=== PATIENT | female | born 1935 | race Caucasian/White ===

== ENCOUNTER 2016-05-21 12:29 | Emergency (ER) | payer MEDICARE ==
[2016-05-21 12:53] VITALS: TEMP 98.1
[2016-05-21] MEDS ORDERED: MORPHINE SULFATE 4 MG/ML SYRINGE IM STA (14:22)
[2016-05-21] MEDS ORDERED: DIAZEPAM 5 MG TAB PO STA (14:22)
--- NOTE | 2016-05-21 14:25 | ED ---
General Adult HPI - General Chief complaint: Extremity Problem,Nontraumatic Stated complaint: hip/leg pain Time Seen by Provider: 05/21/16 13:46 Source: patient Mode of arrival: wheelchair Limitations: no limitations - History of Present Illness Initial comments: Patient is a 80-year-old female with bilateral knee replacements and scheduled back laminectomy this week presenting with left knee pain. Patient states she fell on her left knee a month ago and has been doing fine. Patient says she noticed left knee pain for the past 3 days. She has been taking her [place] 10 mg every 12 hours. This does not help the pain. Patient is also on Celebrex. Patient denies fever, chills, chest pain, shortness breath, nausea, vomiting, diarrhea, weakness, numbness. - Related Data Home Medications Medication Instructions Recorded Confirmed ALPRAZolam [Xanax] 1 mg PO BID PRN 02/04/16 05/21/16 Aspirin 81 mg PO DAILY 02/04/16 05/21/16 Diphenox-Atrop 2.5-0.025 mg 2 tab PO TID PRN 02/04/16 05/21/16 [Lomotil] Enalapril/Hydrochlorothiazide 1 tab PO DAILY 02/04/16 05/21/16 [Vaseretic 5-12.5 mg] HYDROcodone/APAP 10-325MG [[place] 1 tab PO BID PRN 02/04/16 05/21/16 10-325] Omeprazole 20 mg PO DAILY 02/04/16 05/21/16 Temazepam [Restoril] 30 mg PO HS PRN 02/04/16 05/21/16 Acetaminophen Tab [Tylenol Tab] 1,000 mg PO Q6HR PRN 05/21/16 05/21/16 Celecoxib [CeleBREX] 200 mg PO BID 05/21/16 05/21/16 metFORMIN HCL 1,000 mg PO BID 05/21/16 05/21/16 Allergies Allergy/AdvReac Type Severity Reaction Status Date / Time Tetanus Vaccines and Toxoid Allergy Swelling Verified 05/21/16 14:08 [Tetanus Vaccines & Toxoid] morphine AdvReac Nausea & Verified 05/21/16 14:08 Vomiting dye Allergy Rash/Hives Uncoded 05/21/16 12:53 Review of Systems ROS Statement: Those systems with pertinent positive or pertinent negative responses have been documented in the HPI. Constitutional: No fever and no chills. HENT: No congestion, no rhinorrhea and no sore throat. Eyes: No discharge and no redness. Respiratory: No cough and no shortness of breath. Cardiovascular: No chest pain and no palpitations. Gastrointestinal: No nausea, no vomiting, no abdominal pain and no diarrhea. Genitourinary: No dysuria and no hematuria. Musculoskeletal: No back pain and +arthralgias. Skin: No pallor and no rash. Neurological: No dizziness and No headaches. ROS Other: All systems not noted in ROS Statement are negative. Past Medical History Past Medical History: GERD/Reflux, Hyperlipidemia, Hypertension Additional Past Medical History / Comment(s): back pain, arthritis History of Any Multi-Drug Resistant Organisms: None Reported Past Surgical History: Appendectomy, Back Surgery, Breast Surgery, Joint Replacement, Tonsillectomy Additional Past Surgical History / Comment(s): bilateral knee sx Past Psychological History: Anxiety, Depression Smoking Status: Former smoker Past Alcohol Use History: None Reported Past Drug Use History: None Reported General Exam - General Exam Comments Initial Comments: Constitutional: Patient appears well-developed and well-nourished. Mild distress. Head: Normocephalic and atraumatic. Eyes: Conjunctivae and EOM are normal. Right eye exhibits no discharge. Left eye exhibits no discharge. No scleral icterus. Neck: Normal range of motion. Neck supple. Cardiovascular: Normal rate and regular rhythm. No murmur heard. Pulmonary/Chest: Effort normal and breath sounds normal. No respiratory distress. No wheezes. Abdominal: Soft. No distension. There is no tenderness. There is no rebound and no guarding. Musculoskeletal: Normal range of motion. No edema or tenderness. Left knee has midline scar from prior knee replacement. No swelling. No redness. No warmth. Full range of motion. No obvious location tenderness. Distal pulses and sensation intact. Patient ambulated without difficulties in the room. Neurological: Patient alert and oriented to person, place, and time. Skin: Skin is warm and dry. Not diaphoretic. Nursing notes and vitals reviewed. Limitations: no limitations Course Vital Signs 05/21/16 05/21/16 12:48 15:32 Temperature 98.1 F 98.1 F Pulse Rate 101 H Respiratory 16 16 Rate Blood Pressure 204/92 O2 Sat by Pulse 96 Oximetry - Reevaluation(s) Reevaluation #1: On reevaluation after medications patient doing much better very thankful that pain is controlled. Medical Decision Making - Medical Decision Making Patient a 80-year-old female with past history of bilateral knee replacements presenting with acute left knee pain for the past 2 days. Patient's been trying her [place] 10 mg twice a day without relief. X-ray was unremarkable for any acute fractures or derangement of knee replacement. Informed patient that she can take her [place] the morning should she have pain. Encouraged patient to take her Celebrex. Patient advised that she can ice it or heat knee. Prior to discharge, patient was resting comfortably in bed. Course of stay improved. Denies pain. Discussed physical exam and diagnostic tests with patient. Questions answered and patient is agreeable to discharge with close follow up with Primary Care Physician. Instructed to return to Emergency Department if symptoms worsen. Disposition Clinical Impression: Left knee pain Disposition: HOME SELF-CARE Condition: Good Instructions: Knee Pain (ED) Referrals: Harvey Wesley MD [Primary Care Provider] - 1-2 days
--- NOTE | 2016-05-21 15:02 | XR ---
EXAMINATION TYPE: XR knee 4V LT DATE OF EXAM: 05/21/2016 2:57 PM COMPARISON: NONE HISTORY: 80 year-old female left knee pain for 3 days TECHNIQUE: 4 views FINDINGS: The distal femoral and proximal tibial components of the left total knee arthroplasty appear [place]. No periprosthetic fracture seen. The merchant's view shows the patella appropriately situated al carol the trochlear groove. Extensor mechanism is intact. No significant knee joint effusion. IMPRESSION: Uncomplicated left total knee arthroplasty.
[2016-05-21 15:58] VITALS: BP 144/85; PULSE 89; RESP 18
== END 2016-05-21 15:45 | disposition home or self-care (01) ==
LOC: EC 12:29
DX: M25.562 Pain in left knee (principal); Z96.653 Presence of artificial knee joint, bilateral; Z79.82 Long term (current) use of aspirin; Z79.899 Other long term (current) drug therapy; Z79.84 Long term (current) use of oral hypoglycemic drugs; Z88.5 Allergy status to narcotic agent; Z88.7 Allergy status to serum and vaccine; Z91.048 Other nonmedicinal substance allergy status; K21.9 Gastro-esophageal reflux disease without esophagitis; I10 Essential (primary) hypertension; M19.90 Unspecified osteoarthritis, unspecified site; Z87.891 Personal history of nicotine dependence
CPT/HCPCS: 73564; 96372; 99283; J2270

== ENCOUNTER → 2016-05-24 | Outpatient (CLI) | payer MEDICARE ==
--- NOTE | 2016-05-24 12:38 | XR ---
EXAMINATION TYPE: XR chest 2V DATE OF EXAM: 05/24/2016 12:26 PM COMPARISON: NONE TECHNIQUE: PA and lateral views submitted. HISTORY: Pre-surgical for lumbar surgery FINDINGS: The lungs are clear and there is no pneumothorax, pleural effusion, or focal pneumonia. Hypertrophi c and degenerative changes spine. Atherosclerotic change aorta. Linear changes involving the lung bas es suggestive of atelectasis. Prominence the right paratracheal soft tissues. This may be vascular ra ther than related to adenopathy or related to the thyroid. Appears stable correlate clinically. IMPRESSION: 1. No acute process.
== END | disposition home or self-care (01) ==
LOC: RADXRMAIN 12:09
PROVIDERS: ATTEND Orthopaedic Surgery Orthopaedic Surgery of the Spine
DX: Z01.812 Encounter for preprocedural laboratory examination (principal); Z01.810 Encounter for preprocedural cardiovascular examination
CPT/HCPCS: 71020

== ENCOUNTER → 2016-05-24 | Outpatient (CLI) | payer MEDICARE ==
[2016-05-24 13:42] LABS: Partial Thromboplastin Time 25.3 sec (22.0-30.0); Prothrombin Time 10.5 sec (9.0-12.0)
[2016-05-24 13:46] LABS: Basophils # (A) 0.1 k/uL (0-0.2); Basophils % (A) 1 %; CH 27.5; CHCM 31.4; Eosinophils # (A) 0.2 k/uL (0-0.7); Eosinophils % (A) 3 %; HCT 40.8 % (34.0-46.0); HDW 2.55; HGB 12.9 gm/dL (11.4-16.0); Hypochromasia Slight; Luc # (Auto) 0.24; Luc % (Auto) 3; Lymphocytes # (A) 2.3 k/uL (1.0-4.8); Lymphocytes % (A) 31 %; MCH 27.7 pg (25.0-35.0); MCHC 31.5 g/dL (31.0-37.0); MCV 87.8 fL (80.0-100.0); Mean Platelet Volume 7.3; Monocytes # (A) 0.3 k/uL (0-1.0); Monocytes % (A) 5 %; Neutrophils # (A) 4.3 k/uL (1.3-7.7); Neutrophils % (A) 58 %; RBC 4.65 m/uL (3.80-5.40); RDW 14.1 % (11.5-15.5); WBC 7.4 k/uL (3.8-10.6); WBC (Perox) 7.86
[2016-05-24 14:06] LABS: Calcium 9.4 mg/dL (8.4-10.2); Potassium 4.4 mmol/L (3.5-5.1)
== END | disposition home or self-care (01) ==
LOC: LABPAT 12:45
PROVIDERS: ATTEND Orthopaedic Surgery Orthopaedic Surgery of the Spine
DX: Z01.812 Encounter for preprocedural laboratory examination (principal); Z51.81 Encounter for therapeutic drug level monitoring; Z79.01 Long term (current) use of anticoagulants
CPT/HCPCS: 71020; 80048; 85025; 85610; 85730; 86850; 86900; 86901; 87070

== ENCOUNTER 2016-05-25 11:28 | Emergency (ER) | payer MEDICARE ==
[2016-05-25 11:47] VITALS: RESP 18; TEMP 97.4
[2016-05-25] MEDS ORDERED: HYDROmorphone 1 MG/ML 1 ML SYRINGE IM STA (12:52)
--- NOTE | 2016-05-25 13:42 | XR ---
EXAMINATION TYPE: XR knee complete LT DATE OF EXAM: 05/25/2016 1:32 PM CLINICAL HISTORY: Left knee pain increasing in severity TECHNIQUE: Three views of the left knee are obtained. COMPARISON: Left knee x-ray from 4 days ago. FINDINGS: [place] osseous structures are demineralized. There is no acute fracture/dislocation eviden t in left knee. Metallic hardware is redemonstrated. Alignment is stable. No suspicious surrounding lucency is seen. The overlying soft tissue appears unremarkable. IMPRESSION: There is no acute fracture or dislocation in the left knee. No significant change from p rior.
--- NOTE | 2016-05-25 13:52 | XR ---
EXAMINATION TYPE: XR Hip LT and AP Pelvis DATE OF EXAM: 05/25/2016 1:32 PM COMPARISON: Pelvic x-ray February 04, 2016.. HISTORY: Pelvic and left hip pain increasing in severity. TECHNIQUE: A single AP view of the pelvis is obtained. Two views of the left hip are obtained. FINDINGS: Osseous structures are demineralized which is noted to lower radiographic sensitivity. The re is no acute fracture/dislocation evident in the pelvis. The hip sacroiliac joints appear symmetri c and unremarkable. There is stable moderate axial joint space loss in both hips. The overlying soft tissue appears unremarkable. Two views of left hip show no acute fracture or dislocation. No focal lytic or sclerotic lesion seen in the proximal left femur. The overlying soft tissue is unremarkable. IMPRESSION: There is no acute fracture or dislocation in the pelvis or left hip.
--- NOTE | 2016-05-25 13:56 | XR ---
EXAM TYPE: LUMBAR SPINE X RAY SERIES COMPARISON: 02/04/2016 HISTORY: Pain TECHNIQUE: Three views are submitted. FINDINGS: Alignment is anatomic. The pedicles are intact. The transverse processes are intact. There is post surgical change which appears in near-anatomic alignment. Severe degenerative disc disease L3-L4. Dif fuse osteopenia noted. Vascular calcification seen. IMPRESSION: 1. Postsurgical change.
--- NOTE | 2016-05-25 14:15 | ED ---
Back Pain HPI - General Chief Complaint: Back Pain/Injury Stated Complaint: Pain hurts everywhere Time Seen by Provider: 05/25/16 12:42 Source: patient, RN notes reviewed Limitations: no limitations - History of Present Illness Initial Comments: 80-year-old female presents emergency Department chief complaint fall, chronic back pain. Patient states she currently is scheduled for surgery of 6 days. Patient states that she takes [place] 10/325. Patient states that she fell yesterday increased low back pain, left hip and left knee pain. Patient has had ongoing left knee and hip pain diagnosed with lumbar radiculopathy. Patient scheduled for discectomy. Patient denies any bowel, bladder incontinence or retention. Denies any saddle anesthesias. Patient offers no complaints. - Related Data Home Medications Medication Instructions Recorded Confirmed ALPRAZolam [Xanax] 1 mg PO BID PRN 02/04/16 05/25/16 Aspirin 81 mg PO DAILY 02/04/16 05/25/16 Diphenox-Atrop 2.5-0.025 mg 2 tab PO TID PRN 02/04/16 05/25/16 [Lomotil] Enalapril/Hydrochlorothiazide 1 tab PO DAILY 02/04/16 05/25/16 [Vaseretic 5-12.5 mg] HYDROcodone/APAP 10-325MG [[place] 1 tab PO BID PRN 02/04/16 05/25/16 10-325] Omeprazole 20 mg PO DAILY 02/04/16 05/25/16 Temazepam [Restoril] 30 mg PO HS PRN 02/04/16 05/25/16 Celecoxib [CeleBREX] 200 mg PO BID 05/21/16 05/25/16 metFORMIN HCL 1,000 mg PO BID 05/21/16 05/25/16 Allergies Allergy/AdvReac Type Severity Reaction Status Date / Time Tetanus Vaccines and Toxoid Allergy Swelling Verified 05/25/16 13:47 [Tetanus Vaccines & Toxoid] morphine AdvReac Nausea & Verified 05/25/16 13:47 Vomiting dye Allergy Rash/Hives Uncoded 05/21/16 12:53 Review of Systems ROS Statement: Those systems with pertinent positive or pertinent negative responses have been documented in the HPI. ROS Other: All systems not noted in ROS Statement are negative. Past Medical History Past Medical History: GERD/Reflux, Hyperlipidemia, Hypertension Additional Past Medical History / Comment(s): back pain, arthritis History of Any Multi-Drug Resistant Organisms: None Reported Past Surgical History: Appendectomy, Back Surgery, Breast Surgery, Joint Replacement, Tonsillectomy Additional Past Surgical History / Comment(s): bilateral knee sx Past Psychological History: Anxiety, Depression Smoking Status: Former smoker Past Alcohol Use History: None Reported Past Drug Use History: None Reported General Exam Limitations: no limitations General appearance: alert, in no apparent distress Head exam: Present: atraumatic, normocephalic, normal inspection Neck exam: Present: normal inspection. Absent: tenderness, meningismus, lymphadenopathy Respiratory exam: Present: normal lung sounds bilaterally. Absent: respiratory distress, wheezes, rales, rhonchi, stridor Cardiovascular Exam: Present: regular rate, normal rhythm, normal heart sounds. Absent: systolic murmur, diastolic murmur, rubs, gallop, clicks GI/Abdominal exam: Present: soft, normal bowel sounds. Absent: distended, tenderness, guarding, rebound, rigid Extremities exam: Present: other (Left knee nontender, full range of motion patient reports pain though no iris deformity, ecchymosis or swelling. Hip no pain with log roll, no shortening no rotation noted) Back exam: Present: full ROM, tenderness, paraspinal tenderness, other (Patient has old surgical scar noted, mild tenderness, patient has full range of motion) . Absent: CVA tenderness (R), muscle spasm, vertebral tenderness Neurological exam: Present: alert, oriented X3, CN II-XII intact Skin exam: Present: warm, dry, intact, normal color. Absent: rash Course Vital Signs 05/25/16 11:44 Temperature 97.4 F L Pulse Rate 106 H Respiratory 18 Rate Blood Pressure 166/99 O2 Sat by Pulse 95 Oximetry Medical Decision Making - Medical Decision Making 80-year-old female presented for pain back, left lower extremity. Patient does take [place] currently. I Did Offer to prescribe Percocet to get her to her surgery though failure in the room stated that she does not need any further pain medication. Return parameters discussed. Disposition Clinical Impression: Chronic back pain, Fall, Lumbar radiculopathy Disposition: HOME SELF-CARE Condition: Stable Instructions: Chronic Back Pain (ED) Additional Instructions: Please follow-up with your surgeon Dr. Howe. Please return to the Emergency Department if symptoms worsen or any other concerns. Referrals: Harvey Wesley MD [Primary Care Provider] - 1-2 days Time of Disposition: 14:20
[2016-05-25 14:35] VITALS: BP 133/87; PULSE 109
== END 2016-05-25 14:35 | disposition home or self-care (01) ==
LOC: EC 11:28
DX: M54.16 Radiculopathy, lumbar region (principal); M54.5 Low back pain; G89.29 Other chronic pain; K21.9 Gastro-esophageal reflux disease without esophagitis; E78.5 Hyperlipidemia, unspecified; I10 Essential (primary) hypertension; F32.9 Major depressive disorder, single episode, unspecified; F41.9 Anxiety disorder, unspecified; Z87.891 Personal history of nicotine dependence; Z79.84 Long term (current) use of oral hypoglycemic drugs; Z79.82 Long term (current) use of aspirin; Z79.899 Other long term (current) drug therapy; Z88.7 Allergy status to serum and vaccine; Z88.5 Allergy status to narcotic agent; Z91.09 Other allergy status, other than to drugs and biological substances; W19.XXXA Unspecified fall, initial encounter
CPT/HCPCS: 72100; 73502; 73562; 99283; 96372; J1170

== ENCOUNTER 2016-05-31 13:58 | Day surgery (SDC) | payer MEDICARE ==
[2016-05-26 12:51] VITALS: BMI 25.9
[~2016-05-31 13:58] MED LIST: BACITRACIN 50,000 UNIT, POLYMYXIN B 500,000 UNIT in SODIUM CHLORIDE 0.9% IRRIGATIO 1,00... IRRIGATION ONE; HYDROmorphone 1 MG/ML 1 ML SYRINGE IVP PRN; LIDOCAINE 1% 20 ML VIAL (10MG/ML) FOR IV START INTRADERMA PRN; ONDANSETRON 4 MG/2 ML VIAL IVP ONE; ceFAZolin 2 GM in SODIUM CHLORIDE 0.9% 100 ML IVPB ONE
[2016-05-31] MEDS: LACTATED RINGERS 1,000 ML IV SCH (15:14)
[2016-05-31] MEDS ORDERED: MIDAZOLAM 2 MG/2 ML VIAL IV ONE (15:17)
[2016-05-31 15:22] LABS: Glucose,Whole Blood 124 mg/dL (75-99)
[2016-05-31] MEDS ORDERED: LIDOCAINE 1% INJ 10MG/ML (20 ML MDV) ONE (16:41)
[2016-05-31] MEDS ORDERED: fentaNYL (PF) 50 MCG/ML 2 ML AMP ONE (16:41)
[2016-05-31] MEDS ORDERED: PROPOFOL 10 MG/ML 20 ML VIAL IV ONE (16:41)
[2016-05-31] MEDS ORDERED: SUCCINYLCHOLINE CHLORIDE 100 MG/5 ML SYR IV ONE (16:41)
[2016-05-31] MEDS ORDERED: SODIUM CHLORIDE 0.9% 100 ML with CLINDAMYCIN 600 MG IV ONE ×2 (16:55)
[2016-05-31] MEDS ORDERED: LIDOCAINE 0.5%-EPI 1:200,000 50 ML VIAL SQ ONE (17:04)
[2016-05-31] MEDS ORDERED: THROMBIN (BOVINE) 5,000 UNIT VIAL TOPICAL ONE ×2 (17:04→17:54)
[2016-05-31] MEDS ORDERED: methylPREDNISolone ACETATE 80 MG/ML 1 ML VIAL INJ ONE ×2 (17:11→17:38)
[2016-05-31] MEDS ORDERED: GELATIN SPONGE,ABSORB (SMALL) 1 EACH SPONGE TOPICAL ONE ×2 (17:12→17:54)
[2016-05-31] MEDS ORDERED: LACTATED RINGERS 1,000 ML IV ONE ×2 (17:38)
--- NOTE | 2016-05-31 18:13 | P.OP ---
Date of Procedure: 05/31/16 Preoperative Diagnosis: Herniated nucleus pulposus L3 4, degenerative disc disease L3 4, adjacent level degeneration with prior fusion L4 to S1, lower extremity radiculopathy, low back pain, Postoperative Diagnosis: Same Anesthesia: GETA Pathology: none sent Condition: stable Disposition: PACU Description of Procedure: BRIEF OPERATIVE NOTE Preoperative Diagnosis: Herniated nucleus pulposus L3 4, spinal stenosis, degenerative disc disease, lower extremity radiculopathy, low back pain, adjacent level degeneration at L3 4 with prior fusion L4-S1 Postoperative Diagnosis: Same Procedure: Laminectomy and decompression L3 4 Discectomy for decompression L3 4 Use of fluoroscopic guidance Surgeon: Dr. Howe Buffet Manager: Shorty Tinoco is present throughout the entire the case persistence during positioning, dissection, exposure, visualization, and all crucial elements of the case as well as closure. Anesthesia: General anesthesia per Dr. Carroll Estimated blood loss: approximately 200 mL Complications: None apparent Components implanted: none Disposition: To recovery room in good stable condition. OPERATIVE INDICATIONS The patient has been having issues in their lower back and lower extremities. The patient has been through conservative treatment. We discussed various treatment options including surgery, and the patient wishes to proceed with surgery. she has history of chronic issues with her low back and has been through multiple surgeries in the past with prior fusion L4 to S1 done at an outside institution. More recently she has developed increasing severity of her pain and symptoms with severe low back and left lower extremity radicular symptoms which were somewhat of a change for her. These are becoming incapacitating symptoms for her and she was found have a large disc herniation at L3 4 which correlated well with her worsening symptoms. I discussed at length with her and her and her family the fact that the new disc herniation was not specifically contribute into all of her prior issues with her low back but was likely a significant factor in her newer symptoms. She had been through extensive conservative treatment without lasting benefit and we discussed surgical options. She understands that surgery would address the new disc herniation it would not be addressing her prior fusion site from L4 to S1. We discussed the risk, patient's alternatives and benefits of surgery including but not limited to, risk of bleeding risk of infection, risk of need for further surgery, risk of decreased, loss of motion, loss of function, nerve damage, paralysis, heart attack, blindness and . OPERATIVE SUMMARY After discussing all the risks, patient alternatives and benefits at length, the patient elected to proceed with surgical intervention, signed informed consent, and presented for their procedure. The patient was seen and examined in the preoperative holding area and the surgical site was marked. The patient was given antibiotics and brought to the operating room. The patient was sedated and intubated by anesthesia in standard fashion. The patient was positioned on to the operating room table in a prone position on the appropriate frame which was well-padded and well molded. We were careful to pad any bony prominences and pressure points. We were careful to maintain the patient's cervical spine and good neutral alignment and position throughout. The patient was prepped and draped in a normal standard fashion. An appropriate timeout and keystone protocol performed. We were able to proceed with the surgery. Fluoroscopy was utilized to establish the appropriate level. we are able to visualize the hardware at L4 to S1 which remained intact. The local wound area was infiltrated with local anesthetic. An incision was made at the midline longitudinally over the appropriate levels At L3 4. Dissection was taken down subcutaneously to the level of the fascia which was split midline. Dissection was taken over the lamina. Intraoperative fluoroscopy was taken which showed a marker at the appropriate level At L3 4. With the appropriate level positively confirmed, we were able to proceed with laminectomy. The wound was copiously irrigated and suctioned dry as had been done periodically throughout the case. I performed a laminectomy with a combination of curettes and a high-speed bur and [place] rongeurs. A small medial facetectomy was performed again further access. A partial foraminotomy was also performed. Portions of the ligamentum flavum were taken down to expose the dura and traversing nerve root. I was able to mobilize the traversing nerve root and gain access to the disc space. Note was made of obvious compression from the disc. Protecting the soft tissue structures, a small annulotomy was established. there were large extruded disc fragments that had migrated cephalad behind L3 and behind the disc at L34. The extruded disc fragments were removed. I was able to perform discectomy and remove any extruded disc fragments and any loose fragments from within the disc itself. There is some disc severe desiccation noted. large portions of the annulus were torn and everted and them removed as well. I tried to preserve the disc annulus that appeared stable. There were no further extruded fragments noted. There is no evidence of dural tear or leak. Good hemostasis maintained. The wound was copiously irrigated and suctioned dry. Good decompression and discectomy was noted. We were able to proceed with closure. The fascia was closed for a watertight closure. The subcuticular tissue was closed with absorbable suture. The wound was cleaned and dried and dressed with the appropriate dressing. The drapes were broken down. The patient was gently rolled back onto their hospital bed being careful to maintain their cervical spine and good neutral alignment and position. They were woken up by anesthesia, extubated, and brought to the recovery room in good stable condition. The patient will be admitted to the hospital for observation and for appropriate postoperative care, medical management and monitoring. We will continue to follow them closely about the postoperative course.
[2016-05-31] MEDS ORDERED: ONDANSETRON 4 MG/2 ML VIAL IVP PRN (18:14)
[2016-05-31] MEDS ORDERED: HYDROcodone/APAP 5-325MG 1 EACH TAB PO PRN (18:14)
[2016-05-31] MEDS ORDERED: DIAZEPAM 5 MG TAB PO PRN (18:14)
[2016-05-31] MEDS ORDERED: BENZOCAINE/MENTHOL LOZENG 1 EACH LOZENGE MUCOUS MEM PRN (18:14)
[2016-05-31] MEDS ORDERED: HYDROmorphone 1 MG/ML 1 ML SYRINGE IVP PRN (18:14)
[2016-05-31] MEDS ORDERED: TEMAZEPAM 30 MG CAP PO PRN (18:16)
[2016-05-31] MEDS ORDERED: DIPHENOX-ATROP 2.5-0.025 MG 1 EACH TAB PO PRN (18:16)
[2016-05-31] MEDS ORDERED: HYDROcodone/APAP 10-325MG 1 EACH TAB PO PRN (18:16)
[2016-05-31 18:38] LABS: Glucose,Whole Blood 123 mg/dL (75-99)
[2016-05-31] MEDS ORDERED: MEPERIDINE 50 MG/ML SYRINGE IVP ONE (18:56)
[2016-05-31] MEDS: CIPROFLOXACIN HCL 500 MG TAB PO SCH (22:00)
[2016-05-31] MEDS: metFORMIN 500 MG TAB PO SCH (22:00)
[2016-05-31] MEDS: GABAPENTIN 300 MG CAP PO SCH (22:00)
[2016-05-31] MEDS: MELOXICAM 7.5 MG TAB PO SCH (22:00)
[2016-05-31] MEDS: CLINDAMYCIN 900 MG in DEXTROSE 5% IN WATER 50 ML IVPB SCH ×2 (22:53)
[2016-05-31] MEDS: SODIUM CHLORIDE 0.9% 1,000 ML IV SCH (23:02)
[2016-06-01] MEDS: SODIUM CHLORIDE 0.9% 1,000 ML IV SCH (00:50)
[2016-06-01] MEDS: CLINDAMYCIN 900 MG in DEXTROSE 5% IN WATER 50 ML IVPB SCH ×2 (04:52)
--- NOTE | 2016-06-01 06:53 | XR ---
EXAM TYPE: LUMBAR SPINE X RAY SERIES COMPARISON: NONE HISTORY: Intraoperative TECHNIQUE: 4 views are submitted. FINDINGS: Single view demonstrates postoperative change in near-anatomic alignment IMPRESSION: 1. Postoperative change.
--- NOTE | 2016-06-01 06:54 | FL ---
EXAMINATION TYPE: FL guidance operating room DATE OF EXAM: 05/31/2016 5:29 PM HISTORY: Flouroscopy time 4 seconds of fluoroscopy provided. IMPRESSION: 1. Fluoroscopy time.
[2016-06-01] MEDS ORDERED: PANTOPRAZOLE 40 MG TABLET PO SCH (07:30)
[2016-06-01 07:50] LABS: Glucose,Whole Blood 164 mg/dL (75-99)
[2016-06-01 08:02] VITALS: BP 128/80; RESP 18; TEMP 97.9
[2016-06-01] MEDS ORDERED: LISINOPRIL 10 MG TAB PO SCH (09:00)
[2016-06-01] MEDS ORDERED: ASPIRIN 81 MG CHEW PO SCH (09:00)
[2016-06-01] MEDS ORDERED: HYDROCHLOROTHIAZIDE 12.5 MG CAP PO SCH (09:00)
--- NOTE | 2016-06-01 09:12 | P.DS ---
Providers Date of admission: 05/31/2016 Expected date of discharge: 06/01/16 Attending physician: Ramy Howe Primary care physician: Harvey Wesley - Discharge Diagnosis(es) (1) Herniated nucleus pulposus, L3-4 Current Visit: Yes Status: Acute (2) Lumbar degenerative disc disease Current Visit: Yes Status: Acute (3) Arthrodesis status Current Visit: Yes Status: Acute (4) Lumbar radiculopathy Current Visit: No Status: Acute (5) Low back pain Current Visit: Yes Status: Acute Hospital Course: This is a pleasant 80-year-old female who presented with L3-4 herniated nucleus pulposus and degenerative disc disease that is adjacent to her previous lumbar fusion L4-S1, low back pain, and lower extremity radiculopathy who failed outpatient conservative therapy. She admitted for a laminectomy decompression and discectomy at L3-4. The patient tolerated the procedure well and did well postoperatively. She states she's feels she is having improvement of her lower extremity radiculopathy symptoms already postsurgically. She states she is ready for discharge home. She's been able to transfer to a bedside commode but states she has not been ambulating yet postsurgically. She feels she is able to do so and feels she would do better at home and remaining in the hospital. Condition on day of discharge stable. Patient will be discharged home. Patient was cleared preoperatively for surgery by Dr. Harvey Mckeon. Patient currently denies any nausea, vomiting, fever, or chills. Patient is eating and voiding freely without difficulty. Patient may shower Tegaderm dressing intact. Patient may remove Tegaderm dressing in 3 days and shower without a dressing at that time. Patient should keep Steri-Strips intact and allow them to fall off naturally. Patient should refrain from driving until at least after their first follow-up appointment in the office. Patient should avoid excessive bending, lifting, and twisting; no lifting greater than 10 pounds. Patient is given a prescription for [place] 10 mg/325 mg 1 tab every 12 hours as needed for pain dispensed 60 (Sixty) at the time of discharge. Physical Exam on day of discharge: Patient is awake, alert, and oriented 3 Vital signs stable Good chest excursion with deep inspiration and expiration Abdomen soft nontender No signs or symptoms of DVT; no calf pain Extensor hallucis longus, plantarflexion, and dorsiflexion positive sustained bilateral lower extremities Incision is dry and intact; no erythema, purulence, or signs of infection Evidence of a small area of dried blood at the inferior portion of the dressing with no active drainage Tegaderm dressing and non-stick Telfa intact Procedures: L3-4 laminectomy and decompression with discectomy Patient Condition at Discharge: Stable Plan - Discharge Summary New Discharge Prescriptions: HYDROcodone/APAP 10-325MG [[place] 10-325] 1 tab PO Q12H PRN #60 tab PRN Reason: Severe Pain Discharge Medication List ALPRAZolam [Xanax] 1 mg PO BID PRN 02/04/16 [History] Aspirin 81 mg PO DAILY 02/04/16 [History] Diphenox-Atrop 2.5-0.025 mg [Lomotil] 2 tab PO TID PRN 02/04/16 [History] Enalapril/Hydrochlorothiazide [Vaseretic 5-12.5 mg] 1 tab PO DAILY 02/04/16 [ History] HYDROcodone/APAP 10-325MG [[place] 10-325] 1 tab PO BID PRN 02/04/16 [History] Omeprazole 20 mg PO DAILY 02/04/16 [History] Temazepam [Restoril] 30 mg PO HS PRN 02/04/16 [History] Celecoxib [CeleBREX] 200 mg PO BID 05/21/16 [History] metFORMIN HCL 1,000 mg PO BID 05/21/16 [History] Ciprofloxacin HCl [Cipro] 500 mg PO Q12HR 05/29/16 [History] Gabapentin [Neurontin] 300 mg PO BID 05/29/16 [History] fentaNYL 100MCG/HR PATCH [Durages[place] 100MCG/HR] 1 patch TRANSDERM Q72H 05/29/16 [ History] HYDROcodone/APAP 10-325MG [[place] 10-325] 1 tab PO Q12H PRN #60 tab 05/31/16 [Rx] Follow up Appointment(s)/Referral(s): Shorty Drummond, CLAUDIA [PHYSICIAN [employer]] - 2 Weeks (Patient may follow-up with Shorty Drummond PA-C or Dr. Davonte Howe at [facility] in 2-3 weeks following discharge. ) Activity/Diet/Wound Care/Special Instructions: 1. Patient may shower Tegaderm dressing intact. 2. Patient may remove Tegaderm dressing in 3 days and shower without a dressing at that time. 3. Patient should keep Steri-Strips intact and allow them to fall off naturally. 4. Patient should refrain from driving until at least after their first follow- up appointment in the office. 5. Patient should avoid excessive bending, twisting, and lifting; no lifting greater than 10 pounds 6. Do not soak in tub Discharge Disposition: HOME SELF-CARE
[2016-06-01] MEDS: GABAPENTIN 300 MG CAP PO SCH (09:17)
[2016-06-01] MEDS: MELOXICAM 7.5 MG TAB PO SCH (09:17)
[2016-06-01] MEDS: CIPROFLOXACIN HCL 500 MG TAB PO SCH (09:17)
[2016-06-01] MEDS: LACTATED RINGERS 1,000 ML IV SCH (09:18)
[2016-06-01] MEDS: metFORMIN 500 MG TAB PO SCH (09:18)
[2016-06-01 11:57] LABS: Glucose,Whole Blood 109 mg/dL (75-99)
[2016-06-01 14:24] VITALS: PULSE 84
== END 2016-06-01 13:35 | disposition home or self-care (01) ==
LOC: OR 13:58 → 5MS5E 18:19 → OR 06-01 13:35
PROVIDERS: ATTEND Orthopaedic Surgery Orthopaedic Surgery of the Spine
DX: M51.16 Intervertebral disc disorders with radiculopathy, lumbar region (principal); M48.06 Spinal stenosis, lumbar region; Z98.1 Arthrodesis status; G89.4 Chronic pain syndrome; M96.1 Postlaminectomy syndrome, not elsewhere classified; E11.9 Type 2 diabetes mellitus without complications; I12.9 Hypertensive chronic kidney disease with stage 1 through stage 4 chronic kidney disease, or unspecified chronic kidney disease; N18.9 Chronic kidney disease, unspecified; E78.2 Mixed hyperlipidemia; K21.9 Gastro-esophageal reflux disease without esophagitis; F32.9 Major depressive disorder, single episode, unspecified; F41.9 Anxiety disorder, unspecified; Z79.84 Long term (current) use of oral hypoglycemic drugs; Z79.82 Long term (current) use of aspirin; Z79.891 Long term (current) use of opiate analgesic; Z79.899 Other long term (current) drug therapy; Z88.5 Allergy status to narcotic agent; Z88.7 Allergy status to serum and vaccine; Z88.8 Allergy status to other drugs, medicaments and biological substances; Z88.1 Allergy status to other antibiotic agents; Z91.041 Radiographic dye allergy status; Z87.891 Personal history of nicotine dependence
CPT/HCPCS: 63030; 97161; 86850; 72020; J2250; J1040; J2175; J2405; J2001; J3010; J1170; J0330; J2704; 86900; 86901

== ENCOUNTER 2016-10-28 22:32 | Inpatient (IN) | payer MEDICARE ==
[2016-10-28 22:47] VITALS: RESP 18
--- NOTE | 2016-10-28 22:50 | ED ---
Chest Pain HPI - General Chief Complaint: Chest Pain Stated Complaint: Nausea, vomiting Time Seen by Provider: 10/28/16 22:36 Source: patient Mode of arrival: EMS Limitations: no limitations - History of Present Illness Initial Comments: This patient is a 80-year-old woman who presents to be evaluated for substernal chest pain that came on this evening, probably around 7:30. This is been preceded by probably around a half hour during which she had had some nausea vomiting and diarrhea. The patient states that she became very anxious about all this and decided to be seen here. Patient is not able to characterize the pain stating that it hurts. He is currently moderate. It has been constant since it came on. She has not noted worsening or relieving factors. MD Complaint: chest pain Onset/Timin -: hour(s) Onset: during rest Pain Location: substernal Pain Radiation: none Severity: moderate Quality: other (Unable to characterize) Consistency: constant Improves With: nothing Worsens With: nothing Anginal Symptoms: nausea, vomiting Treatments Prior to Arrival: none - Related Data Home Medications Medication Instructions Recorded Confirmed ALPRAZolam [Xanax] 1 mg PO BID PRN 02/04/16 10/28/16 Aspirin 81 mg PO DAILY 02/04/16 10/28/16 Diphenox-Atrop 2.5-0.025 mg 2 tab PO TID PRN 02/04/16 10/28/16 [Lomotil] Enalapril/Hydrochlorothiazide 1 tab PO DAILY 02/04/16 10/28/16 [Vaseretic 5-12.5 mg] HYDROcodone/APAP 10-325MG [[place] 1 tab PO BID PRN 02/04/16 10/28/16 10-325] Omeprazole 20 mg PO DAILY 02/04/16 10/28/16 Temazepam [Restoril] 30 mg PO HS PRN 02/04/16 10/28/16 Celecoxib [CeleBREX] 200 mg PO BID 05/21/16 10/28/16 metFORMIN HCL 1,000 mg PO BID 05/21/16 10/28/16 Ciprofloxacin HCl [Cipro] 500 mg PO Q12HR 05/29/16 10/28/16 Gabapentin [Neurontin] 300 mg PO BID 05/29/16 10/28/16 fentaNYL 100MCG/HR PATCH 1 patch TRANSDERM Q72H 05/29/16 10/28/16 [Duragesic 100MCG/HR] Previous Rx's Medication Instructions Recorded HYDROcodone/APAP 10-325MG [[place] 1 tab PO Q12H PRN #60 tab 05/31/16 10-325] Allergies Allergy/AdvReac Type Severity Reaction Status Date / Time Iodine and Iodide Containing Allergy Rash/Hives Verified 10/28/16 22:46 Produc Tetanus Vaccines and Toxoid Allergy Swelling Verified 10/28/16 22:46 [Tetanus Vaccines & Toxoid] morphine AdvReac Nausea & Verified 10/28/16 22:46 Vomiting Review of Systems ROS Statement: Those systems with pertinent positive or pertinent negative responses have been documented in the HPI. ROS Other: All systems not noted in ROS Statement are negative. Constitutional: Denies: fever, chills Respiratory: Denies: cough, dyspnea Cardiovascular: Reports: as per HPI, chest pain. Denies: palpitations, orthopnea, edema, syncope Gastrointestinal: Reports: nausea, vomiting, diarrhea. Denies: abdominal pain, constipation, hematemesis, melena, hematochezia Genitourinary: Denies: dysuria, hematuria Musculoskeletal: Denies: back pain Skin: Denies: rash Neurological: Denies: headache, weakness, numbness EKG Findings - EKG Results: EKG: interpreted by SANGITA, sinus rhythm (Rate 78 bpm), normal axis, normal QRS, normal ST/T, no acute changes - DE, Pacemaker, Normal: Normal tracing: normal tracing Past Medical History Past Medical History: GERD/Reflux, Hyperlipidemia, Hypertension Additional Past Medical History / Comment(s): back pain, arthritis History of Any Multi-Drug Resistant Organisms: None Reported Past Surgical History: Appendectomy, Back Surgery, Breast Surgery, Joint Replacement, Tonsillectomy Additional Past Surgical History / Comment(s): bilateral knee sx Past Anesthesia/Blood Transfusion Reactions: No Reported Reaction Past Psychological History: Anxiety, Depression Smoking Status: Former smoker Past Alcohol Use History: None Reported Past Drug Use History: None Reported - Past Family History Father Family Medical History: Myocardial Infarction (DE) General Exam Limitations: no limitations General appearance: alert, in no apparent distress, anxious Head exam: Present: atraumatic, normocephalic Eye exam: Present: normal appearance ENT exam: Present: mucous membranes dry Neck exam: Present: normal inspection, full ROM Respiratory exam: Present: normal lung sounds bilaterally. Absent: respiratory distress, wheezes, rales, rhonchi, stridor, chest wall tenderness Cardiovascular Exam: Present: regular rate, normal rhythm, normal heart sounds. Absent: systolic murmur, diastolic murmur, rubs, gallop GI/Abdominal exam: Present: soft. Absent: distended, tenderness, guarding, rebound, rigid Extremities exam: Present: normal inspection, normal capillary refill. Absent: pedal edema, calf tenderness Back exam: Present: normal inspection. Absent: CVA tenderness (R), CVA tenderness (L) Neurological exam: Present: alert Psychiatric exam: Present: anxious Skin exam: Present: warm, dry, intact, normal color. Absent: rash, cyanosis, diaphoretic, erythema, petechiae, pallor, mottled Course Vital Signs 10/28/16 10/28/16 10/29/16 22:35 23:00 00:30 Temperature 98.2 F Pulse Rate 82 78 76 Respiratory 18 18 18 Rate Blood Pressure 140/69 145/68 124/68 O2 Sat by Pulse 96 100 96 Oximetry 10/29/16 01:14 Temperature Pulse Rate 105 H Respiratory 18 Rate Blood Pressure 136/80 O2 Sat by Pulse 99 Oximetry Disposition Clinical Impression: Chest pain, Hypomagnesemia Disposition: ADMITTED IP TO THIS HOSP Condition: Fair Referrals: Harvey Wesley MD [Primary Care Provider] - 1-2 days
[2016-10-28 23:09] LABS: Basophils # (A) 0.1 k/uL (0-0.2); Basophils % (A) 1 %; CHCM 30.9; Eosinophils # (A) 0.1 k/uL (0-0.7); Eosinophils % (A) 1 %; HCT 30.1 % (34.0-46.0); HDW 2.44; HGB 9.6 gm/dL (11.4-16.0); Hypochromasia Slight; Luc # (Auto) 0.16; Luc % (Auto) 3; Lymphocytes # (A) 1.9 k/uL (1.0-4.8); Lymphocytes % (A) 34 %; MCH 27.1 pg (25.0-35.0); MCHC 32.1 g/dL (31.0-37.0); MCV 84.5 fL (80.0-100.0); Monocytes # (A) 0.2 k/uL (0-1.0); Monocytes % (A) 4 %; Neutrophils # (A) 3.2 k/uL (1.3-7.7); Neutrophils % (A) 58 %; RBC 3.56 m/uL (3.80-5.40); RDW 13.8 % (11.5-15.5); WBC 5.5 k/uL (3.8-10.6); WBC (Perox) 5.72
[2016-10-28 23:18] LABS: ALT 27 U/L (9-52); AST 18 U/L (14-36); Alkaline Phosphatase 63 U/L (38-126); Amylase 48 U/L (30-110); Anion Gap 9 mmol/L; Blood Urea Nitrogen 20 mg/dL (7-17); Calcium 8.7 mg/dL (8.4-10.2); Carbon Dioxide 22 mmol/L (22-30); Chloride 106 mmol/L (98-107); Glucose 105 mg/dL (74-99); Magnesium 1.1 mg/dL (1.6-2.3); Non-African American GFR(MDRD) >60 (>60 ml/min/1.73 sqM); Potassium 3.7 mmol/L (3.5-5.1); Sodium 137 mmol/L (137-145); Total Bilirubin 0.3 mg/dL (0.2-1.3); Total Protein 5.5 g/dL (6.3-8.2)
[2016-10-28 23:23] LABS: INR 1.1 (<1.2); Partial Thromboplastin Time 24.9 sec (22.0-30.0); Prothrombin Time 10.9 sec (9.0-12.0)
--- NOTE | 2016-10-29 00:16 | XR ---
EXAM: XR Chest, 2 Views CLINICAL HISTORY: Reason: Chest Pain TECHNIQUE: Frontal and lateral views of the chest. COMPARISON: Radiographs of the chest dated 05/24/2016 FINDINGS: Lungs: Chronic mild interstitial lung markings are again seen. No consolidation. Pleural space: Unremarkable. No pneumothorax. Heart: Unremarkable. No cardiomegaly. Mediastinum: Prominence of the right paratracheal soft tissues is again seen and is likely vascular rather than related to adenopathy. Bones/joints: Osteopenia is suggested. Multilevel degenerative changes are seen throughout the thoracic spine. The mid thoracic vertebral bodies appear somewhat wedge-shaped suggesting mild anterior partial compression fractures. Degenerative changes are also seen involving both shoulders. Vasculature: Atherosclerotic vascular calcifications involving the aortic arch. The descending thoracic aorta is mildly tortuous. Other findings: No significant interval change is appreciated. IMPRESSION: No acute findings. Other findings, as above.
[2016-10-29] MEDS ORDERED: MAGNESIUM SULFATE-D5W PMX 1 GM in DEXTROSE/WATER 1 100ML.BAG IVPB ONE ×2 (00:35→12:00)
[2016-10-29] MEDS ORDERED: ENOXAPARIN 60 MG/0.6 ML SYRINGE SQ STA (01:06)
[2016-10-29] MEDS ORDERED: NITROGLYCERIN SL TABS 0.4 MG TAB SUBLINGUAL PRN (01:33)
[2016-10-29] MEDS ORDERED: HYDROcodone/APAP 10-325MG 1 EACH TAB PO PRN ×2 (01:36→10:14)
[2016-10-29] MEDS ORDERED: DIPHENOX-ATROP 2.5-0.025 MG 1 EACH TAB PO PRN (01:36)
[2016-10-29] MEDS ORDERED: ALPRAZolam 0.5 MG TAB PO STA (01:37)
[2016-10-29] MEDS: TEMAZEPAM 30 MG CAP PO PRN ×2 (03:07→22:01)
[2016-10-29] MEDS: metFORMIN 500 MG TAB PO SCH ×2 (06:28→17:56)
[2016-10-29] MEDS: PANTOPRAZOLE 40 MG TABLET PO SCH (06:28)
[2016-10-29 06:38] LABS: Glucose,Whole Blood 140 mg/dL (75-99)
[2016-10-29 07:19] LABS: Creatine Kinase <20 U/L (30-135)
[2016-10-29 07:32] LABS: Creatine Kinase MB 0.3 ng/mL (0.0-2.4); Troponin I 0.026 ng/mL (0.000-0.034)
--- NOTE | 2016-10-29 08:08 | NM ---
EXAMINATION TYPE: NM pul vent and perfuse DATE OF EXAM: 10/29/2016 COMPARISON: Chest x-ray from yesterday. HISTORY: Shortness of breath rule out pulmonary embolism TECHNIQUE: Utilizing inhalation of 71.4 mCi Tc 99m DTPA aerosol and intravenous injection of 5.5 mCi of Tc 99m MAA, ventilation and perfusion images are acquired post injection in multiple projections. FINDINGS: Normal radiotracer distribution is noted in the lungs. There is no evidence of mismatched defects. IMPRESSION: Low probability for pulmonary embolism.
[2016-10-29] MEDS: ALPRAZolam 0.5 MG TAB PO PRN ×2 (08:56→22:00)
[2016-10-29] MEDS: ASPIRIN 81 MG CHEW PO SCH (08:57)
[2016-10-29] MEDS: LISINOPRIL 10 MG TAB PO SCH (08:57)
[2016-10-29] MEDS: MELOXICAM 7.5 MG TAB PO SCH (08:57)
[2016-10-29] MEDS: MAGNESIUM OXIDE 400 MG TAB PO SCH (08:57)
[2016-10-29] MEDS: HYDROCHLOROTHIAZIDE 12.5 MG CAP PO SCH (08:57)
[2016-10-29] MEDS: GABAPENTIN 300 MG CAP PO SCH ×2 (08:57→20:15)
[2016-10-29] MEDS ORDERED: ENOXAPARIN 60 MG/0.6 ML SYRINGE SQ SCH (09:00)
--- NOTE | 2016-10-29 10:14 | P.HPIM ---
History of Present Illness H&P Date: 10/29/16 Chief Complaint: Chest pain, shortness of breath, Scutt, hyperlipidemia, intractable lower b 80-year-old female one of Dr. Harvey Wesley's patient with past medical history of chronic back pain diabetes hypertension hyperlipidemia who presented to the emergency department at [facility] late at night complaining of significant left-sided chest pain with significant shortness of breath with minimum exertion symptoms become slightly bit worse radiating to the left shoulder area with her significant shortness of breath with above symptoms CK with troponin came back negative she had positive d-dimer EKG didn' t show any major abnormality or change patient was hospitalized for atypical angina and atypical chest pain she is ALLERGIC to IV dye could not do CTA patient will be going for VQ scan see cardiology and if possible echo and stress test exclude any possibility of cardiac disease. Review of Systems Constitutional: Reports anorexia, Reports chronic headaches, Reports chronic pain, Reports fatigue, Reports lethargy, Reports malaise, Reports poor appetite , Reports weakness, Reports weight loss, Denies as per HPI, Denies chills, Denies daytime sleepiness, Denies fever, Denies night sweats, Denies sweats, Denies weight gain Eyes: bilateral as per HPI Ears: bilateral: decreased hearing Ears, nose, mouth and throat: Reports nasal congestion, Denies as per HPI, Denies ant. neck pain, Denies bleeding gums, Denies dental pain, Denies dysphagia, Denies epistaxis, Denies headache, Denies hoarseness, Denies mouth pain, Denies nasal discharge, Denies neck fullness/pressure, Denies neck lump, Denies nose pain, Denies odynophagia, Denies post-nasal drip, Denies sinus pain , Denies sinus pressure, Denies swelling in mouth, Denies swelling in throat, Denies sore throat, Denies vertigo, Denies voice changes Cardiovascular: Reports chest pain, Reports dyspnea on exertion, Reports edema, Reports high blood pressure, Reports irregular heart beat, Reports lightheadedness, Reports orthopnea, Reports palpitations, Reports paroxysmal nocturnal dyspnea, Reports phlebitis, Reports rapid heart beat, Denies as per HPI, Denies claudication, Denies decreased exercise tolerance, Denies leg edema , Denies shortness of breath, Denies syncope Respiratory: Reports congestion, Reports cough, Reports dyspnea, Reports pain on inspiration, Denies as per HPI, Denies cough with sputum, Denies excessive sputum, Denies hemoptysis, Denies home oxygen, Denies pain, Denies pleurisy, Denies respiratory infections, Denies sleep apnea, Denies snoring, Denies wheezing Gastrointestinal: Reports abdominal pain, Reports dyspepsia, Reports early satiety, Reports indigestion, Reports nausea, Denies as per HPI, Denies belching , Denies bloating, Denies BRBPR, Denies change in bowel habits, Denies coffee ground emesis, Denies constipation, Denies diarrhea, Denies excessive gas, Denies heartburn, Denies hematemesis, Denies hematochezia, Denies jaundice, Denies lactose intolerance, Denies loss of appetite, Denies melena, Denies vomiting Genitourinary: Reports urgency, Denies as per HPI, Denies abnormal vaginal bleeding, Denies decreased libido, Denies difficulty conceiving, Denies difficulty voiding, Denies dysmenorrhea, Denies dyspareunia, Denies dysuria, Denies flank pain, Denies genital sores, Denies hematuria, Denies hot flashes, Denies incomplete emptying, Denies kidney stones, Denies menorrhagia, Denies mixed incontinence, Denies nocturia, Denies pelvic pain, Denies post void dribbling, Denies , Denies prolapse symptoms, Denies stress incontinence , Denies urge incontinence, Denies urinary frequency, Denies vaginal discharge, Denies vaginal dryness, Denies vaginal itching, Denies vaginal odor Musculoskeletal: Reports gait dysfunction, Reports limitation of motion, Reports myalgias, Reports neck pain, Denies as per HPI, Denies arm numbness/ tingling, Denies atrophy, Denies fractures, Denies frequent falls, Denies hot joints, Denies leg numbness/tingling, Denies loss of height, Denies low back pain, Denies morning stiffness, Denies muscle cramps, Denies muscle weakness, Denies neck stiffness, Denies prior amputations, Denies redness of joints, Denies shooting arm pain, Denies shooting leg pain Integumentary: Denies as per HPI, Denies acne, Denies boils, Denies brittle nails, Denies change in hair/nails, Denies color changes, Denies darkening of skin, Denies depigmentation, Denies dryness, Denies foot/leg ulcers, Denies growths, Denies hirsutism, Denies lesions, Denies onychomycosis, Denies pruritus , Denies rash, Denies sores, Denies striae, Denies unusual bruising, Denies wounds Neurological: Reports gait dysfunction, Reports numbness, Reports paresthesias, Reports tingling, Reports weakness, Denies as per HPI, Denies aphasia, Denies ataxia, Denies balance difficulties, Denies burning pain, Denies change in mentation, Denies change in smell/taste, Denies change in speech, Denies confusion, Denies convulsions, Denies double vision, Denies head injury, Denies headaches, Denies hearing difficulties, Denies lack of coordination, Denies loss of vision, Denies memory loss, Denies migraines, Denies motor disturbance, Denies paralysis, Denies seizures, Denies sensory deficit, Denies spasticity, Denies syncope, Denies tic, Denies transient paralysis, Denies tremors, Denies vertigo, Denies visual changes Psychiatric: Reports anhedonia, Reports anxiety, Reports depression, Reports sadness/tearfulness, Denies as per HPI, Denies anxiety attacks, Denies change in appetite, Denies change in libido, Denies change in sleep habits, Denies confusion, Denies difficulty concentrating, Denies disorientation, Denies hallucinations, Denies hopelessness, Denies hypersomnia, Denies insomnia, Denies irritability, Denies memory loss, Denies mood swings, Denies paranoia, Denies sleep disturbances, Denies suicidal ideation Endocrine: Reports fatigue, Reports heat intolerance, Denies as per HPI, Denies cold intolerance, Denies deepening of the voice, Denies excessive sweating, Denies excessive thirst, Denies flushing, Denies high blood sugars, Denies increase in ring/shoe/hat size, Denies low blood sugars, Denies nocturia, Denies palpitations, Denies polydipsia, Denies polyphagia, Denies polyuria, Denies proptosis, Denies recent glucocorticoid use, Denies thyroid mass, Denies weight change Hematologic/Lymphatic: Reports easy bruising, Denies as per HPI, Denies easy bleeding, Denies lymphadenopathy, Denies lymphedema, Denies thrombophilia Allergic/Immunologic: Reports allergic rhinitis, Denies as per HPI, Denies anaphylaxis, Denies angioedema, Denies gluten intolerance, Denies persistent infections, Denies seasonal allergies, Denies urticaria, Denies wheezing Past Medical History Past Medical History: Diabetes Mellitus, GERD/Reflux, Hyperlipidemia, Hypertension Additional Past Medical History / Comment(s): back pain, arthritis History of Any Multi-Drug Resistant Organisms: None Reported Past Surgical History: Appendectomy, Back Surgery, Breast Surgery, Joint Replacement, Tonsillectomy Additional Past Surgical History / Comment(s): bilateral knee sx Past Anesthesia/Blood Transfusion Reactions: No Reported Reaction Past Psychological History: Anxiety, Depression Smoking Status: Former smoker Past Alcohol Use History: None Reported Past Drug Use History: None Reported - Past Family History Father Family Medical History: Myocardial Infarction ([place]) Medications and Allergies Home Medications Medication Instructions Recorded Confirmed Type ALPRAZolam [Xanax] 1 mg PO TID 02/04/16 10/29/16 History Aspirin 81 mg PO DAILY 02/04/16 10/29/16 History Diphenox-Atrop 2.5-0.025 mg 2 tab PO TID PRN 02/04/16 10/29/16 History [Lomotil] Enalapril/Hydrochlorothiazide 1 tab PO DAILY 02/04/16 10/29/16 History [Vaseretic 5-12.5 mg] Omeprazole 20 mg PO DAILY 02/04/16 10/29/16 History Temazepam [Restoril] 30 mg PO HS PRN 02/04/16 10/29/16 History Celecoxib [CeleBREX] 200 mg PO BID 05/21/16 10/28/16 History metFORMIN HCL 1,000 mg PO BID 05/21/16 10/29/16 History Gabapentin [Neurontin] 300 mg PO BID 05/29/16 10/28/16 History Citalopram Hydrobromide [CeleXA] 40 mg PO DAILY 10/29/16 10/29/16 History HYDROcodone/APAP 10-325MG [[place] 1 tab PO Q6H PRN 10/29/16 10/29/16 History 10-325] fentaNYL 50MCG/HR PATCH [Duragesic 1 patch TRANSDERM Q72H 10/29/16 10/29/16 History 50MCG/HR] Allergies Allergy/AdvReac Type Severity Reaction Status Date / Time Iodine and Iodide Containing Allergy Rash/Hives Verified 10/29/16 07:36 Produc Tetanus Vaccines and Toxoid Allergy Swelling Verified 10/29/16 07:36 [Tetanus Vaccines & Toxoid] morphine AdvReac Nausea & Verified 10/29/16 07:36 Vomiting Physical Exam Vitals: Vital Signs Temp Pulse Pulse Resp BP BP Pulse Ox 10/29/16 05:35 74 18 154/73 98 10/29/16 04:00 18 10/29/16 02:17 97.7 F 104 H 18 143/79 98 10/29/16 01:48 97.6 F 81 18 129/63 97 10/29/16 01:14 105 H 18 136/80 99 10/29/16 00:30 76 18 124/68 96 10/28/16 23:00 78 18 145/68 100 10/28/16 22:35 98.2 F 82 18 140/69 96 Intake and Output 10/28/16 10/29/16 10/29/16 22:59 06:59 14:59 Intake Total 100 Balance 100 Intake: Intake, IV Titration 100 Amount Magnesium Sulfate-D5w Pmx 100 1 gm In Dextrose/Water 1 100ml.bag @ 100 mls/hr IVPB ONCE ONE Rx#: [id number] Other: # Voids 1 Weight 54.885 kg 57.2 kg - Constitutional General appearance: no average body habitus, cooperative, disheveled, no mild distress, no morbidly obese, no acute distress, no obese, no severe distress, thin - EENT Eyes: no abnormal pupil, no anicteric sclerae, no disc margins sharp, no edentulous, no EOMI, no PERRLA, no fundus normal, no photophobia, no dentition normal, no poor dentition, no ptosis, no scleral icterus, normal appearance ENT: no hard of hearing, no hearing grossly normal, no NA/AT, normal oropharynx , no other, no pharyngeal erythema, no thrush, no tonsillar exudates, no tonsillar swelling Ears: bilateral: normal - Neck Neck: normal ROM Carotids: bilateral: upstroke normal Thyroid: bilateral: normal size - Respiratory Respiratory: bilateral: CTA, diminished - Cardiovascular Rhythm: regular Heart sounds: normal: S1, S2 Abnormal Heart Sounds: systolic murmur - Gastrointestinal General gastrointestinal: no absent bowel sounds, no decreased bowel sounds, no distended, no hepatomegaly, no hyperactive bowel sounds, normal bowel sounds, no organomegaly, no rigid, no scaphoid, soft, no splenomegaly, no tenderness, no umbilical hernia, no ventral hernia - Integumentary Integumentary: no calor, no cellulitis, no cyanotic, no decreased turgor, no flushed, no jaundiced, normal, no normal turgor, pale, rash, no ulcer - Neurologic Neurologic: CNII-XII intact - Musculoskeletal Musculoskeletal: gait normal, generalized weakness, strength equal bilaterally, no right sided weakness, no left sided weakness - Psychiatric Psychiatric: A&O x's 3, appropriate affect Results CBC & Chem 7: 10/28/16 22:55 10/28/16 22:55 Labs: Abnormal Lab Results - Last 24 Hours (Table) 10/28/16 10/28/16 10/28/16 Range/Units 22:55 22:55 22:55 RBC 3.56 L (3.80-5.40) m/uL Hgb 9.6 L (11.4-16.0) gm/dL Hct 30.1 L (34.0-46.0) % D-Dimer 1.31 H (<0.60) mg/L FEU BUN 20 H (7-17) mg/dL Glucose 105 H (74-99) mg/dL POC Glucose (mg/dL) (75-99) mg/dL Magnesium 1.1 L (1.6-2.3) mg/dL Total Creatine Kinase (30-135) U/L Total Protein 5.5 L (6.3-8.2) g/dL Albumin 3.4 L (3.5-5.0) g/dL 10/29/16 10/29/16 Range/Units 05:47 06:21 RBC (3.80-5.40) m/uL Hgb (11.4-16.0) gm/dL Hct (34.0-46.0) % D-Dimer (<0.60) mg/L FEU BUN (7-17) mg/dL Glucose (74-99) mg/dL POC Glucose (mg/dL) 140 H (75-99) mg/dL Magnesium (1.6-2.3) mg/dL Total Creatine Kinase <20 L (30-135) U/L Total Protein (6.3-8.2) g/dL Albumin (3.5-5.0) g/dL Thrombosis Risk Factor Assmnt - DVT/VTE Prophylaxis DVT/VTE Prophylaxis: Pharmacologic Prophylaxis ordered, Mechanical Prophylaxis ordered - Choose All That Apply Any of the Below Risk Factors Present?: Yes Each Risk Factor Represents 3 Points: Age 75 years or older Thrombosis Risk Factor Assessment Total Risk Factor Score: 3 Thrombosis Risk Factor Assessment Level: Moderate Risk Assessment and Plan Plan: 1 chest pain: Atypical with significant risk factor involve, with patient's current symptom VQ scan to be performed patient will be seeing cardiology echo and possible noninvasive stress test to be done if they're all negative patient can be discharged home on medication if any abnormality might need to go for heart cath which will be extremely difficult especially with her iodine ALLERGY but can do the prep for this needed. 2 severe shortness of breath with elevated d-dimer: Cannot go for CTA patient will be going for VQ scan in the meanwhile continue Lovenox 1 mg/kg twice a day till the test is completed. 3 hypertension: Has been doing well on Vaseretic resume medication and if can't tolerate smaller dose of beta nya. 4 hyperlipidemia: Has been on diet control only. 5 type 2 diabetes on oral hypoglycemic agent: Continue patient on metformin 1000 mg twice a day Accu-Chek with sliding scales coverage titrate medication if needed. 6 severe GERD: Patient has been on omeprazole 20 mg daily continue medication. 7 chronic lower back pain with severe neuropathy: Patient had back surgery with Dr. ortiz off this past year still on fentanyl and [place] as needed for pain. 8 chronic depression and anxiety attacks: Continue citalopram and Xanax continue Xanax on twice a day basis and on as needed as well. 9 GI prophylaxis: Continue patient on omeprazole. 10 DVT prophylaxis: Patient was on Lovenox early mobilization and knee-high RAQUEL hose will be done. CODE STATUS: DO NOT RESUSCITATE. Expectation from this admission: Patient be in the hospital for 1-2 nights.
[2016-10-29] MEDS ORDERED: diphenhydrAMINE 25 MG CAP PO STA (11:25)
[2016-10-29] MEDS ORDERED: FAMOTIDINE 20 MG TAB PO STA (11:25)
[2016-10-29] MEDS ORDERED: methylPREDNISolone SOD SUCCI 125 MG/2 ML VIAL IV STA ×2 (11:25→11:45)
[2016-10-29] MEDS ORDERED: predniSONE 20 MG TAB PO STA (11:26)
[2016-10-29 11:38] LABS: Glucose,Whole Blood 93 mg/dL (75-99)
[2016-10-29 11:39] LABS: Creatine Kinase <20 U/L (30-135)
[2016-10-29] MEDS ORDERED: RX INFO: IV CONTRAST WAS GIVEN 1 EACH MISC MISCELLANE PRN (11:43)
[2016-10-29] MEDS ORDERED: diphenhydrAMINE 50 MG CAP PO STA (11:45)
[2016-10-29 11:51] LABS: Creatine Kinase MB 0.3 ng/mL (0.0-2.4); Troponin I 0.029 ng/mL (0.000-0.034)
[2016-10-29] MEDS: SODIUM CHLORIDE 0.9% 1,000 ML IV SCH (12:49)
[2016-10-29] MEDS: INSULIN LISPRO (humaLOG) 300 UNIT/3 ML VIAL SQ SCH ×3 (12:53→21:00)
--- NOTE | 2016-10-29 14:26 | CT ---
EXAMINATION TYPE: CT angio chest DATE OF EXAM: 10/29/2016 2:11 PM COMPARISON: NONE HISTORY: Chest pain. CT DLP: 231.4 mGycm Automated exposure control for dose reduction was used. CONTRAST: CTA scan of the thorax is performed with IV Contrast, patient injected with 70 mL of Omnipaque 350, p ulmonary embolism protocol. . FINDINGS: There are 3-D post processed images. Thoracic aorta is atheromatous. There is no evidence of aortic dissection or aneurysm. There is a gene y small pericardial effusion. I see no filling defects in the pulmonary arteries. There is no pleural effusion. There is no evidenc e of a pulmonary mass. There is mild coarsening of interstitial pulmonary markings. There is no adren al mass. Ascending aorta measures 3.2 cm. IMPRESSION: NO EVIDENCE OF PULMONARY EMBOLISM. NO EVIDENCE OF AORTIC ANEURYSM OR DISSECTION. ATHEROSCLEROTIC VASCULAR DISEASE. VERY SMALL PERICARDIAL EFFUSION.
--- NOTE | 2016-10-29 14:56 | US ---
EXAMINATION TYPE: US venous doppler duplex LE BI DATE OF EXAM: 10/29/2016 2:42 PM COMPARISON: NONE CLINICAL HISTORY: R/O DVT. SIDE PERFORMED: Bilateral TECHNIQUE: The lower extremity deep venous system is examined utilizing real time linear array sonog denton with graded compression, doppler sonography and color-flow sonography. VESSELS IMAGED: External Iliac Vein (EIV) Common Femoral Vein Deep Femoral Vein Greater Saphenous Vein * Femoral Vein Popliteal Vein Small Saphenous Vein * Proximal Calf Veins (* superficial vessels) Right Leg: Negative for DVT Left Leg: Negative for DVT IMPRESSION: Negative exam. No evidence of deep venous thrombosis in the left and right leg.
[2016-10-29] MEDS: METOPROLOL TARTRATE 12.5 MG TAB PO SCH ×2 (15:43→20:14)
--- NOTE | 2016-10-29 16:45 | CONS ---
This is a 80-year-old lady with a known history of hypertension, hypercholesterolemia; also, has gastroesophageal reflux disease. She came into the hospital with complaints of having chest pressure. She also has type 2 diabetes mellitus as well. She presented with discomfort in the chest raising the possibility of angina. Pain occurred while she was at rest. She became very anxious and she thinks there is a component of anxiety as well. She had some associated nausea but no tj emesis. She also had a pleuritic component to the pain, then anxiety set in and she felt very stressed and came into the hospital. Quality of the pain certainly raises concerns with angina but there is a pleuritic component as well. After arrival she feels better. A V/Q scan was performed which revealed a low probability. The patient carries a dye allergy. However, the D-dimer is elevated. Troponins are normal. She is resting comfortably but when asked to take a deep breath she does have pleuritic chest pain. Even though she has a contrast allergy I am recommending that we will pretreat her with Benadryl and prednisone and proceed with the CT angiography and also venous Doppler and echocardiogram. Based on these findings I will then make further recommendations. She had a low magnesium level which has also been supplemented. At the time of my examination she is resting comfortably. PAST MEDICAL HISTORY: 1. Type 2 diabetes. 2. Hypertension. 3. Hyperlipidemia. 4. Anxiety disorder. MEDICATIONS AT HOME: Include Xanax, aspirin, metformin, enalapril/ hydrochlorothiazide combination, fentanyl patch, Restoril, Celebrex, omeprazole for reflux disease. ALLERGIES: IODINE, MORPHINE, TETANUS TOXOID. On examination, blood pressure is 148/70, pulse rate 70 per minute and regular. HEENT: Unremarkable. Fundus was not examined by me. NECK: Supple. No JVD. I do not hear a carotid bruit. There is no thyromegaly. HEART: Reveals S1/S2 without significant rub, murmur or gallop. LUNGS: Clear. ABDOMEN: Soft, nontender. LOWER EXTREMITIES: Reveal normal pulses. No edema. CENTRAL NERVOUS SYSTEM: Normal. EKG revealed sinus mechanism, no acute changes. Laboratory data suggested the troponins are normal. D-dimer was elevated to 1.31. Magnesium apparently was low and this has been supplemented already. IMPRESSION: 1. Chest pain syndrome with elevated D-dimer, normal troponin. Cannot exclude pulmonary embolism. 2. Presentation is somewhat atypical for angina with normal troponins but given risk factors, this is also a consideration. 3. Type 2 diabetes mellitus. 4. Hypertension. 5. Hyperlipidemia. RECOMMENDATIONS: I am recommending that we will continue the Lovenox that she already received. I will start her on a beta nya, perform echocardiogram, will hydrate her and pretreat her for contrast allergy and proceed with CT angiography. Magnesium also will be supplemented additionally. I discussed my thoughts in detail with the patient. We will continue the Lovenox that was ordered if the CT angio comes abnormal. Otherwise, we will decrease the dose to a DVT prophylaxis dose. I will await the results of the CT angio then make further recommendations which may include a stress test. Thank you very much for the consult. EVELIO
[2016-10-29 17:03] LABS: Glucose,Whole Blood 220 mg/dL (75-99)
[2016-10-29] MEDS: HEPARIN SODIUM,PORCINE 5,000 UNIT/ML 1 ML VIAL SQ SCH ×2 (17:55→23:13)
[2016-10-29 20:47] LABS: Glucose,Whole Blood 262 mg/dL (75-99)
[2016-10-30] MEDS: SODIUM CHLORIDE 0.9% 1,000 ML IV SCH (01:39)
[2016-10-30 05:52] LABS: Glucose,Whole Blood 163 mg/dL (75-99)
[2016-10-30] MEDS: INSULIN LISPRO (humaLOG) 300 UNIT/3 ML VIAL SQ SCH (06:21)
[2016-10-30] MEDS: PANTOPRAZOLE 40 MG TABLET PO SCH (06:21)
[2016-10-30 06:40] LABS: Basophils % (A) 0 %; CH 26.5; CHCM 30.3; Eosinophils % (A) 0 %; HCT 29.6 % (34.0-46.0); HDW 2.26; HGB 9.1 gm/dL (11.4-16.0); Hypochromasia Moderate; Luc # (Auto) 0.15; Luc % (Auto) 3; Lymphocytes # (A) 1.6 k/uL (1.0-4.8); Lymphocytes % (A) 35 %; MCH 27.1 pg (25.0-35.0); MCHC 30.8 g/dL (31.0-37.0); Mean Platelet Volume 8.7; Monocytes # (A) 0.2 k/uL (0-1.0); Monocytes % (A) 4 %; Neutrophils # (A) 2.6 k/uL (1.3-7.7); Neutrophils % (A) 57 %; RBC 3.37 m/uL (3.80-5.40); RDW 14.3 % (11.5-15.5); WBC 4.6 k/uL (3.8-10.6); WBC (Perox) 5.01
[2016-10-30 06:50] LABS: ALT 29 U/L (9-52); AST 16 U/L (14-36); Alkaline Phosphatase 51 U/L (38-126); Anion Gap 5 mmol/L; Blood Urea Nitrogen 16 mg/dL (7-17); Calcium 9.1 mg/dL (8.4-10.2); Carbon Dioxide 26 mmol/L (22-30); Chloride 103 mmol/L (98-107); Cholesterol 166 mg/dL (<200); Glucose 148 mg/dL (74-99); HDL Cholesterol 50 mg/dL (40-60); Magnesium 1.7 mg/dL (1.6-2.3); Non-African American GFR(MDRD) >60 (>60 ml/min/1.73 sqM); Potassium 4.5 mmol/L (3.5-5.1); Sodium 134 mmol/L (137-145); Total Bilirubin 0.3 mg/dL (0.2-1.3); Total Protein 5.2 g/dL (6.3-8.2); Triglycerides 109 mg/dL (<150)
[2016-10-30 08:40] VITALS: BP 131/62; PULSE 61; TEMP 98.5
[2016-10-30] MEDS: METOPROLOL TARTRATE 12.5 MG TAB PO SCH (08:44)
[2016-10-30] MEDS: MELOXICAM 7.5 MG TAB PO SCH (08:44)
[2016-10-30] MEDS: HEPARIN SODIUM,PORCINE 5,000 UNIT/ML 1 ML VIAL SQ SCH (08:45)
[2016-10-30] MEDS: HYDROCHLOROTHIAZIDE 12.5 MG CAP PO SCH (08:45)
[2016-10-30] MEDS: GABAPENTIN 300 MG CAP PO SCH (08:45)
[2016-10-30] MEDS: MAGNESIUM OXIDE 400 MG TAB PO SCH (08:45)
[2016-10-30] MEDS: LISINOPRIL 10 MG TAB PO SCH (08:45)
[2016-10-30] MEDS: ASPIRIN 81 MG CHEW PO SCH (08:45)
[2016-10-30] MEDS ORDERED: CITALOPRAM HYDROBROMIDE 20 MG TAB PO SCH (09:00)
[2016-10-30] MEDS ORDERED: ASPIRIN 325 MG TAB PO SCH (09:00)
[2016-10-30 09:37] VITALS: BMI 25.4
--- NOTE | 2016-10-30 10:23 | ECHOF ---
Referral Reason:lvfunction MEASUREMENTS -------- HEIGHT: 152.4 cm WEIGHT: 59.0 kg BP: 124/69 RVIDd: 2.5 cm (< 3.3) IVSd: 0.9 cm (0.6 - 1.1) LVIDd: 4.2 cm (3.9 - 5.3) LVPWd: 1.2 cm (0.6 - 1.1) IVSs: 1.4 cm LVIDs: 2.8 cm LVPWs: 1.3 cm LAESV Index (A-L): 36.06 ml/m Ao Diam: 3.2 cm (2.0 - 3.7) AV Cusp: 2.0 cm (1.5 - 2.6) LA Diam: 3.5 cm (2.7 - 3.8) MV EXCURSION: 23.601 mm (> 18.000) MV EF SLOPE: 69 mm/s (70 - 150) EPSS: 0.3 cm MV E Nacho: 0.95 m/s MV DecT: 185 ms MV A Nacho: 0.84 m/s MV E/A Ratio: 1.14 RAP: 5.00 mmHg RVSP: 36.66 mmHg FINDINGS -------- Sinus rhythm. This was a technically good study. LV size, wall thickness and systolic function are normal, with an EF greater than 55%. The right ventricle is normal in size. LA is moderately dilated 34-39 ml/m2 The right atrial size is normal. The aortic valve is trileaflet, and appears structurally normal. No aortic stenosis or regurgitation. The mitral valve leaflets are mildly thickened. Mild mitral regurgitation is present. Moderate tricuspid regurgitation present. There is mild pulmonary hypertension. The right ventricular systolic pressure, as measured by Doppler, is 36.66mmHg. Trace/mild (physiologic) pulmonic regurgitation. The aortic root size is normal. There is no pericardial effusion. CONCLUSIONS -------- 1. Sinus rhythm. 2. Trace/mild (physiologic) pulmonic regurgitation. 3. The aortic root size is normal. 4. There is no pericardial effusion. 5. This was a technically good study. 6. LV size, wall thickness and systolic function are normal, with an EF greater than 55%. 7. LA is moderately dilated 34-39 ml/m2 8. The aortic valve is trileaflet, and appears structurally normal. No aortic stenosis or regurgitation. 9. The mitral valve leaflets are mildly thickened. 10. Mild mitral regurgitation is present. 11. Moderate tricuspid regurgitation present. 12. There is mild pulmonary hypertension. VP: Shila Morales RDCS
[2016-10-30 12:00] LABS: Glucose,Whole Blood 157 mg/dL (75-99)
[2016-10-30] MEDS: ALPRAZolam 0.5 MG TAB PO PRN (12:37)
--- NOTE | 2016-10-30 18:11 | PN ---
This patient is resting comfortably. She has no chest pain or shortness of breath. Her D. dimer was elevated but CT angio did not reveal any evidence of pulmonary embolism. I am recommending that we can do a stress test as an outpatient. She has no further pain. she is ambulating without symptoms. Vital signs are stable. S1, S2 heard normally. Lungs clear. Abdomen and lower extremity exam is unremarkable. She can be discharged today and I will see her in the office in two weeks. EVELIO
--- NOTE | 2016-11-02 14:58 | P.DS ---
Providers Date of admission: 10/29/16 01:38 Expected date of discharge: 10/30/16 Attending physician: Carlos Kan Consults: 10/29/16 06:14 Consult Physician Routine Consulting Provider: [facility] Consult Reason/Comments: Chest Pain Do you want consulting provider notified?: Yes, Notify in am Primary care physician: Harvey Wesley [facility] Course: 80-year-old female one of Dr. Harvey eWsley's patient with past medical history of chronic back pain diabetes hypertension hyperlipidemia who presented to the emergency department at [facility] late at night complaining of significant left-sided chest pain with significant shortness of breath with minimum exertion symptoms become slightly bit worse radiating to the left shoulder area with her significant shortness of breath with above symptoms CK with troponin came back negative she had positive d-dimer EKG didn' t show any major abnormality or change patient was hospitalized for atypical angina and atypical chest pain she is ALLERGIC to IV dye could not do CTA patient will be going for VQ scan see cardiology and if possible echo and stress test exclude any possibility of cardiac disease. 10/30: Patient has been cleared for discharge by cardiology. She has undergone a CT of the chest, VQ scan and bilateral lower extremity ultrasound all negative for DVT/PE. Patient is to undergo a stress test as an outpatient. Only new medication is metformin 2.5 mg twice daily. Recommend adjusting patient's antidepressant medicine as an outpatient or adding an additional agent. Echocardiogram reveals EF greater than 55%, mild mitral regurgitation, moderate tricuspid regurgitation, mild pulmonary hypertension. 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 Roma Omalley nurse practitioner acting as scribe for signing physician. Cc: Dr. Harvey Wesley Patient Condition at Discharge: Good Plan - Discharge Summary New Discharge Prescriptions: New Magnesium Oxide [Mag-Ox] 400 mg PO DAILY tab Metoprolol Tartrate [Lopressor] 12.5 mg PO BID #60 tab Continue Aspirin 81 mg PO DAILY Temazepam [Restoril] 30 mg PO HS PRN PRN Reason: Insomnia Omeprazole 20 mg PO DAILY ALPRAZolam [Xanax] 1 mg PO TID Enalapril/Hydrochlorothiazide [Vaseretic 5-12.5 mg] 1 tab PO DAILY Diphenox-Atrop 2.5-0.025 mg [Lomotil] 2 tab PO TID PRN PRN Reason: Diarrhea Celecoxib [CeleBREX] 200 mg PO BID metFORMIN HCL 1,000 mg PO BID Gabapentin [Neurontin] 300 mg PO BID Citalopram Hydrobromide [CeleXA] 40 mg PO DAILY fentaNYL 50MCG/HR PATCH [Duragesic 50MCG/HR] 1 patch TRANSDERM Q72H HYDROcodone/APAP 10-325MG [[place] 10-325] 1 tab PO Q6H PRN PRN Reason: Severe Pain Discharge Medication List ALPRAZolam [Xanax] 1 mg PO TID 02/04/16 [History] Aspirin 81 mg PO DAILY 02/04/16 [History] Diphenox-Atrop 2.5-0.025 mg [Lomotil] 2 tab PO TID PRN 02/04/16 [History] Enalapril/Hydrochlorothiazide [Vaseretic 5-12.5 mg] 1 tab PO DAILY 02/04/16 [ History] Omeprazole 20 mg PO DAILY 02/04/16 [History] Temazepam [Restoril] 30 mg PO HS PRN 02/04/16 [History] Celecoxib [CeleBREX] 200 mg PO BID 05/21/16 [History] metFORMIN HCL 1,000 mg PO BID 05/21/16 [History] Gabapentin [Neurontin] 300 mg PO BID 05/29/16 [History] Citalopram Hydrobromide [CeleXA] 40 mg PO DAILY 10/29/16 [History] HYDROcodone/APAP 10-325MG [[place] 10-325] 1 tab PO Q6H PRN 10/29/16 [History] fentaNYL 50MCG/HR PATCH [Duragesic 50MCG/HR] 1 patch TRANSDERM Q72H 10/29/16 [ History] Magnesium Oxide [Mag-Ox] 400 mg PO DAILY tab 10/30/16 [Rx] Metoprolol Tartrate [Lopressor] 12.5 mg PO BID #60 tab 10/30/16 [Rx] Follow up Appointment(s)/Referral(s): Kinjal Hess MD [STAFF PHYSICIAN] - 11/17/16 8:15 am Harvey Wesley MD [Primary Care Provider] - 11/02/16 2:00 pm Patient Instructions/Handouts: Chest Pain (DC), Hypomagnesemia (DC) Discharge Disposition: HOME SELF-CARE
== END 2016-10-30 12:41 | disposition home or self-care (01) | DRG 313 ==
LOC: EC 22:32 → 6SEL 10-29 01:38
PROVIDERS: ADMIT Internal Medicine Geriatric Medicine; ATTEND Internal Medicine Geriatric Medicine
DX: R07.9 Chest pain, unspecified (principal); E11.9 Type 2 diabetes mellitus without complications; E83.42 Hypomagnesemia; G62.9 Polyneuropathy, unspecified; E78.5 Hyperlipidemia, unspecified; F32.9 Major depressive disorder, single episode, unspecified; F41.1 Generalized anxiety disorder; G89.29 Other chronic pain; I10 Essential (primary) hypertension; K21.9 Gastro-esophageal reflux disease without esophagitis; M19.90 Unspecified osteoarthritis, unspecified site; M54.5 Low back pain; Z66 Do not resuscitate; Z79.82 Long term (current) use of aspirin; Z79.84 Long term (current) use of oral hypoglycemic drugs; Z79.899 Other long term (current) drug therapy; Z87.891 Personal history of nicotine dependence; Z91.041 Radiographic dye allergy status; Z88.5 Allergy status to narcotic agent; Z88.7 Allergy status to serum and vaccine; Z82.49 Family history of ischemic heart disease and other diseases of the circulatory system
CPT/HCPCS: 36415; 71020; 71275; 78582; 80053; 80061; 82150; 82550; 82553; 83036; 83690; 83735; 84484; 85025; 85379; 85610; 85730; 93005; 93306; 93970; 96365; 96372; 99285

== ENCOUNTER 2017-06-11 22:05 | Emergency (ER) | payer MEDICARE ==
[2017-06-11 22:16] VITALS: BP 170/98; PULSE 80; RESP 18; TEMP 97
[2017-06-11] MEDS ORDERED: ONDANSETRON 4 MG/2 ML VIAL IVP STA (22:21)
[2017-06-11] MEDS ORDERED: SODIUM CHLORIDE 0.9% 1,000 ML IV ONE (22:21)
[2017-06-11] MEDS ORDERED: MORPHINE SULFATE 4 MG/ML SYRINGE IV STA (22:21)
--- NOTE | 2017-06-11 22:26 | ED ---
Fall HPI - General Chief Complaint: Fall Stated Complaint: FALL Time Seen by Provider: 06/11/17 22:06 Source: patient, EMS Mode of arrival: EMS - History of Present Illness Initial Comments: 81 years old female tripped and fell, she hit her head against a hard surface no complaining about the headache and the neck pain she also is complaining about the right wrist pain right knee pain and the right hip pain she did pass out 10 she is in a lot of pain. Denies any chest pain or shortness of breath no abdominal pain no frequency urgency dysuria no symptoms of TIA or CVA. She is able to move her right wrist and she is able to move her fingers. - Related Data Home Medications Medication Instructions Recorded Confirmed Aspirin 81 mg PO DAILY 02/04/16 06/11/17 Diphenox-Atrop 2.5-0.025 mg 2 tab PO TID PRN 02/04/16 06/11/17 [Lomotil] Enalapril/Hydrochlorothiazide 1 tab PO DAILY 02/04/16 06/11/17 [Vaseretic 5-12.5 mg] Omeprazole 20 mg PO DAILY 02/04/16 06/11/17 Celecoxib [CeleBREX] 200 mg PO BID 05/21/16 06/11/17 metFORMIN HCL 1,000 mg PO DAILY 05/21/16 06/11/17 Citalopram Hydrobromide [CeleXA] 40 mg PO DAILY 10/29/16 06/11/17 HYDROcodone/APAP 10-325MG [[place] 1 tab PO Q6H PRN 10/29/16 06/11/17 10-325] fentaNYL 50MCG/HR PATCH [[place] 1 patch TRANSDERM Q72H 10/29/16 06/11/17 50MCG/HR] ALPRAZolam [Xanax] 2 mg PO TID 06/11/17 06/11/17 Previous Rx's Medication Instructions Recorded Magnesium Oxide [Mag-Ox] 400 mg PO DAILY tab 10/30/16 Metoprolol Tartrate [Lopressor] 12.5 mg PO BID #60 tab 10/30/16 Allergies Allergy/AdvReac Type Severity Reaction Status Date / Time Iodine and Iodide Containing Allergy Rash/Hives Verified 06/11/17 23:16 Produc Tetanus Vaccines and Toxoid Allergy Swelling Verified 06/11/17 23:16 [Tetanus Vaccines & Toxoid] morphine AdvReac Nausea & Verified 06/11/17 23:16 Vomiting Review of Systems ROS Statement: Those systems with pertinent positive or pertinent negative responses have been documented in the HPI. ROS Other: All systems not noted in ROS Statement are negative. Past Medical History Past Medical History: Diabetes Mellitus, GERD/Reflux, Hyperlipidemia, Hypertension Additional Past Medical History / Comment(s): back pain, arthritis History of Any Multi-Drug Resistant Organisms: None Reported Past Surgical History: Appendectomy, Back Surgery, Breast Surgery, Joint Replacement, Tonsillectomy Additional Past Surgical History / Comment(s): bilateral knee sx Past Anesthesia/Blood Transfusion Reactions: No Reported Reaction Past Psychological History: Anxiety, Depression Smoking Status: Former smoker Past Alcohol Use History: None Reported Past Drug Use History: None Reported - Past Family History Father Family Medical History: Myocardial Infarction ([place]) General Exam - General Exam Comments Initial Comments: General: The patient is awake and alert, in no distress, and does not appear acutely ill. She is quite anxious Skin: Skin is warm and dry and no rashes or lesions are noted. Notice a hematoma on the right side of the forehead Eye: Pupils are equal, round and reactive to light, extra-ocular movements are intact; there is normal conjunctiva bilaterally. Ears, nose, mouth and throat: There are moist mucous membranes and no oral lesions. Neck: The neck is supple, she is mildly tender at C5 and C6 Cardiovascular: There is a regular rate and rhythm. No murmur, rub or gallop is appreciated. Respiratory: To auscultation bilateral, no wheezing no rhonchi no distress respiratory looney noticed Gastrointestinal: Soft, non-distended, non-tender abdomen without masses or organomegaly noted. There is no rebound or guarding present. Bowel sounds are unremarkable. Back: There is no tenderness to palpation in the midline. There is no obvious deformity. Musculoskeletall right wrist has some deformity, is mild noticed noticed some swelling and some tenderness and decreased range of motion but no neurovascular deficit noticed in the distal right upper extremity she is able to move all her fingers there is no motor deficit or sensory deficit pulses are palpable. Neurological: CN II-XII intact, Cranial nerves III through XII are intact. There are no obvious motor or sensory deficits. Coordination appears grossly intact. Speech is normal. Psychiatric: Cooperative, appropriate mood & affect, normal judgment. Limitations: no limitations Course Vital Signs 06/11/17 22:13 Temperature 97.0 F L Pulse Rate 80 Respiratory 18 Rate Blood Pressure 170/98 O2 Sat by Pulse 99 Oximetry EKG is a sinus rhythm with a first-degree AV block. Ventricular rate is 75 [place] interval is 1218 QRS duration is 88 QT/QTc is 46/453 review cc EKG does not reveal any ST elevation or ST depression Since she fell and hit her head against a hard surface head CT and neck CT was done along with right humerus and right wrist right hip and right knee x-rays were done THOSE X-RAYS WERE UNREMARKABLE EXCEPT THE RIGHT WRIST RIGHT WRIST HAS INTRA-ARTICULAR SLIGHTLY IMPACTED COMMINUTED FRACTURE OF THE DISTAL RADIUS Medical Decision Making - Lab Data Result diagrams: 06/11/17 22:40 06/11/17 22:40 Lab Results 06/11/17 06/11/17 Range/Units 22:40 22:40 WBC 8.3 (3.8-10.6) k/uL RBC 3.74 L (3.80-5.40) m/uL Hgb 9.8 L (11.4-16.0) gm/dL Hct 31.9 L (34.0-46.0) % MCV 85.3 (80.0-100.0) fL MCH 26.2 (25.0-35.0) pg MCHC 30.7 L (31.0-37.0) g/dL RDW 13.5 (11.5-15.5) % Plt Count 162 (150-450) k/uL Neutrophils % 54 % Lymphocytes % 37 % Monocytes % 3 % Eosinophils % 2 % Basophils % 1 % Neutrophils # 4.5 (1.3-7.7) k/uL Lymphocytes # 3.0 (1.0-4.8) k/uL Monocytes # 0.3 (0-1.0) k/uL Eosinophils # 0.2 (0-0.7) k/uL Basophils # 0.1 (0-0.2) k/uL Hypochromasia Slight Sodium 138 (137-145) mmol/L Potassium 3.9 (3.5-5.1) mmol/L Chloride 106 (98-107) mmol/L Carbon Dioxide 23 (22-30) mmol/L Anion Gap 9 mmol/L BUN 28 H (7-17) mg/dL Creatinine 1.10 H (0.52-1.04) mg/dL Est GFR (MDRD) Af Amer 58 (>60 ml/min/1.73 sqM) Est GFR (MDRD) Non-Af 48 (>60 ml/min/1.73 sqM) Glucose 140 H (74-99) mg/dL Calcium 9.0 (8.4-10.2) mg/dL Total Bilirubin 0.2 (0.2-1.3) mg/dL AST 23 (14-36) U/L ALT 22 (9-52) U/L Alkaline Phosphatase 85 (38-126) U/L Total Protein 6.2 L (6.3-8.2) g/dL Albumin 3.6 (3.5-5.0) g/dL Disposition Clinical Impression: Fall, Injury of head, Neck injury Clinical Impression: (Ruled Out): Herniated nucleus pulposus, L3-4 Disposition: HOME SELF-CARE Condition: Good Instructions: Fall Prevention for Older Adults (ED) Additional Instructions: She does wear a fentanyl patch and she also has pain pills and anxiety pills she takes Xanax 2 mg 3 times a day as needed, she also has [place] 10 at home to be uses as needed basis, considering her age and 2 different kinds of narcotics on board along with the benzos I do not want to add another pain meds that we will increase her risk of falls and fractures, she'll be seeing Dr. Taylor, advised the daughter to call Dr. Taylor's office for sick in the morning and set up an appointment, family agreed with the right wrist was splinted in the ER Referrals: Harvey Wesley MD [Primary Care Provider] - 1-2 days Meño Taylor MD [STAFF PHYSICIAN] - 1-2 days
[2017-06-11] MEDS ORDERED: ACETAMINOPHEN IV (For NPO) 1,000 MG in EMPTY BAG 1 BAG IVPB STA (22:45)
[2017-06-11 22:51] LABS: Basophils # (A) 0.1 k/uL (0-0.2); Basophils % (A) 1 %; Eosinophils # (A) 0.2 k/uL (0-0.7); Eosinophils % (A) 2 %; HCT 31.9 % (34.0-46.0); HGB 9.8 gm/dL (11.4-16.0); Hypochromasia Slight; Lymphocytes % (A) 37 %; MCH 26.2 pg (25.0-35.0); MCHC 30.7 g/dL (31.0-37.0); MCV 85.3 fL (80.0-100.0); Mean Platelet Volume 8.1; Monocytes # (A) 0.3 k/uL (0-1.0); Monocytes % (A) 3 %; Neutrophils # (A) 4.5 k/uL (1.3-7.7); Neutrophils % (A) 54 %; Platelet Count 162 k/uL (150-450); RBC 3.74 m/uL (3.80-5.40); RDW 13.5 % (11.5-15.5); WBC 8.3 k/uL (3.8-10.6)
[2017-06-11 22:59] LABS: Albumin 3.6 g/dL (3.5-5.0); Potassium 3.9 mmol/L (3.5-5.1); Total Bilirubin 0.2 mg/dL (0.2-1.3); Total Protein 6.2 g/dL (6.3-8.2)
--- NOTE | 2017-06-11 23:20 | CT ---
EXAMINATION TYPE: CT brain maged almonte DATE OF EXAM: 06/11/2017 COMPARISON: NONE HISTORY: No prior, fall, evaluate for trauma CT DLP: head-1126.50 body-431.30 mGycm Automated exposure control for dose reduction was used. TECHNIQUE: CT scan of the head and cervical spine are performed without contrast. FINDINGS: There is cerebral cortical atrophy. There is no mass effect nor midline shift. There is n o sign of intracranial hemorrhage. The calvarium is intact. There is right frontal scalp hematoma not ed. This measures 1 cm in thickness. Cervical vertebra have normal alignment. There is narrowing of the disc spaces from C4 to C7 with mod erate spurring of the endplates. Posterior elements are intact. There is multilevel mild hypertrophic cervical facet arthropathy. The skull base is intact. There is no evidence of a fracture. IMPRESSION: Cerebral atrophy. No acute intracranial abnormality. Right frontal scalp hematoma. Spondylotic changes in the cervical spine. No fracture seen.
--- NOTE | 2017-06-11 23:26 | XR ---
EXAMINATION TYPE: XR Hip RT and AP Pelvis DATE OF EXAM: 06/11/2017 COMPARISON: NONE HISTORY: Hip pain after a fall TECHNIQUE: A single AP view of the pelvis is obtained. Two views of the right hip are obtained. FINDINGS: Pelvic ring is intact. Proximal right femur and hip joint are intact. There is mild acetabu lar spurring. Sacroiliac joints are intact. There is previous lumbar spine surgery noted. CONCLUSION: No acute abnormality of the pelvis and right hip.
--- NOTE | 2017-06-11 23:27 | XR ---
EXAMINATION TYPE: XR knee complete RT DATE OF EXAM: 06/11/2017 COMPARISON: NONE HISTORY: Pain after falling TECHNIQUE: 3 views FINDINGS: There is a right knee prosthesis. Components appear in anatomic position. I see no fracture . IMPRESSION: No fracture seen.
--- NOTE | 2017-06-11 23:28 | XR ---
EXAMINATION TYPE: XR wrist complete RT DATE OF EXAM: 06/11/2017 COMPARISON: NONE HISTORY: Pain after a fall TECHNIQUE: 4 views FINDINGS: There is impacted transverse fracture of the distal radial metaphysis. This is 1 cm from th e wrist joint. There is no dislocation. There is osteoarthritis at the first carpometacarpal joint. F racture lines extend to the radiocarpal joint. There is comminution. IMPRESSION: Intra-articular slightly impacted comminuted fracture distal radius.
--- NOTE | 2017-06-11 23:47 | XR ---
EXAMINATION TYPE: XR humerus RT DATE OF EXAM: 06/11/2017 COMPARISON: NONE HISTORY: Right-sided pain after falling TECHNIQUE: 2 views FINDINGS: I see no fracture nor dislocation. Shoulder joint and elbow joint appear intact. IMPRESSION: Negative right humerus exam.
[2017-06-12] MEDS ORDERED: ALPRAZolam 0.5 MG TAB PO STA (00:09)
[2017-06-12] MEDS ORDERED: fentaNYL (PF) 50 MCG/ML 2 ML AMP IV PRN (00:10)
== END 2017-06-12 01:00 | disposition home or self-care (01) ==
LOC: EC 22:05
DX: S33.131A Dislocation of L3/L4 lumbar vertebra, initial encounter (principal); S00.83XA Contusion of other part of head, initial encounter; S19.9XXA Unspecified injury of neck, initial encounter; M79.89 Other specified soft tissue disorders; M25.531 Pain in right wrist; M25.561 Pain in right knee; M25.551 Pain in right hip; I10 Essential (primary) hypertension; E11.9 Type 2 diabetes mellitus without complications; K21.9 Gastro-esophageal reflux disease without esophagitis; F32.9 Major depressive disorder, single episode, unspecified; F41.9 Anxiety disorder, unspecified; Z87.891 Personal history of nicotine dependence; Z79.1 Long term (current) use of non-steroidal anti-inflammatories (NSAID); Z79.82 Long term (current) use of aspirin; Z79.84 Long term (current) use of oral hypoglycemic drugs; Z79.891 Long term (current) use of opiate analgesic; Z79.899 Other long term (current) drug therapy; Z88.5 Allergy status to narcotic agent; Z88.7 Allergy status to serum and vaccine; Z91.048 Other nonmedicinal substance allergy status; Z98.890 Other specified postprocedural states; W01.198A Fall on same level from slipping, tripping and stumbling with subsequent striking against other object, initial encounter
CPT/HCPCS: 36415; 93005; 80053; 85025; 73502; 73060; 73110; 73562; 72125; 70450; 99284; 96374; 96375 ×2; 96361 ×2; J2405; J3010; J0131

== ENCOUNTER 2018-04-07 04:58 | Emergency (ER) | payer MEDICARE ==
--- NOTE | 2018-04-07 05:24 | ED ---
Fall HPI - General Chief Complaint: Fall Stated Complaint: Fall Time Seen by Provider: 04/07/18 05:06 Source: patient, EMS Mode of arrival: EMS - History of Present Illness Initial Comments: This patient is an 82-year-old woman who presents to be evaluated after a fall with head injury at home. The patient states that she had been bending over to put a leash on her dog, and then she lost her balance and fell striking her head against the dresser. She does not believe that she lost consciousness. She states that she then had a difficult time getting up. She states that her family persuaded her to come to the hospital to be evaluated. She does complain a little bit headache. She states that her neck and back are not hurting. No chest or abdominal pain no extremity pain she does state that she had a fall in November and had a wrist fracture. MD Complaint: fall -: minutes(s) Fall From: standing When Fall Occurred: just prior to arrival Fall Witnessed: no Place Fall Occurred: home Loss of Consciousness: unsure Prolonged Down Time?: no Symptoms Prior to Fall: none Location: head Severity: mild Quality: dull Context: tripped/slipped Associated Symptoms: headache - Related Data Home Medications Medication Instructions Recorded Confirmed Aspirin 81 mg PO DAILY 02/04/16 06/11/17 Diphenox-Atrop 2.5-0.025 mg 2 tab PO TID PRN 02/04/16 06/11/17 [Lomotil] Enalapril/Hydrochlorothiazide 1 tab PO DAILY 02/04/16 06/11/17 [Vaseretic 5-12.5 mg] Omeprazole 20 mg PO DAILY 02/04/16 06/11/17 Celecoxib [CeleBREX] 200 mg PO BID 05/21/16 06/11/17 metFORMIN HCL 1,000 mg PO DAILY 05/21/16 06/11/17 Citalopram Hydrobromide [CeleXA] 40 mg PO DAILY 10/29/16 06/11/17 HYDROcodone/APAP 10-325MG [[place] 1 tab PO Q6H PRN 10/29/16 06/11/17 10-325] fentaNYL 50MCG/HR PATCH [[place] 1 patch TRANSDERM Q72H 10/29/16 06/11/17 50MCG/HR] ALPRAZolam [Xanax] 2 mg PO TID 06/11/17 06/11/17 Previous Rx's Medication Instructions Recorded Magnesium Oxide [Mag-Ox] 400 mg PO DAILY tab 10/30/16 Metoprolol Tartrate [Lopressor] 12.5 mg PO BID #60 tab 10/30/16 Allergies Allergy/AdvReac Type Severity Reaction Status Date / Time Iodine and Iodide Containing Allergy Rash/Hives Verified 04/07/18 05:08 Produc Tetanus Vaccines and Toxoid Allergy Swelling Verified 04/07/18 05:08 [Tetanus Vaccines & Toxoid] morphine AdvReac Nausea & Verified 04/07/18 05:08 Vomiting Review of Systems ROS Statement: Those systems with pertinent positive or pertinent negative responses have been documented in the HPI. ROS Other: All systems not noted in ROS Statement are negative. Constitutional: Denies: fever, weakness Eyes: Denies: vision change Respiratory: Denies: cough, dyspnea Cardiovascular: Denies: chest pain, palpitations, orthopnea, syncope Gastrointestinal: Denies: abdominal pain, vomiting Musculoskeletal: Denies: back pain Skin: Denies: rash Neurological: Reports: headache. Denies: weakness, numbness, paresthesias, confusion Past Medical History Past Medical History: Diabetes Mellitus, GERD/Reflux, Hyperlipidemia, Hypertension Additional Past Medical History / Comment(s): back pain, arthritis History of Any Multi-Drug Resistant Organisms: None Reported Past Surgical History: Appendectomy, Back Surgery, Breast Surgery, Joint Replacement, Tonsillectomy Additional Past Surgical History / Comment(s): bilateral knee sx Past Anesthesia/Blood Transfusion Reactions: No Reported Reaction Past Psychological History: Anxiety, Depression Smoking Status: Former smoker Past Alcohol Use History: None Reported Past Drug Use History: None Reported - Past Family History Father Family Medical History: Myocardial Infarction ([place]) General Exam Limitations: no limitations General appearance: alert, in no apparent distress Head exam: Present: normocephalic, other (Right frontal contusion. No evident deformity.) Eye exam: Present: normal appearance, PERRL, EOMI. Absent: scleral icterus, conjunctival injection Neck exam: Present: other (Cervical collar). Absent: tenderness Respiratory exam: Present: normal lung sounds bilaterally. Absent: respiratory distress, wheezes, rales, rhonchi, stridor Cardiovascular Exam: Present: regular rate, normal rhythm, normal heart sounds. Absent: systolic murmur, diastolic murmur, rubs, gallop GI/Abdominal exam: Present: soft. Absent: distended, tenderness, guarding, rebound, mass Extremities exam: Present: normal inspection, normal capillary refill. Absent: pedal edema, calf tenderness Back exam: Absent: CVA tenderness (R), CVA tenderness (L), vertebral tenderness Neurological exam: Present: alert, oriented X3. Absent: motor sensory deficit Skin exam: Present: warm, dry, intact, normal color. Absent: rash Course Vital Signs 04/07/18 04/07/18 05:05 06:37 Temperature 99.3 F Pulse Rate 77 75 Respiratory 16 18 Rate Blood Pressure 154/76 162/76 O2 Sat by Pulse 96 96 Oximetry Medical Decision Making - Lab Data Result diagrams: 04/07/18 05:14 04/07/18 05:14 Lab Results 04/07/18 04/07/18 04/07/18 Range/Units 05:14 05:14 05:14 WBC 6.9 (3.8-10.6) k/uL RBC 3.85 (3.80-5.40) m/uL Hgb 9.2 L (11.4-16.0) gm/dL Hct 30.0 L (34.0-46.0) % MCV 78.1 L (80.0-100.0) fL MCH 23.9 L (25.0-35.0) pg MCHC 30.6 L (31.0-37.0) g/dL RDW 15.3 (11.5-15.5) % Plt Count 203 (150-450) k/uL Neutrophils % 56 % Lymphocytes % 34 % Monocytes % 5 % Eosinophils % 2 % Basophils % 1 % Neutrophils # 3.8 (1.3-7.7) k/uL Lymphocytes # 2.3 (1.0-4.8) k/uL Monocytes # 0.3 (0-1.0) k/uL Eosinophils # 0.2 (0-0.7) k/uL Basophils # 0.0 (0-0.2) k/uL Hypochromasia Marked PT (9.0-12.0) sec INR (<1.2) APTT (22.0-30.0) sec Sodium 139 (137-145) mmol/L Potassium 4.0 (3.5-5.1) mmol/L Chloride 106 (98-107) mmol/L Carbon Dioxide 27 (22-30) mmol/L Anion Gap 6 mmol/L BUN 15 (7-17) mg/dL Creatinine 1.25 H (0.52-1.04) mg/dL Est GFR (CKD-EPI)AfAm 47 (>60 ml/min/1.73 sqM) Est GFR (CKD-EPI)NonAf 41 (>60 ml/min/1.73 sqM) Glucose 136 H (74-99) mg/dL Calcium 9.0 (8.4-10.2) mg/dL Total Bilirubin 0.4 (0.2-1.3) mg/dL AST 14 (14-36) U/L ALT 21 (9-52) U/L Alkaline Phosphatase 101 (38-126) U/L Total Creatine Kinase 42 (30-135) U/L CK-MB (CK-2) 0.3 (0.0-2.4) ng/mL CK-MB (CK-2) Rel Index 0.7 Troponin I <0.012 (0.000-0.034) ng/mL Total Protein 6.1 L (6.3-8.2) g/dL Albumin 3.5 (3.5-5.0) g/dL 04/07/18 Range/Units 05:14 WBC (3.8-10.6) k/uL RBC (3.80-5.40) m/uL Hgb (11.4-16.0) gm/dL Hct (34.0-46.0) % MCV (80.0-100.0) fL MCH (25.0-35.0) pg MCHC (31.0-37.0) g/dL RDW (11.5-15.5) % Plt Count (150-450) k/uL Neutrophils % % Lymphocytes % % Monocytes % % Eosinophils % % Basophils % % Neutrophils # (1.3-7.7) k/uL Lymphocytes # (1.0-4.8) k/uL Monocytes # (0-1.0) k/uL Eosinophils # (0-0.7) k/uL Basophils # (0-0.2) k/uL Hypochromasia PT 9.7 (9.0-12.0) sec INR 0.9 (<1.2) APTT 23.6 (22.0-30.0) sec Sodium (137-145) mmol/L Potassium (3.5-5.1) mmol/L Chloride (98-107) mmol/L Carbon Dioxide (22-30) mmol/L Anion Gap mmol/L BUN (7-17) mg/dL Creatinine (0.52-1.04) mg/dL Est GFR (CKD-EPI)AfAm (>60 ml/min/1.73 sqM) Est GFR (CKD-EPI)NonAf (>60 ml/min/1.73 sqM) Glucose (74-99) mg/dL Calcium (8.4-10.2) mg/dL Total Bilirubin (0.2-1.3) mg/dL AST (14-36) U/L ALT (9-52) U/L Alkaline Phosphatase (38-126) U/L Total Creatine Kinase (30-135) U/L CK-MB (CK-2) (0.0-2.4) ng/mL CK-MB (CK-2) Rel Index Troponin I (0.000-0.034) ng/mL Total Protein (6.3-8.2) g/dL Albumin (3.5-5.0) g/dL - EKG Data -: EKG Interpreted by Nv EKG shows normal: sinus rhythm (Rate approximately 80 bpm), axis (Normal), intervals (MA interval is 230 ms, prolonged consistent with a first-degree AV block. QRS duration 86 ms, normal. QTC 470 ms, normal.), QRS complexes (Normal ), ST-T waves (Normal) Rate: normal Disposition Clinical Impression: Fall, Head injury Disposition: HOME SELF-CARE Condition: Good Instructions: Fall Prevention for Older Adults (ED), Head Injury (ED) Is patient prescribed a controlled substance at d/c from ED?: No Referrals: Harvey Wesley MD [Primary Care Provider] - 1-2 days
[2018-04-07 05:33] LABS: Basophils % (A) 1 %; Eosinophils # (A) 0.2 k/uL (0-0.7); Eosinophils % (A) 2 %; HGB 9.2 gm/dL (11.4-16.0); Hypochromasia Marked; Lymphocytes # (A) 2.3 k/uL (1.0-4.8); Lymphocytes % (A) 34 %; MCH 23.9 pg (25.0-35.0); MCHC 30.6 g/dL (31.0-37.0); MCV 78.1 fL (80.0-100.0); Mean Platelet Volume 8.2; Monocytes # (A) 0.3 k/uL (0-1.0); Monocytes % (A) 5 %; Neutrophils # (A) 3.8 k/uL (1.3-7.7); Neutrophils % (A) 56 %; Platelet Count 203 k/uL (150-450); RBC 3.85 m/uL (3.80-5.40); RDW 15.3 % (11.5-15.5); WBC 6.9 k/uL (3.8-10.6)
[2018-04-07 05:43] LABS: Albumin 3.5 g/dL (3.5-5.0); INR 0.9 (<1.2); Partial Thromboplastin Time 23.6 sec (22.0-30.0); Prothrombin Time 9.7 sec (9.0-12.0); Total Bilirubin 0.4 mg/dL (0.2-1.3); Total Protein 6.1 g/dL (6.3-8.2)
[2018-04-07 05:48] LABS: Creatine Kinase 42 U/L (30-135)
--- NOTE | 2018-04-07 05:50 | CT ---
EXAMINATION TYPE: CT brain maged [place]te DATE OF EXAM: 04/07/2018 COMPARISON: 06/11/2017 HISTORY: fall headache. Neck pain. CT DLP: 1351.6 mGycm Automated exposure control for dose reduction was used. TECHNIQUE: CT scan of the head and cervical spine are performed without contrast. FINDINGS: There is cerebral cortical atrophy. There is no mass effect nor midline shift. There is n o sign of intracranial hemorrhage. There is hypodensity in the periventricular white matter. Calvariu m is intact. The cervical vertebra have normal alignment. There is degenerative disc space during from C4 to C7 wi th moderate spurring of the endplates. The posterior elements are intact. Facet joints are intact. Th e skull base is intact. I see no fracture. IMPRESSION: Cerebral atrophy and chronic small vessel ischemia. No acute intracranial abnormality. No change. Spondylotic changes in the cervical spine. No fracture. No change.
[2018-04-07 06:01] LABS: Creatine Kinase MB 0.3 ng/mL (0.0-2.4); Troponin I <0.012 ng/mL (0.000-0.034)
[2018-04-07 06:38] VITALS: RESP 18
[2018-04-07 07:17] VITALS: BP 151/56; PULSE 73; TEMP 98
== END 2018-04-07 07:01 | disposition home or self-care (01) ==
LOC: EC 04:58
DX: S00.83XA Contusion of other part of head, initial encounter (principal); R94.31 Abnormal electrocardiogram [ECG] [EKG]; I10 Essential (primary) hypertension; E11.9 Type 2 diabetes mellitus without complications; K21.9 Gastro-esophageal reflux disease without esophagitis; M19.90 Unspecified osteoarthritis, unspecified site; F32.9 Major depressive disorder, single episode, unspecified; F41.9 Anxiety disorder, unspecified; Z87.891 Personal history of nicotine dependence; Z88.5 Allergy status to narcotic agent; Z88.7 Allergy status to serum and vaccine; Z91.048 Other nonmedicinal substance allergy status; Z79.1 Long term (current) use of non-steroidal anti-inflammatories (NSAID); Z79.82 Long term (current) use of aspirin; Z79.84 Long term (current) use of oral hypoglycemic drugs; Z79.891 Long term (current) use of opiate analgesic; Z79.899 Other long term (current) drug therapy; Z82.49 Family history of ischemic heart disease and other diseases of the circulatory system; W01.190A Fall on same level from slipping, tripping and stumbling with subsequent striking against furniture, initial encounter; Y93.89 Activity, other specified; Y92.009 Unspecified place in unspecified non-institutional (private) residence as the place of occurrence of the external cause
CPT/HCPCS: 36415; 70450; 72125; 80053; 82550; 82553; 84484; 85025; 85610; 85730; 99284

== ENCOUNTER 2019-06-09 19:58 | Emergency (ER) | payer MEDICARE ==
[2019-06-09 20:45] VITALS: RESP 20; TEMP 98.3
[2019-06-09] MEDS ORDERED: LORazepam 2 MG/ML INJ IV STA (20:49)
[2019-06-09] MEDS ORDERED: SODIUM CHLORIDE 0.9% 500 ML 500 ML IV STA ×2 (20:49→22:29)
[2019-06-09] MEDS ORDERED: ONDANSETRON 4 MG/2 ML VIAL IVP STA (20:49)
[2019-06-09] MEDS ORDERED: SODIUM CHLORIDE 0.9% 1,000 ML IV STA ×2 (20:49)
--- NOTE | 2019-06-09 20:49 | ED ---
Weakness HPI - General Chief complaint: Anxiety Stated complaint: Anxiety Time Seen by Provider: 06/09/19 20:09 Source: patient, RN notes reviewed, old records reviewed Mode of arrival: EMS Limitations: no limitations - History of Present Illness Initial comments: This is a 83-year-old female DF for evaluation of possible anxiety reaction. Patient states she has some shortness of breath and persistent nausea vomiting and diarrhea throughout the day. No chest pain. Patient does admit to increased stress and then has been going to the bathroom this is a 70 feels very dehydrated and can keep anything down. Again no headache chest pain or abdomina l pain MD Complaint: generalized weakness (Persistent nausea vomiting and diarrhea), lack of energy -: days(s) Location: generalized Severity: moderate Severity scale (1-10): 4 Consistency: constant, intermittent Worsens with: none Context: recent illness Associated Symptoms: loss of appetite, nausea/vomiting - Related Data Home Medications Medication Instructions Recorded Confirmed Aspirin 81 mg PO DAILY 02/04/16 06/11/17 Diphenox-Atrop 2.5-0.025 mg 2 tab PO TID PRN 02/04/16 06/11/17 [Lomotil] Enalapril/Hydrochlorothiazide 1 tab PO DAILY 02/04/16 06/11/17 [Vaseretic 5-12.5 mg] Omeprazole 20 mg PO DAILY 02/04/16 06/11/17 Celecoxib [CeleBREX] 200 mg PO BID 05/21/16 06/11/17 metFORMIN HCL 1,000 mg PO DAILY 05/21/16 06/11/17 Citalopram Hydrobromide [CeleXA] 40 mg PO DAILY 10/29/16 06/11/17 HYDROcodone/APAP 10-325MG [[place] 1 tab PO Q6H PRN 10/29/16 06/11/17 10-325] fentaNYL 50MCG/HR PATCH [Duragesic 1 patch TRANSDERM Q72H 10/29/16 06/11/17 50MCG/HR] ALPRAZolam [Xanax] 2 mg PO TID 06/11/17 06/11/17 Previous Rx's Medication Instructions Recorded Magnesium Oxide [Mag-Ox] 400 mg PO DAILY tab 10/30/16 Metoprolol Tartrate [Lopressor] 12.5 mg PO BID #60 tab 10/30/16 Allergies Allergy/AdvReac Type Severity Reaction Status Date / Time Iodine and Iodide Containing Allergy Rash/Hives Verified 04/07/18 05:08 Produc Tetanus Vaccines and Toxoid Allergy Swelling Verified 04/07/18 05:08 [Tetanus Vaccines & Toxoid] morphine AdvReac Nausea & Verified 04/07/18 05:08 Vomiting Review of Systems ROS Statement: Those systems with pertinent positive or pertinent negative responses have been documented in the HPI. ROS Other: All systems not noted in ROS Statement are negative. Past Medical History Past Medical History: Diabetes Mellitus, GERD/Reflux, Hyperlipidemia, Hypertension Additional Past Medical History / Comment(s): back pain, arthritis History of Any Multi-Drug Resistant Organisms: None Reported Past Surgical History: Appendectomy, Back Surgery, Breast Surgery, Joint Replacement, Tonsillectomy Additional Past Surgical History / Comment(s): bilateral knee sx Past Anesthesia/Blood Transfusion Reactions: No Reported Reaction Past Psychological History: Anxiety, Depression Smoking Status: Former smoker Past Alcohol Use History: None Reported Past Drug Use History: None Reported - Past Family History Father Family Medical History: Myocardial Infarction ([place]) General Exam Limitations: no limitations General appearance: alert, in no apparent distress Head exam: Present: atraumatic, normocephalic, normal inspection Eye exam: Present: normal appearance, PERRL, EOMI. Absent: scleral icterus, conjunctival injection, periorbital swelling ENT exam: Present: normal exam, mucous membranes moist Neck exam: Present: normal inspection. Absent: tenderness, meningismus, lymphadenopathy Respiratory exam: Present: normal lung sounds bilaterally. Absent: respiratory distress, wheezes, rales, rhonchi, stridor Cardiovascular Exam: Present: regular rate, normal rhythm, normal heart sounds. Absent: systolic murmur, diastolic murmur, rubs, gallop, clicks GI/Abdominal exam: Present: soft, normal bowel sounds. Absent: distended, tenderness, guarding, rebound, rigid Extremities exam: Present: normal inspection, full ROM, normal capillary refill. Absent: tenderness, pedal edema, joint swelling, calf tenderness Back exam: Present: normal inspection Neurological exam: Present: alert, oriented X3, CN II-XII intact Psychiatric exam: Present: normal affect, normal mood Skin exam: Present: warm, dry, intact, normal color. Absent: rash Course Vital Signs 06/09/19 06/09/19 20:18 21:18 Temperature 98.3 F Pulse Rate 85 83 Respiratory 20 20 Rate Blood Pressure 138/90 167/89 O2 Sat by Pulse 95 Oximetry - Reevaluation(s) Reevaluation #1: 06/09/19 22:30 Medical records reviewed Reevaluation #2: 06/09/19 22:30 Symptoms are significantly resolved currently Reevaluation #3: 06/09/19 22:30 Patient had 2 loose bowel movements here in the ER no diarrhea, informed of results smoking for discharge EKG Findings - EKG Comments: EKG Findings:: EKG shows sinus of a 74 to appear to 80, QRS 80, QTC 475 Medical Decision Making - Medical Decision Making 83 female to the ER with persistent nausea vomiting diarrhea. Patient given significant hydration, no significant problems in the ER and can be discharged home - Lab Data Result diagrams: 06/09/19 21:15 06/09/19 21:15 Lab Results 06/09/19 06/09/19 06/09/19 Range/Units 21:15 21:15 21:15 WBC 5.1 (3.8-10.6) k/uL RBC 4.10 (3.80-5.40) m/uL Hgb 11.3 L (11.4-16.0) gm/dL Hct 35.5 (34.0-46.0) % MCV 86.5 (80.0-100.0) fL MCH 27.6 (25.0-35.0) pg MCHC 31.9 (31.0-37.0) g/dL RDW 13.4 (11.5-15.5) % Plt Count 147 L (150-450) k/uL Neutrophils % 66 % Lymphocytes % 25 % Monocytes % 3 % Eosinophils % 2 % Basophils % 1 % Neutrophils # 3.4 (1.3-7.7) k/uL Lymphocytes # 1.3 (1.0-4.8) k/uL Monocytes # 0.2 (0-1.0) k/uL Eosinophils # 0.1 (0-0.7) k/uL Basophils # 0.1 (0-0.2) k/uL Sodium 137 (137-145) mmol/L Potassium 4.2 (3.5-5.1) mmol/L Chloride 107 (98-107) mmol/L Carbon Dioxide 25 (22-30) mmol/L Anion Gap 5 mmol/L BUN 21 H (7-17) mg/dL Creatinine 1.15 H (0.52-1.04) mg/dL Est GFR (CKD-EPI)AfAm 51 (>60 ml/min/1.73 sqM) Est GFR (CKD-EPI)NonAf 45 (>60 ml/min/1.73 sqM) Glucose 177 H (74-99) mg/dL Calcium 8.6 (8.4-10.2) mg/dL Phosphorus 2.8 (2.5-4.5) mg/dL Magnesium 1.8 (1.6-2.3) mg/dL Total Bilirubin 0.3 (0.2-1.3) mg/dL AST 21 (14-36) U/L ALT 10 (4-34) U/L Alkaline Phosphatase 111 (38-126) U/L Troponin I <0.012 (0.000-0.034) ng/mL Total Protein 6.2 L (6.3-8.2) g/dL Albumin 3.6 (3.5-5.0) g/dL Disposition Clinical Impression: Acute anxiety, Nausea & vomiting, Diarrhea Disposition: HOME SELF-CARE Condition: Good Instructions (If sedation given, give patient instructions): Generalized Anxiety Disorder (ED), Acute Diarrhea (ED) Is patient prescribed a controlled substance at d/c from ED?: No Referrals: Harvey Wesley MD [Primary Care Provider] - 1-2 days
[2019-06-09 21:34] LABS: Basophils # (A) 0.1 k/uL (0-0.2); Basophils % (A) 1 %; Eosinophils # (A) 0.1 k/uL (0-0.7); Eosinophils % (A) 2 %; HCT 35.5 % (34.0-46.0); HGB 11.3 gm/dL (11.4-16.0); Lymphocytes # (A) 1.3 k/uL (1.0-4.8); Lymphocytes % (A) 25 %; MCH 27.6 pg (25.0-35.0); MCHC 31.9 g/dL (31.0-37.0); MCV 86.5 fL (80.0-100.0); Mean Platelet Volume 9.4; Monocytes # (A) 0.2 k/uL (0-1.0); Monocytes % (A) 3 %; Neutrophils # (A) 3.4 k/uL (1.3-7.7); Neutrophils % (A) 66 %; Platelet Count 147 k/uL (150-450); RDW 13.4 % (11.5-15.5); WBC 5.1 k/uL (3.8-10.6)
[2019-06-09 21:43] LABS: Albumin 3.6 g/dL (3.5-5.0); Calcium 8.6 mg/dL (8.4-10.2); Magnesium 1.8 mg/dL (1.6-2.3); Phosphorus 2.8 mg/dL (2.5-4.5); Potassium 4.2 mmol/L (3.5-5.1); Total Bilirubin 0.3 mg/dL (0.2-1.3); Total Protein 6.2 g/dL (6.3-8.2)
[2019-06-09 22:29] VITALS: BP 167/89; PULSE 83
[2019-06-09] MEDS ORDERED: ONDANSETRON ODT 4 MG TAB PO STA (22:29)
[2019-06-09] MEDS ORDERED: ONDANSETRON 4 MG ODT STARTER PACK 2 TAB BTL PO STA (22:29)
[2019-06-09] MEDS ORDERED: DIPHENOX-ATROP 2.5-0.025 MG 1 EACH TAB PO STA (22:29)
[2019-06-09] MEDS ORDERED: DIPHENOX-ATROP STARTER PACK 8 TAB BTL PO STA (22:29)
== END 2019-06-09 23:42 | disposition home or self-care (01) ==
LOC: EC 19:58
DX: F41.9 Anxiety disorder, unspecified (principal); R11.2 Nausea with vomiting, unspecified; R19.7 Diarrhea, unspecified; F32.9 Major depressive disorder, single episode, unspecified; E11.9 Type 2 diabetes mellitus without complications; K21.9 Gastro-esophageal reflux disease without esophagitis; I10 Essential (primary) hypertension; M19.90 Unspecified osteoarthritis, unspecified site; Z79.82 Long term (current) use of aspirin; Z79.1 Long term (current) use of non-steroidal anti-inflammatories (NSAID); Z79.84 Long term (current) use of oral hypoglycemic drugs; Z79.899 Other long term (current) drug therapy; Z88.5 Allergy status to narcotic agent; Z88.7 Allergy status to serum and vaccine; Z91.041 Radiographic dye allergy status; Z87.891 Personal history of nicotine dependence
CPT/HCPCS: 36415; 93005; 80053; 83735; 84100; 84484; 85025; 96374; 96375; 96361 ×3; 99284; J2060; J2405; S0119

== ENCOUNTER 2021-01-17 13:08 | Emergency (ER) | payer MEDICARE, OTHER ==
[2021-01-17 14:51] LABS: Albumin 4.5 g/dL (3.5-5.0); Calcium 9.7 mg/dL (8.4-10.2); Potassium 3.7 mmol/L (3.5-5.1); Total Bilirubin 0.7 mg/dL (0.2-1.3); Total Protein 7.2 g/dL (6.3-8.2)
[2021-01-17 15:18] LABS: Basophils % (A) 0 %; Eosinophils % (A) 0 %; HCT 39.1 % (34.0-46.0); HGB 12.3 gm/dL (11.4-16.0); Lymphocytes # (A) 3.3 k/uL (1.0-4.8); Lymphocytes % (A) 33 %; MCH 26.1 pg (25.0-35.0); MCHC 31.5 g/dL (31.0-37.0); MCV 82.6 fL (80.0-100.0); Monocytes # (A) 0.2 k/uL (0-1.0); Monocytes % (A) 2 %; Neutrophils # (A) 6.2 k/uL (1.3-7.7); Neutrophils % (A) 62 %; Platelet Count 264 k/uL (150-450); RBC 4.73 m/uL (3.80-5.40); RDW 14.7 % (11.5-15.5); WBC 10.1 k/uL (3.8-10.6)
[2021-01-17] MEDS ORDERED: ONDANSETRON 4 MG/2 ML VIAL IVP STA (15:18)
[2021-01-17] MEDS ORDERED: SODIUM CHLORIDE 0.9% 1,000 ML IV STA (15:18)
--- NOTE | 2021-01-17 15:24 | ED ---
General Adult HPI - General Chief complaint: Abdominal Pain Stated complaint: Vomiting,Diarrhea Time Seen by Provider: 01/17/21 15:04 Source: patient Mode of arrival: wheelchair Limitations: no limitations - History of Present Illness Initial comments: 85-year-old female with a history of IBS, anxiety, diabetes presents to the emergency department accompanied by her son, for evaluation of mid abdominal pain. Patient states she has been having intermittent episodes of vague discomfort, but is unable to describe the pain. Also reports occasional diarrhea for the past 2 weeks for which she has been taking Lomotil. States she developed nausea 3 nights ago and vomits 1-2 times per day with food intake. Patient states she is able to tolerate liquids and has been drinking water. Does report decreased appetite. Patient denies headache, fever, chills, chest pain, shortness of breath, hematuria, dysuria, and hematochezia. - Related Data Home Medications Medication Instructions Recorded Confirmed Diphenox-Atrop 2.5-0.025 mg 2 tab PO QID PRN 02/04/16 01/17/21 [Lomotil] Omeprazole 20 mg PO DAILY 02/04/16 01/17/21 Citalopram Hydrobromide [CeleXA] 40 mg PO DAILY 10/29/16 01/17/21 fentaNYL 50MCG/HR PATCH [Duragesic 1 patch TRANSDERM Q72H 10/29/16 01/17/21 50MCG/HR] ALPRAZolam [Xanax] 0.5 - 1 mg PO TID PRN 01/17/21 01/17/21 Temazepam 30 mg PO HS 01/17/21 01/17/21 Allergies Allergy/AdvReac Type Severity Reaction Status Date / Time Iodine and Iodide Containing Allergy Rash/Hives Verified 01/17/21 17:29 Produc Tetanus Vaccines and Toxoid Allergy Swelling Verified 01/17/21 17:29 [Tetanus Vaccines & Toxoid] morphine AdvReac Nausea & Verified 01/17/21 17:29 Vomiting Review of Systems ROS Statement: Those systems with pertinent positive or pertinent negative responses have been documented in the HPI. ROS Other: All systems not noted in ROS Statement are negative. Past Medical History Past Medical History: Diabetes Mellitus, GERD/Reflux, Hyperlipidemia, Hypertension Additional Past Medical History / Comment(s): back pain, arthritis History of Any Multi-Drug Resistant Organisms: None Reported Past Surgical History: Appendectomy, Back Surgery, Breast Surgery, Joint Replacement, Tonsillectomy Additional Past Surgical History / Comment(s): bilateral knee sx Past Anesthesia/Blood Transfusion Reactions: No Reported Reaction Past Psychological History: Anxiety, Depression Smoking Status: Former smoker Past Alcohol Use History: None Reported Past Drug Use History: None Reported - Past Family History Father Family Medical History: Myocardial Infarction ([place]) General Exam Limitations: no limitations General appearance: alert, in no apparent distress, other (Well-developed, well- nourished female in no acute distress. Initial temperature 99.1, pulse 98, respirations 18, blood pressure 204/104, pulse ox 96% on room air. Blood pressure upom recheck is 173/96.) ENT exam: Present: normal exam, normal oropharynx, mucous membranes moist Respiratory exam: Present: normal lung sounds bilaterally. Absent: respiratory distress, wheezes, rales, rhonchi, stridor Cardiovascular Exam: Present: regular rate, normal rhythm, normal heart sounds. Absent: systolic murmur, diastolic murmur, rubs, gallop, clicks GI/Abdominal exam: Present: soft, tenderness (Periumbilical tenderness upon palpation), normal bowel sounds. Absent: distended, guarding, rebound, rigid Back exam: Absent: CVA tenderness (R), CVA tenderness (L) Neurological exam: Present: alert, oriented X3 Psychiatric exam: Present: anxious (Son reports patient did take a Xanax prior to arrival) Skin exam: Present: warm, dry, intact, normal color Course Vital Signs 01/17/21 01/17/21 01/17/21 14:06 16:11 17:13 Temperature 99.1 F Pulse Rate 98 95 94 Respiratory 18 20 20 Rate Blood Pressure 204/104 179/105 213/95 O2 Sat by Pulse 96 97 96 Oximetry 01/17/21 01/17/21 01/17/21 18:05 19:05 20:12 Temperature 98.4 F Pulse Rate 98 97 98 Respiratory 20 20 20 Rate Blood Pressure 199/99 156/94 167/92 O2 Sat by Pulse 94 L 95 95 Oximetry Medical Decision Making - Medical Decision Making 85-year-old female is evaluated for vague complaints of mid abdominal pain, occasional diarrhea, and intermittent episodes of vomiting. Physical exam is positive for periumbilical pain upon palpation. No significant findings blood or urine. CT of the abdomen and pelvis was obtained without contrast as patient does have a known dye ALLERGY. Significant finding did include several ground glass opacities in the base of the lungs, therefore patient was swabbed for Covid which was negative. Patient was given IV fluids, pain medicine, and nausea medicine with moderate relief of symptoms. Patient was instructed to follow up with her primary care provider for a recheck in the next 1-2 days. Return parameters were discussed in detail. Patient and her son verbalized und erstanding and agreed with this plan. The patient's case was discussed with my attending Dr. Richards - Lab Data Result diagrams: 01/17/21 14:32 01/17/21 14:32 Lab Results 01/17/21 01/17/21 01/17/21 Range/Units 14:32 14:32 16:33 WBC 10.1 (3.8-10.6) k/uL RBC 4.73 (3.80-5.40) m/uL Hgb 12.3 (11.4-16.0) gm/dL Hct 39.1 (34.0-46.0) % MCV 82.6 (80.0-100.0) fL MCH 26.1 (25.0-35.0) pg MCHC 31.5 (31.0-37.0) g/dL RDW 14.7 (11.5-15.5) % Plt Count 264 (150-450) k/uL MPV 9.0 Neutrophils % 62 % Lymphocytes % 33 % Monocytes % 2 % Eosinophils % 0 % Basophils % 0 % Neutrophils # 6.2 (1.3-7.7) k/uL Lymphocytes # 3.3 (1.0-4.8) k/uL Monocytes # 0.2 (0-1.0) k/uL Eosinophils # 0.0 (0-0.7) k/uL Basophils # 0.0 (0-0.2) k/uL Sodium 134 L (137-145) mmol/L Potassium 3.7 (3.5-5.1) mmol/L Chloride 102 (98-107) mmol/L Carbon Dioxide 22 (22-30) mmol/L Anion Gap 10 mmol/L BUN 11 (7-17) mg/dL Creatinine 0.84 (0.52-1.04) mg/dL Est GFR (CKD-EPI)AfAm 74 (>60 ml/min/1.73 sqM) Est GFR (CKD-EPI)NonAf 64 (>60 ml/min/1.73 sqM) Glucose 227 H (74-99) mg/dL Calcium 9.7 (8.4-10.2) mg/dL Total Bilirubin 0.7 (0.2-1.3) mg/dL AST 27 (14-36) U/L ALT 14 (4-34) U/L Alkaline Phosphatase 104 (38-126) U/L Total Protein 7.2 (6.3-8.2) g/dL Albumin 4.5 (3.5-5.0) g/dL Amylase 60 (30-110) U/L Lipase 44 (23-300) U/L Urine Color Light Yellow Urine Appearance Clear (Clear) Urine pH 6.0 (5.0-8.0) Ur Specific [place] 1.011 (1.001-1.035) Urine Protein Trace H (Negative) Urine Glucose (UA) Trace H (Negative) Urine Ketones 1+ H (Negative) Urine Blood Negative (Negative) Urine Nitrite Negative (Negative) Urine Bilirubin Negative (Negative) Urine Urobilinogen <2.0 (<2.0) mg/dL Ur Leukocyte Esterase Small H (Negative) Urine WBC 2 (0-5) /hpf Urine Bacteria Rare H (None) /hpf Urine Mucus Rare H (None) /hpf Coronavirus (PCR) (Not Detectd) 01/17/21 Range/Units 19:52 WBC (3.8-10.6) k/uL RBC (3.80-5.40) m/uL Hgb (11.4-16.0) gm/dL Hct (34.0-46.0) % MCV (80.0-100.0) fL MCH (25.0-35.0) pg MCHC (31.0-37.0) g/dL RDW (11.5-15.5) % Plt Count (150-450) k/uL MPV Neutrophils % % Lymphocytes % % Monocytes % % Eosinophils % % Basophils % % Neutrophils # (1.3-7.7) k/uL Lymphocytes # (1.0-4.8) k/uL Monocytes # (0-1.0) k/uL Eosinophils # (0-0.7) k/uL Basophils # (0-0.2) k/uL Sodium (137-145) mmol/L Potassium (3.5-5.1) mmol/L Chloride (98-107) mmol/L Carbon Dioxide (22-30) mmol/L Anion Gap mmol/L BUN (7-17) mg/dL Creatinine (0.52-1.04) mg/dL Est GFR (CKD-EPI)AfAm (>60 ml/min/1.73 sqM) Est GFR (CKD-EPI)NonAf (>60 ml/min/1.73 sqM) Glucose (74-99) mg/dL Calcium (8.4-10.2) mg/dL Total Bilirubin (0.2-1.3) mg/dL AST (14-36) U/L ALT (4-34) U/L Alkaline Phosphatase (38-126) U/L Total Protein (6.3-8.2) g/dL Albumin (3.5-5.0) g/dL Amylase (30-110) U/L Lipase (23-300) U/L Urine Color Urine Appearance (Clear) Urine pH (5.0-8.0) Ur Specific [place] (1.001-1.035) Urine Protein (Negative) Urine Glucose (UA) (Negative) Urine Ketones (Negative) Urine Blood (Negative) Urine Nitrite (Negative) Urine Bilirubin (Negative) Urine Urobilinogen (<2.0) mg/dL Ur Leukocyte Esterase (Negative) Urine WBC (0-5) /hpf Urine Bacteria (None) /hpf Urine Mucus (None) /hpf Coronavirus (PCR) Not Detected (Not Detectd) - EKG Data -: EKG Interpreted by Me EKG shows normal: sinus rhythm Rate: normal EKG Comments: EKG was obtained at 1557 that shows normal sinus rhythm with first-degree AV bl ock and prolonged QT. Ventricular rate 87, CT interval 242, QRS duration 86, QT/QTc 408/490. - Radiology Data Radiology results: report reviewed CT of the abdomen and pelvis was obtained. Report was reviewed in its entirety. Impressions per Dr. Oro include #1 diverticulosis didn't suspect acute diverticulitis number to moderate hiatal hernia, #3 chronic appearing compression fracture of T12, #4 several areas of ground glass and soft tissue n odules in lung bases. Disposition Clinical Impression: Abdominal pain, Nausea and vomiting Disposition: HOME SELF-CARE Condition: Stable Instructions (If sedation given, give patient instructions): Acute Nausea and Vomiting (ED), Acute Abdominal Pain (ED) Additional Instructions: Rest, continue increasing fluids and easy to digest solid foods as tolerated. Follow-up with your primary care provider for a recheck in the next 1-2 days. Return to the emergency department with any new, worsening, or concerning symptoms. With the pending COVID test, you will receive a call with the result. Is patient prescribed a controlled substance at d/c from ED?: No Referrals: Harvey Wesley MD [Primary Care Provider] - 1-2 days Time of Disposition: 19:55
[2021-01-17 16:14] VITALS: RESP 20
[2021-01-17 16:42] LABS: Appearance,Urine Clear (Clear); Bacteria,Urine Rare /hpf; Bilirubin,Urine Negative (Negative); Blood,Urine Negative (Negative); Color,Urine Light Yellow; Glucose,Urine (UA) Trace (Negative); Ketones,Urine 1+ (Negative); Leukocyte Esterase,Urine Small (Negative); Mucus,Urine Rare /hpf; Nitrite,Urine Negative (Negative); Protein,Urine Trace (Negative); Specific Gravity,Urine 1.011 (1.001-1.035); Urobilinogen,Urine <2.0 mg/dL (<2.0); WBC,Urine 2 /hpf (0-5)
[2021-01-17] MEDS ORDERED: HYDROmorphone 0.5 MG/0.5 ML SYRINGE IVP STA (17:06)
--- NOTE | 2021-01-17 19:19 | CT ---
EXAMINATION TYPE: CT abdomen pelvis wo con DATE OF EXAM: 01/17/2021 COMPARISON: CT pelvis 10/04/2015 HISTORY: Mid abdominal pain. CT DLP: 563.5 mGycm Automated exposure control for dose reduction was used. TECHNIQUE: Helical acquisition of images was performed from the lung bases through the pelvis. FINDINGS: LUNG BASES: sub-6 mm nodules at the posterior right base. Sub-5 mm groundglass nodules are also seen in the right middle lobe. Subcentimeter area of groundglass and tree-in-bud nodularity seen in the me dial middle lobe. LIVER/GB: Sub-cm hypodensity of the liver. PANCREAS: Fatty atrophy. SPLEEN: Calcified granulomata. ADRENALS: No significant abnormality is seen. KIDNEYS: No significant abnormality is seen. FREE AIR: No free air is visualized RETROPERITONEAL ADENOPATHY: None visualized REPRODUCTIVE ORGANS: No significant abnormality is seen URINARY BLADDER: No significant abnormality is seen. PELVIC ADENOPATHY: None visualized. OSSEOUS STRUCTURES: Chronic-appearing compression fracture the distal vertebral body is new from CT from October 2016. Posterior spinal fusion L4-L5 with intervertebral disc spacers. Degenerative changes of the lumbar spine. Body BOWEL: Diverticulosis coli of the sigmoid colon without evidence of acute diverticulitis. Hiatal hernia. OTHER: Atherosclerotic disease of the abdominal aorta and iliac vessels without abdominal aortic aneu rysm. Tiny fat-containing umbilical hernia. IMPRESSION: 1. Diverticulosis coli of the sigmoid colon without evidence of acute diverticulitis. 2. Moderate hiatal hernia. 3. Chronic-appearing compression fracture the T12 over 80% height loss. Vertebral body is new from C T from October 2016. Correlate for point tenderness. 4. Several sub-6 mm groundglass and soft tissue nodules at the lung bases. Correlate with chest imag ing.
[2021-01-17 20:15] VITALS: BP 167/92; PULSE 98; TEMP 98.4
== END 2021-01-17 20:15 | disposition home or self-care (01) ==
LOC: EC 13:08
DX: R10.33 Periumbilical pain (principal); R11.2 Nausea with vomiting, unspecified; E11.9 Type 2 diabetes mellitus without complications; I10 Essential (primary) hypertension; E78.5 Hyperlipidemia, unspecified; K21.9 Gastro-esophageal reflux disease without esophagitis; F32.9 Major depressive disorder, single episode, unspecified; F41.9 Anxiety disorder, unspecified; Z87.891 Personal history of nicotine dependence; Z79.899 Other long term (current) drug therapy
CPT/HCPCS: 36415; 93005; 80053; 82150; 83690; 85025; 81001; 87635; 74176; 96374; 96375; 96361 ×4; 99284; J2405; J1170

== ENCOUNTER 2021-08-25 12:29 | Emergency (ER) | payer MEDICARE, OTHER ==
[2021-08-25 13:54] VITALS: TEMP 98.5
[2021-08-25 14:27] LABS: Basophils % (A) 0 %; Eosinophils % (A) 0 %; HCT 34.7 % (34.0-46.0); HGB 10.6 gm/dL (11.4-16.0); Hypochromasia Slight; Lymphocytes % (A) 37 %; MCH 26.6 pg (25.0-35.0); MCHC 30.6 g/dL (31.0-37.0); Monocytes # (A) 0.4 k/uL (0-1.0); Monocytes % (A) 3 %; Neutrophils # (A) 6.2 k/uL (1.3-7.7); Neutrophils % (A) 57 %; Platelet Count 289 k/uL (150-450); RBC 3.99 m/uL (3.80-5.40); RDW 14.1 % (11.5-15.5); WBC 10.9 k/uL (3.8-10.6)
[2021-08-25 14:37] LABS: Albumin 4.6 g/dL (3.5-5.0); Calcium 9.6 mg/dL (8.4-10.2); Potassium 4.2 mmol/L (3.5-5.1); Total Bilirubin 0.6 mg/dL (0.2-1.3); Total Protein 7.5 g/dL (6.3-8.2)
[2021-08-25 14:50] LABS: INR 1.1 (<1.2); Prothrombin Time 12.1 sec (9.0-12.0)
--- NOTE | 2021-08-25 15:06 | XR ---
EXAMINATION TYPE: XR chest 2V DATE OF EXAM: 08/25/2021 COMPARISON: 10/28/2016 TECHNIQUE: PA and lateral views submitted. HISTORY: Shortness of breath FINDINGS: The lungs are clear and there is no pneumothorax, pleural effusion, or focal pneumonia. Ectasia of the aorta. Heart size normal. No overt failure. Diffuse osteopenia. Degenerative changes of the spine . Arthropathy of the shoulders. IMPRESSION: 1. No acute process.
[2021-08-25] MEDS ORDERED: methylPREDNISolone SOD SUCCI 125 MG/2 ML VIAL IV STA (16:42)
[2021-08-25] MEDS ORDERED: diphenhydrAMINE 50 MG/ML 1 ML VIAL IVP STA (16:42)
[2021-08-25] MEDS ORDERED: FAMOTIDINE 20 MG/2 ML VIAL IV STA (16:43)
[2021-08-25] MEDS ORDERED: ACETAMINOPHEN TAB 325 MG TAB PO STA (16:54)
[2021-08-25 17:35] VITALS: RESP 22
--- NOTE | 2021-08-25 17:45 | ED ---
General Adult HPI - General Chief complaint: Shortness of Breath Stated complaint: pneumonia Time Seen by Provider: 08/25/21 16:25 Source: patient, Caregiver Mode of arrival: wheelchair Limitations: physical limitation - History of Present Illness Initial comments: Is an 85-year-old female presenting with chief complaint of cough and shortness of breath 10 days. She was seen by her PCP on Sunday and prescribed azithromycin and prednisone, patient states that she is still coughing and is concerned she is not getting better. Patient states that she is not able to produce any mucus when coughing. She denies any lightheadedness or discoloration of the lips or fingertips. She denies any history of COPD or CHF. She has not been taking any inhalers or nebulizer breathing treatments at home. She denies any fever, chills, nausea, vomiting, abdominal pain, chest pain, loss of consciousness, hematochezia, hematemesis, melena, dysuria, hematuria. - Related Data Home Medications Medication Instructions Recorded Confirmed Omeprazole 20 mg PO DAILY 02/04/16 08/25/21 Citalopram Hydrobromide [CeleXA] 40 mg PO DAILY 10/29/16 08/25/21 ALPRAZolam [Xanax] 1 mg PO TID 01/17/21 08/25/21 Temazepam 30 mg PO HS 01/17/21 08/25/21 ALPRAZolam [Xanax] 1 mg PO BID PRN 08/25/21 08/25/21 Acetaminophen Tab [Tylenol] 650 mg PO Q4H PRN 08/25/21 08/25/21 Cranberry Fruit Extract [Cranberry] 200 mg PO DAILY 08/25/21 08/25/21 Lisinopril-Hctz 10-12.5 mg 1 tab PO HS 08/25/21 08/25/21 [Zestoretic 10-12.5] Melatonin 10 mg PO HS 08/25/21 08/25/21 Pioglitazone [Actos] 15 mg PO DAILY 08/25/21 08/25/21 Psyllium Husk [Metamucil] 0.4 gm PO DAILY 08/25/21 08/25/21 buPROPion HCL [Wellbutrin XL] 300 mg PO DAILY 08/25/21 08/25/21 fentaNYL 75MCG/HR PATCH [Duragesic 1 patch TRANSDERM Q72H 08/25/21 08/25/21 75MCG/HR] risperiDONE [RisperDAL] 0.25 mg PO BID 08/25/21 08/25/21 Previous Rx's Medication Instructions Recorded Albuterol Nebulized [Ventolin 2.5 mg INHALATION Q6H PRN 6 Days 08/25/21 Nebulized] #75 ml Allergies Allergy/AdvReac Type Severity Reaction Status Date / Time Iodine and Iodide Containing Allergy Rash/Hives Verified 08/25/21 17:10 Produc Tetanus Vaccines and Toxoid Allergy Swelling Verified 08/25/21 17:10 [Tetanus Vaccines & Toxoid] morphine AdvReac Nausea & Verified 08/25/21 17:10 Vomiting Review of Systems ROS Statement: Those systems with pertinent positive or pertinent negative responses have been documented in the HPI. ROS Other: All systems not noted in ROS Statement are negative. Past Medical History Past Medical History: Diabetes Mellitus, GERD/Reflux, Hyperlipidemia, Hypertension Additional Past Medical History / Comment(s): back pain, arthritis History of Any Multi-Drug Resistant Organisms: None Reported Past Surgical History: Appendectomy, Back Surgery, Breast Surgery, Joint Re placement, Tonsillectomy Additional Past Surgical History / Comment(s): bilateral knee sx Past Anesthesia/Blood Transfusion Reactions: No Reported Reaction Past Psychological History: Anxiety, Depression Smoking Status: Former smoker Past Alcohol Use History: None Reported Past Drug Use History: None Reported - Past Family History Father Family Medical History: Myocardial Infarction ([place]) General Exam Limitations: physical limitation General appearance: alert, in no apparent distress Head exam: Present: atraumatic, normocephalic, normal inspection Eye exam: Present: normal appearance, EOMI. Absent: scleral icterus Neck exam: Present: normal inspection Respiratory exam: Present: wheezes (Minimal), rales (Minimal). Absent: respiratory distress, rhonchi, stridor Cardiovascular Exam: Present: regular rate, normal rhythm, normal heart sounds. Absent: systolic murmur, diastolic murmur, rubs, gallop, clicks Back exam: Present: normal inspection Neurological exam: Present: alert, oriented X3, CN II-XII intact Psychiatric exam: Present: normal affect, normal mood Skin exam: Present: warm, dry, intact, normal color. Absent: rash Course Vital Signs 08/25/21 08/25/2122 13:50 16:45 17:54 Temperature 98.5 F Pulse Rate 82 89 Respiratory 18 22 Rate Blood Pressure 135/54 134/72 O2 Sat by Pulse 95 96 Oximetry 08/25/21 08/25/21 18:44 18:59 Temperature Pulse Rate 87 89 Respiratory Rate Blood Pressure O2 Sat by Pulse Oximetry Medical Decision Making - Medical Decision Making Patient is an 85-year-old female presenting with chief complaint of shortness of breath and cough. Symptoms been going on for the last 10 days, she was treated 5 days ago with azithromycin and prednisone, however she is concerned she is not getting better. On examination she is not hypoxic. Lungs are remarkable for minimal wheezing and Rales, otherwise unremarkable. She has minimal leukocytosis with WBC of 10.9. D-dimer is elevated at 1.81. BUN and creatinine are elevated at 24 and 1.29 respectively. She is negative for coronavirus. Chest x-ray shows no acute process. CTA of the chest shows no evidence of pulmonary embolism. Patient was given a DuoNeb. I educated her on viral cough since supportive treatment. She appears stable for discharge with outpatient follow-up at this time. I educated her on return parameters and alarm symptoms. Report back to ER with any worsening symptoms. I answered all questions. Patient and her daughter at bedside conveyed verbal understanding and agreed to the plan. I discussed this case with my attending Dr. Comer. - Lab Data Result diagrams: 08/25/21 13:59 08/25/21 13:59 Lab Results 08/25/21 08/25/21 08/25/21 Range/Units 13:59 13:59 13:59 WBC 10.9 H (3.8-10.6) k/uL RBC 3.99 (3.80-5.40) m/uL Hgb 10.6 L (11.4-16.0) gm/dL Hct 34.7 (34.0-46.0) % MCV 87.0 (80.0-100.0) fL MCH 26.6 (25.0-35.0) pg MCHC 30.6 L (31.0-37.0) g/dL RDW 14.1 (11.5-15.5) % Plt Count 289 (150-450) k/uL MPV 8.0 Neutrophils % 57 % Lymphocytes % 37 % Monocytes % 3 % Eosinophils % 0 % Basophils % 0 % Neutrophils # 6.2 (1.3-7.7) k/uL Lymphocytes # 4.0 (1.0-4.8) k/uL Monocytes # 0.4 (0-1.0) k/uL Eosinophils # 0.0 (0-0.7) k/uL Basophils # 0.0 (0-0.2) k/uL Hypochromasia Slight PT 12.1 H (9.0-12.0) sec INR 1.1 (<1.2) D-Dimer 1.81 H (<0.60) mg/L FEU Sodium 136 L (137-145) mmol/L Potassium 4.2 (3.5-5.1) mmol/L Chloride 99 (98-107) mmol/L Carbon Dioxide 24 (22-30) mmol/L Anion Gap 13 mmol/L BUN 24 H (7-17) mg/dL Creatinine 1.29 H (0.52-1.04) mg/dL Est GFR (CKD-EPI)AfAm 44 (>60 ml/min/1.73 sqM) Est GFR (CKD-EPI)NonAf 38 (>60 ml/min/1.73 sqM) Glucose 229 H (74-99) mg/dL Calcium 9.6 (8.4-10.2) mg/dL Total Bilirubin 0.6 (0.2-1.3) mg/dL AST 34 (14-36) U/L ALT 21 (4-34) U/L Alkaline Phosphatase 87 (38-126) U/L Troponin I (0.000-0.034) ng/mL Total Protein 7.5 (6.3-8.2) g/dL Albumin 4.6 (3.5-5.0) g/dL Coronavirus (PCR) (Not Detectd) 08/25/21 08/25/21 Range/Units 13:59 13:59 WBC (3.8-10.6) k/uL RBC (3.80-5.40) m/uL Hgb (11.4-16.0) gm/dL Hct (34.0-46.0) % MCV (80.0-100.0) fL MCH (25.0-35.0) pg MCHC (31.0-37.0) g/dL RDW (11.5-15.5) % Plt Count (150-450) k/uL MPV Neutrophils % % Lymphocytes % % Monocytes % % Eosinophils % % Basophils % % Neutrophils # (1.3-7.7) k/uL Lymphocytes # (1.0-4.8) k/uL Monocytes # (0-1.0) k/uL Eosinophils # (0-0.7) k/uL Basophils # (0-0.2) k/uL Hypochromasia PT (9.0-12.0) sec INR (<1.2) D-Dimer (<0.60) mg/L FEU Sodium (137-145) mmol/L Potassium (3.5-5.1) mmol/L Chloride (98-107) mmol/L Carbon Dioxide (22-30) mmol/L Anion Gap mmol/L BUN (7-17) mg/dL Creatinine (0.52-1.04) mg/dL Est GFR (CKD-EPI)AfAm (>60 ml/min/1.73 sqM) Est GFR (CKD-EPI)NonAf (>60 ml/min/1.73 sqM) Glucose (74-99) mg/dL Calcium (8.4-10.2) mg/dL Total Bilirubin (0.2-1.3) mg/dL AST (14-36) U/L ALT (4-34) U/L Alkaline Phosphatase (38-126) U/L Troponin I <0.012 (0.000-0.034) ng/mL Total Protein (6.3-8.2) g/dL Albumin (3.5-5.0) g/dL Coronavirus (PCR) Not Detected (Not Detectd) Disposition Clinical Impression: Viral URI with cough Disposition: HOME SELF-CARE Condition: Good Instructions (If sedation given, give patient instructions): Upper Respiratory Infection ([place]) Additional Instructions: Take medication as prescribed. You may utilize an [id number] ALLERGY medication, such as Zantac, Rose, Xyzal, for congestion and ear pressure. Follow-up with your PCP this week. Report back to ER if any worsening symptoms. Prescriptions: Albuterol Nebulized [Ventolin Nebulized] 2.5 mg INHALATION Q6H PRN 6 Days #75 ml PRN Reason: Cough Is patient prescribed a controlled substance at d/c from ED?: No Referrals: Carlos Wesley MD [STAFF PHYSICIAN] - 09/01/21 Time of Disposition: 19:09
[2021-08-25] MEDS ORDERED: IPRATROPIUM-ALBUTEROL 3 ML NEB INHALATION STA (17:46)
--- NOTE | 2021-08-25 18:13 | CT ---
EXAMINATION TYPE: CT chest angio for PE CT DLP: 280.5 mGycm, Automated exposure control for dose reduction was used. DATE OF EXAM: 08/25/2021 5:49 PM COMPARISON: CT abdomen pelvis 01/17/2021. CTs of the chest with most recent on 10/29/2016 . CLINICAL INDICATION:Female, 85 years old with history of Shortness of breath and elevated d-dimer; Sh ortness of breath and cough. TECHNIQUE/CONTRAST: CTA scan of the thorax is performed with IV Contrast, patient injected with 54ml mL of Isovue 370, pu lmonary embolism protocol. MIP images are created and reviewed. FINDINGS: Pulmonary Artery: There is no evidence for a filling defect within the pulmonary vasculature to sugge st acute pulmonary embolism. The pulmonary artery is of normal size. Lungs/Pleura: Expiratory exam with motion artifact which is felt to account for the mosaic attenuatio n of the lung parenchyma. No evidence of focal consolidation, pleural effusion or pneumothorax. Right lower lobe 6 mm and right middle lobe 4 mm pulmonary nodule also change. Other pulmonary nodules see n on prior suboptimally evaluated given motion pulmonary nodule is unchanged from 2017. No suspicious pulmonary nodules. Airway: Large airways are patent. Heart: The heart is mildly enlarged for size. There is a small hiatal hernia. There is no dislocation s of the mitral valve and aortic leaflets. Vasculature: No evidence of aortic aneurysm. Mediastinum: No gross evidence of adenopathy. Musculoskeletal: There is compression deformity of T12 near complete height loss. 2 similar back to 1 Soft Tissues: Unremarkable. Lower neck: No significant findings. Upper Abdomen: Calcified granuloma seen within the spleen. IMPRESSION: 1. No evidence of pulmonary embolism. 2. 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 3. 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 4. Small hiatal hernia. 5. Motion limits evaluation slightly visualized pulmonary nodules described above are stable from 201 7.
[2021-08-25 18:38] VITALS: BP 134/72
[2021-08-25 19:00] VITALS: PULSE 89
== END 2021-08-25 19:31 | disposition home or self-care (01) ==
LOC: EC 12:29
DX: J06.9 Acute upper respiratory infection, unspecified (principal); E11.9 Type 2 diabetes mellitus without complications; E78.5 Hyperlipidemia, unspecified; I10 Essential (primary) hypertension; K21.9 Gastro-esophageal reflux disease without esophagitis; Z79.84 Long term (current) use of oral hypoglycemic drugs; Z79.899 Other long term (current) drug therapy; Z87.891 Personal history of nicotine dependence; Z88.5 Allergy status to narcotic agent; Z88.7 Allergy status to serum and vaccine; Z20.822 Contact with and (suspected) exposure to COVID-19; Z88.8 Allergy status to other drugs, medicaments and biological substances
CPT/HCPCS: 99285; 96374; 96375; 36415; 93005; 85379; 80053; 84484; 85025; 85610; 87635; 71046; 71275; J1200; J2930; Q9967

== ENCOUNTER 2021-11-18 12:29 | Inpatient (IN) | payer MEDICARE, OTHER ==
[2021-11-18] MEDS ORDERED: ALBUTEROL NEBULIZED 2.5 MG/3 ML INHALATION PRN (12:51)
[2021-11-18] MEDS ORDERED: SODIUM CHLORIDE 0.9% 500 ML 500 ML IV STA (12:53)
--- NOTE | 2021-11-18 13:02 | ED ---
General Adult HPI - General Chief complaint: Upper Respiratory Infection Stated complaint: Covid+ Time Seen by Provider: 11/18/21 12:33 Source: patient, RN notes reviewed, old records reviewed Mode of arrival: ambulatory Limitations: no limitations - History of Present Illness Initial comments: Patient is an 86-year-old female with past medical history remarkable for diabetes, acid reflux, hypertension who presents to the emergency Department complaining of worsening COVID-19 infection. States she has had symptoms since last . Today is day 8. Took 2 home tests and tested positive on Sunday and of this week. She was vaccinated and received one booster. Has been having a productive cough of greenish mucus that seems to be getting worse over the last few days. Also complaining of shortness of breath. Complaining of generalized fatigue. Denies chest pain, abdominal pain, nausea, vomiting, diarrhea. Is reduced appetite with reduced by mouth intake. Denies fevers. Has no other acute complaints at this time. Presents for concern for worsening 19 infection. Was started on Paxlovid yesterday. Was found by a daughter today at home weak, fatigued, with concern for worsening infection. Is not normally on oxygen at home. - Related Data Home Medications Medication Instructions Recorded Confirmed Omeprazole 20 mg PO DAILY 02/04/16 11/18/21 Citalopram Hydrobromide [CeleXA] 40 mg PO DAILY 10/29/16 11/18/21 ALPRAZolam [Xanax] 1 mg PO BID PRN 08/25/21 11/18/21 Melatonin [Melatonin ER] 10 mg PO HS 08/25/21 11/18/21 Pioglitazone [Actos] 15 mg PO DAILY 08/25/21 11/18/21 buPROPion HCL [Wellbutrin XL] 150 mg PO DAILY 08/25/21 11/18/21 fentaNYL 75MCG/HR PATCH [Duragesic 1 patch TRANSDERM Q72H 08/25/21 11/18/21 75MCG/HR] Albuterol Nebulized [Ventolin 2.5 mg INHALATION RT-Q6H PRN 11/18/21 11/18/21 Nebulized] Cranberry Fruit Extract [Cranberry] 500 mg PO DAILY 11/18/21 11/18/21 Nirmatrelvir/Ritonavir [Paxlovid 1 dose PO BID 11/18/21 11/18/21 2X150 mg-100 mg (Eua)] diphenhydrAMINE [Benadryl] 25 mg PO HS 11/18/21 11/18/21 risperiDONE 0.5 mg PO TID 11/18/21 11/18/21 Allergies Allergy/AdvReac Type Severity Reaction Status Date / Time Iodine and Iodide Containing Allergy Rash/Hives Verified 11/18/21 16:07 Produc Tetanus Vaccines and Toxoid Allergy Swelling Verified 11/18/21 16:07 [Tetanus Vaccines & Toxoid] morphine AdvReac Nausea & Verified 11/18/21 16:07 Vomiting Review of Systems ROS Statement: Those systems with pertinent positive or pertinent negative responses have been documented in the HPI. Review of Systems: CONST: Denies fever EYES: Denies blurry vision ENT: Denies nasal congestion C/V: Denies Chest pain RESP: Endorses cough GI: Denies abdominal pain : Denies dysuria SKIN: Denies rash. MSK: Denies joint pain. NEURO: Endorses fatigue ROS Other: All systems not noted in ROS Statement are negative. Past Medical History Past Medical History: Diabetes Mellitus, GERD/Reflux, Hyperlipidemia, Hypertension Additional Past Medical History / Comment(s): back pain, arthritis History of Any Multi-Drug Resistant Organisms: None Reported Past Surgical History: Appendectomy, Back Surgery, Breast Surgery, Joint Replacement, Tonsillectomy Additional Past Surgical History / Comment(s): bilateral knee sx Past Anesthesia/Blood Transfusion Reactions: No Reported Reaction Past Psychological History: Anxiety, Depression Smoking Status: Former smoker Past Alcohol Use History: None Reported Past Drug Use History: None Reported - Past Family History Father Family Medical History: Myocardial Infarction ([place]) General Exam - General Exam Comments Initial Comments: General: Appears in no acute distress. HEAD: Normal with no signs of head trauma. EYES: PERRLA, EOMI, conjunctiva normal, no discharge. ENT: Hearing grossly intact, normal oropharynx. RESPIRATORY: Clear breath sounds bilaterally. No wheezes rales or rhonchi. Slight increased work of breathing. Hypoxia on room air down to 87% at rest lying evaluating her. Improved on 4 L nasal cannula. C/V: Regular rate and rhythm. S1 and S2 auscultated, no edema, peripheral pulses 2+ and intact throughout ABD: Abd is soft, nontender, nondistended EXT: Normal range of motion, no obvious deformity SKIN: No rashes or lesions observed on exposed skin. NEURO: Alert and oriented 4. Limitations: no limitations Course Vital Signs 11/18/21 11/18/21 11/18/21 12:29 12:46 14:49 Temperature 98.2 F Pulse Rate 88 87 81 Respiratory 22 20 20 Rate Blood Pressure 105/68 134/71 O2 Sat by Pulse 92 L 92 L 94 L Oximetry 11/18/21 18:15 Temperature Pulse Rate 88 Respiratory 18 Rate Blood Pressure 141/80 O2 Sat by Pulse 93 L Oximetry Medical Decision Making - Medical Decision Making Based on the patient's presentation and physical exam, I'm concerned for worseni ng COVID-19 infection. Cannot rule out other upper strength because this time. Patient also appears slightly dehydrated. Will be given a 1 L fluid bolus, started on steroids as well as albuterol inhaler. She is having hypoxic respiratory failure likely from the COVID-19 infection which is improved on 4 L nasal cannula. We'll obtain COVID-19 laboratory studies, EKG, cardiac screening. Patient was in agreement this plan. We'll repeat COVID-19 testing is with no formal tests in our system. We'll continue to monitor and continuous pulse oximetry as well as cardiac monitoring. Remainder the vital signs are within normal limits. She is afebrile. Patient's EKG showed no signs of acute ischemia. Patient did test positive for COVID-19. Laboratory studies otherwise remarkable for an elevated d-dimer at 3.05. Troponin is undetected. Patient has an elevated creatinine of 1.95 which is higher than her typical baseline. Urinalysis shows moderate leukocyte esterase as well as 17 WBCs. There are rare bacteria present. Potential for UTI. Chest x-ray does show bilateral pulmonary infiltrates concerning for COVID-19 pneumonia. I did patient and caregiver. Recommend we obtain a nuclear medicine ventilation perfusion scan to evaluate for PE, as the patient's kidney function is poor at this time secondary to [place] eye. There went agreement this plan. VQ scan was low probability of pulmonary embolism. I updated the patient as well as called her son to update him. Patient is resting comfortably on 4 L nasal cannula oxygen. We will continue management. Empirically started the patient on antibiotics at this time. We'll consult infectious disease as well as pulmonology. I spoke with the admitting physician, Dr. Reeves who was in agreement with this plan. Patient was admitted in serious condition for hypoxic respiratory failure likely secondary to COVID-19 pneumonia. We will continue antibiotics, steroids, and breathing treatments. - Lab Data Result diagrams: 11/18/21 13:07 11/18/21 13:07 Lab Results 11/18/21 11/18/21 11/18/21 Range/Units 13:07 13:07 13:07 WBC 5.8 (3.8-10.6) k/uL RBC 4.04 (3.80-5.40) m/uL Hgb 10.5 L (11.4-16.0) gm/dL Hct 35.1 (34.0-46.0) % MCV 86.9 (80.0-100.0) fL MCH 26.0 (25.0-35.0) pg MCHC 30.0 L (31.0-37.0) g/dL RDW 14.7 (11.5-15.5) % Plt Count 191 (150-450) k/uL MPV 8.7 Neutrophils % 62 % Lymphocytes % 27 % Monocytes % 4 % Eosinophils % 2 % Basophils % 0 % Neutrophils # 3.6 (1.3-7.7) k/uL Lymphocytes # 1.6 (1.0-4.8) k/uL Monocytes # 0.3 (0-1.0) k/uL Eosinophils # 0.1 (0-0.7) k/uL Basophils # 0.0 (0-0.2) k/uL Hypochromasia Marked PT 10.2 (9.0-12.0) sec INR 0.9 (<1.2) APTT 23.4 (22.0-30.0) sec D-Dimer 3.05 H (<0.60) mg/L FEU Sodium 138 (137-145) mmol/L Potassium 3.7 (3.5-5.1) mmol/L Chloride 105 (98-107) mmol/L Carbon Dioxide 27 (22-30) mmol/L Anion Gap 6 mmol/L BUN 16 (7-17) mg/dL Creatinine 1.95 H (0.52-1.04) mg/dL Est GFR (CKD-EPI)AfAm 27 (>60 ml/min/1.73 sqM) Est GFR (CKD-EPI)NonAf 23 (>60 ml/min/1.73 sqM) Glucose 183 H (74-99) mg/dL Plasma Lactic Acid [place] (0.7-2.0) mmol/L Calcium 8.0 L (8.4-10.2) mg/dL Magnesium 1.6 (1.6-2.3) mg/dL Ferritin 27.6 (10.0-291.0) ng/mL Total Bilirubin 0.3 (0.2-1.3) mg/dL AST 36 (14-36) U/L ALT 28 (4-34) U/L Alkaline Phosphatase 81 (38-126) U/L Lactate Dehydrogenase 326 (313-618) U/L Troponin I (0.000-0.034) ng/mL C-Reactive Protein 0.5 (<1.0) mg/dL Total Protein 6.0 L (6.3-8.2) g/dL Albumin 3.7 (3.5-5.0) g/dL Procalcitonin (0.02-0.09) ng/mL Urine Color Urine Appearance (Clear) Urine pH (5.0-8.0) Ur Specific [place] (1.001-1.035) Urine Protein (Negative) Urine Glucose (UA) (Negative) Urine Ketones (Negative) Urine Blood (Negative) Urine Nitrite (Negative) Urine Bilirubin (Negative) Urine Urobilinogen (<2.0) mg/dL Ur Leukocyte Esterase (Negative) Urine RBC (0-5) /hpf Urine WBC (0-5) /hpf Ur Squamous Epith Cells (0-4) /hpf Ur Transition Epith Cell (0-1) /hpf Urine Bacteria (None) /hpf Hyaline Casts (0-2) /lpf Urine Mucus (None) /hpf Coronavirus (PCR) (Not Detectd) 11/18/21 11/18/21 11/18/21 Range/Units 13:07 13:07 13:07 WBC (3.8-10.6) k/uL RBC (3.80-5.40) m/uL Hgb (11.4-16.0) gm/dL Hct (34.0-46.0) % MCV (80.0-100.0) fL MCH (25.0-35.0) pg MCHC (31.0-37.0) g/dL RDW (11.5-15.5) % Plt Count (150-450) k/uL MPV Neutrophils % % Lymphocytes % % Monocytes % % Eosinophils % % Basophils % % Neutrophils # (1.3-7.7) k/uL Lymphocytes # (1.0-4.8) k/uL Monocytes # (0-1.0) k/uL Eosinophils # (0-0.7) k/uL Basophils # (0-0.2) k/uL Hypochromasia PT (9.0-12.0) sec INR (<1.2) APTT (22.0-30.0) sec D-Dimer (<0.60) mg/L FEU Sodium (137-145) mmol/L Potassium (3.5-5.1) mmol/L Chloride (98-107) mmol/L Carbon Dioxide (22-30) mmol/L Anion Gap mmol/L BUN (7-17) mg/dL Creatinine (0.52-1.04) mg/dL Est GFR (CKD-EPI)AfAm (>60 ml/min/1.73 sqM) Est GFR (CKD-EPI)NonAf (>60 ml/min/1.73 sqM) Glucose (74-99) mg/dL Plasma Lactic Acid [place] 1.5 (0.7-2.0) mmol/L Calcium (8.4-10.2) mg/dL Magnesium (1.6-2.3) mg/dL Ferritin (10.0-291.0) ng/mL Total Bilirubin (0.2-1.3) mg/dL AST (14-36) U/L ALT (4-34) U/L Alkaline Phosphatase (38-126) U/L Lactate Dehydrogenase (313-618) U/L Troponin I (0.000-0.034) ng/mL C-Reactive Protein (<1.0) mg/dL Total Protein (6.3-8.2) g/dL Albumin (3.5-5.0) g/dL Procalcitonin 0.09 (0.02-0.09) ng/mL Urine Color Urine Appearance (Clear) Urine pH (5.0-8.0) Ur Specific [place] (1.001-1.035) Urine Protein (Negative) Urine Glucose (UA) (Negative) Urine Ketones (Negative) Urine Blood (Negative) Urine Nitrite (Negative) Urine Bilirubin (Negative) Urine Urobilinogen (<2.0) mg/dL Ur Leukocyte Esterase (Negative) Urine RBC (0-5) /hpf Urine WBC (0-5) /hpf Ur Squamous Epith Cells (0-4) /hpf Ur Transition Epith Cell (0-1) /hpf Urine Bacteria (None) /hpf Hyaline Casts (0-2) /lpf Urine Mucus (None) /hpf Coronavirus (PCR) Detected A (Not Detectd) 11/18/21 11/18/21 Range/Units 13:07 13:07 WBC (3.8-10.6) k/uL RBC (3.80-5.40) m/uL Hgb (11.4-16.0) gm/dL Hct (34.0-46.0) % MCV (80.0-100.0) fL MCH (25.0-35.0) pg MCHC (31.0-37.0) g/dL RDW (11.5-15.5) % Plt Count (150-450) k/uL MPV Neutrophils % % Lymphocytes % % Monocytes % % Eosinophils % % Basophils % % Neutrophils # (1.3-7.7) k/uL Lymphocytes # (1.0-4.8) k/uL Monocytes # (0-1.0) k/uL Eosinophils # (0-0.7) k/uL Basophils # (0-0.2) k/uL Hypochromasia PT (9.0-12.0) sec INR (<1.2) APTT (22.0-30.0) sec D-Dimer (<0.60) mg/L FEU Sodium (137-145) mmol/L Potassium (3.5-5.1) mmol/L Chloride (98-107) mmol/L Carbon Dioxide (22-30) mmol/L Anion Gap mmol/L BUN (7-17) mg/dL Creatinine (0.52-1.04) mg/dL Est GFR (CKD-EPI)AfAm (>60 ml/min/1.73 sqM) Est GFR (CKD-EPI)NonAf (>60 ml/min/1.73 sqM) Glucose (74-99) mg/dL Plasma Lactic Acid [place] (0.7-2.0) mmol/L Calcium (8.4-10.2) mg/dL Magnesium (1.6-2.3) mg/dL Ferritin (10.0-291.0) ng/mL Total Bilirubin (0.2-1.3) mg/dL AST (14-36) U/L ALT (4-34) U/L Alkaline Phosphatase (38-126) U/L Lactate Dehydrogenase (313-618) U/L Troponin I <0.012 (0.000-0.034) ng/mL C-Reactive Protein (<1.0) mg/dL Total Protein (6.3-8.2) g/dL Albumin (3.5-5.0) g/dL Procalcitonin (0.02-0.09) ng/mL Urine Color Yellow Urine Appearance Cloudy H (Clear) Urine pH 6.0 (5.0-8.0) Ur Specific [place] 1.019 (1.001-1.035) Urine Protein Trace H (Negative) Urine Glucose (UA) Negative (Negative) Urine Ketones Negative (Negative) Urine Blood Negative (Negative) Urine Nitrite Negative (Negative) Urine Bilirubin Negative (Negative) Urine Urobilinogen 2.0 (<2.0) mg/dL Ur Leukocyte Esterase Moderate H (Negative) Urine RBC 1 (0-5) /hpf Urine WBC 17 H (0-5) /hpf Ur Squamous Epith Cells 2 (0-4) /hpf Ur Transition Epith Cell <1 (0-1) /hpf Urine Bacteria Rare H (None) /hpf Hyaline Casts 36 H (0-2) /lpf Urine Mucus Occasional H (None) /hpf Coronavirus (PCR) (Not Detectd) - EKG Data -: EKG Interpreted by Me EKG Comments: 12-lead Electrocardiogram Interpretation Note EKG was reviewed and interpreted by myself. 12-lead ECG performed at 1401 is in terpreted by me as revealing normal sinus rhythm at a rate of 74 beats per minute. [place] is normal. [place] interval is 207 ms, QRS duration is 94 ms, QTc is 427 ms.. There were no ST or T wave abnormalities to suggest myocardial ischemia or injury. R wave progression across the precordium was satisfactory. By my interpretation this EKG is non-diagnostic for acute ischemia. Disposition Clinical Impression: Pneumonia due to COVID-19 virus, Acute respiratory failure with hypoxia, WILLIE (acute kidney injury), Dehydration Disposition: ADMITTED IP TO THIS HOSP Condition: Serious Time of Disposition: 15:00
[2021-11-18 14:11] LABS: Albumin 3.7 g/dL (3.5-5.0); C Reactive Protein 0.5 mg/dL (<1.0); Magnesium 1.6 mg/dL (1.6-2.3); Potassium 3.7 mmol/L (3.5-5.1); Total Bilirubin 0.3 mg/dL (0.2-1.3)
[2021-11-18 14:16] LABS: Basophils % (A) 0 %; Eosinophils # (A) 0.1 k/uL (0-0.7); Eosinophils % (A) 2 %; HCT 35.1 % (34.0-46.0); HGB 10.5 gm/dL (11.4-16.0); Hypochromasia Marked; Lymphocytes # (A) 1.6 k/uL (1.0-4.8); Lymphocytes % (A) 27 %; MCV 86.9 fL (80.0-100.0); Mean Platelet Volume 8.7; Monocytes # (A) 0.3 k/uL (0-1.0); Monocytes % (A) 4 %; Neutrophils # (A) 3.6 k/uL (1.3-7.7); Neutrophils % (A) 62 %; Platelet Count 191 k/uL (150-450); RBC 4.04 m/uL (3.80-5.40); RDW 14.7 % (11.5-15.5); WBC 5.8 k/uL (3.8-10.6)
[2021-11-18 14:22] LABS: INR 0.9 (<1.2); Partial Thromboplastin Time 23.4 sec (22.0-30.0); Prothrombin Time 10.2 sec (9.0-12.0)
[2021-11-18 14:28] LABS: Appearance,Urine Cloudy (Clear); Bacteria,Urine Rare /hpf; Bilirubin,Urine Negative (Negative); Blood,Urine Negative (Negative); Color,Urine Yellow; Glucose,Urine (UA) Negative (Negative); Hyaline Casts,Urine 36 /lpf (0-2); Ketones,Urine Negative (Negative); Leukocyte Esterase,Urine Moderate (Negative); Mucus,Urine Occasional /hpf; Nitrite,Urine Negative (Negative); Protein,Urine Trace (Negative); RBC,Urine 1 /hpf (0-5); Specific Gravity,Urine 1.019 (1.001-1.035); Squamous Epithelial Cell,Urine 2 /hpf (0-4); Transitional Epi Cells,Urine <1 /hpf (0-1); WBC,Urine 17 /hpf (0-5)
[2021-11-18] MEDS: DEXAMETHASONE SOD PHOSPHATE 10 MG/ML 1 ML VIAL IVP SCH (14:46)
--- NOTE | 2021-11-18 14:48 | XR ---
EXAMINATION TYPE: XR chest 1V portable DATE OF EXAM: 11/18/2021 COMPARISON: Chest x-ray 08/25/2021 HISTORY: Covid 19 pneumonia, shortness of breath TECHNIQUE: Single frontal view of the chest is obtained. FINDINGS: There is patchy density suspected within the mid lungs, no evident pneumothorax or pleural effusion. The cardiac silhouette size is stable accounting for technique. There is eventration of th e right hemidiaphragm. Patient is rotated. Aorta is dense. Interstitium is increased. The osseous st ructures are intact. IMPRESSION: Correlate for pneumonia. Follow-up PA and lateral chest x-ray for better evaluation.
[2021-11-18] MEDS ORDERED: AZITHROMYCIN 500 MG in SODIUM CHLORIDE 0.9% 250 ML IVPB STA (15:03)
[2021-11-18] MEDS ORDERED: SODIUM CHLORIDE 0.9% 1,000 ML IV STA (15:18)
[2021-11-18] MEDS ORDERED: NALOXONE 0.4 MG/ML 1 ML VIAL IV PRN (15:28)
--- NOTE | 2021-11-18 17:28 | NM ---
EXAMINATION TYPE: NM pul perfusion DATE OF EXAM: 11/18/2021 COMPARISON: NONE HISTORY: Chest pain Following administration of 5 mCi Tc 99m MAA. Images obtained post injection. FINDINGS: There are small subsegmental perfusion defects at the right posterior lung base. These are nonsegment al and could relate to pleural fluid or reaction. I see no segmental type defect. IMPRESSION: There is a low probability of pulmonary embolism.
[2021-11-18 18:52] LABS: Ferritin 27.6 ng/mL (10.0-291.0)
[2021-11-18] MEDS: CHOLECALCIFEROL 25 MCG (1000 IU) TABLET PO SCH (20:33)
[2021-11-18] MEDS: ASCORBIC ACID 500 MG TAB PO SCH (20:33)
[2021-11-18] MEDS: diphenhydrAMINE 25 MG CAP PO SCH (21:00)
[2021-11-18] MEDS: MELATONIN 5 MG TABLET PO SCH (21:01)
[2021-11-18] MEDS: risperiDONE 0.5 MG TAB PO SCH (21:01)
[2021-11-18] MEDS: HEPARIN SODIUM,PORCINE/PF 5,000 UNIT/0.5 ML SYRINGE SQ SCH (21:01)
--- NOTE | 2021-11-18 22:11 | P.CONS ---
History of Present Illness - Reason for Consult Consult date: 11/18/21 covid 19 pneumonia Requesting physician: Ramon Richards - Chief Complaint Increasing shortness of breath since last - History of Present Illness Patient is a 86-year-old female with a past medical he significant for diabetes mellitus hypertension gastroesophageal reflux disease apparently started getting sick last that is about 8 days ago symptom has been mostly increasing shortness of breath, patient is also complaining of cough productive of some greenish sputum over the last few days patient denies any pleuritic chest pain has been complaining generalized fatigue decreased appetite nausea but no vomiting no abdominal pain did have some diarrhea and apparently that has improved patient was found by the daughter today to be very fatigued and the patient was brought to the hospital on arrival to the ER patient was afebrile patient was hypoxic with O2 sat of 92% currently on 4 L nasal cannula patient had normal white count no lymphopenia D-dimer was mildly elevated as well as a creatinine 1.95 limits of the normal CRP 0.5 urine has been mildly positive did have positive COVID test patient did have a chest x-ray correlate for pneumonia with patchy densities suspected within the mid lungs V/Q scan has been ordered and currently pending, patient has been admitted to hospital infectious disease was consulted for further management Review of Systems Positive point has been mentioned in the HPI rest of the systems are negative Past Medical History Past Medical History: Diabetes Mellitus, GERD/Reflux, Hyperlipidemia, Hypertension Additional Past Medical History / Comment(s): back pain, arthritis History of Any Multi-Drug Resistant Organisms: None Reported Past Surgical History: Appendectomy, Back Surgery, Breast Surgery, Joint Replacement, Tonsillectomy Additional Past Surgical History / Comment(s): bilateral knee sx Past Anesthesia/Blood Transfusion Reactions: No Reported Reaction Past Psychological History: Anxiety, Depression Smoking Status: Former smoker Past Alcohol Use History: None Reported Past Drug Use History: None Reported - Past Family History Father Family Medical History: Myocardial Infarction ([place]) Medications and Allergies Home Medications Medication Instructions Recorded Confirmed Type Omeprazole 20 mg PO DAILY 02/04/16 11/18/21 History Citalopram Hydrobromide [CeleXA] 40 mg PO DAILY 10/29/16 11/18/21 History ALPRAZolam [Xanax] 1 mg PO BID PRN 08/25/21 11/18/21 History Melatonin [Melatonin ER] 10 mg PO HS 08/25/21 11/18/21 History Pioglitazone [Actos] 15 mg PO DAILY 08/25/21 11/18/21 History buPROPion HCL [Wellbutrin XL] 150 mg PO DAILY 08/25/21 11/18/21 History fentaNYL 75MCG/HR PATCH [Duragesic 1 patch TRANSDERM Q72H 08/25/21 11/18/21 History 75MCG/HR] Albuterol Nebulized [Ventolin 2.5 mg INHALATION RT-Q6H PRN 11/18/21 11/18/21 History Nebulized] Cranberry Fruit Extract [Cranberry] 500 mg PO DAILY 11/18/21 11/18/21 History Nirmatrelvir/Ritonavir [Paxlovid 1 dose PO BID 11/18/21 11/18/21 History 2X150 mg-100 mg (Eua)] diphenhydrAMINE [Benadryl] 25 mg PO HS 11/18/21 11/18/21 History risperiDONE 0.5 mg PO TID 11/18/21 11/18/21 History Allergies Allergy/AdvReac Type Severity Reaction Status Date / Time Iodine and Iodide Containing Allergy Rash/Hives Verified 11/18/21 16:07 Produc Tetanus Vaccines and Toxoid Allergy Swelling Verified 11/18/21 16:07 [Tetanus Vaccines & Toxoid] morphine AdvReac Nausea & Verified 11/18/21 16:07 Vomiting Physical Exam Vitals: Vital Signs Temp Pulse Resp BP Pulse Ox 11/18/21 14:49 81 20 134/71 94 L 11/18/21 12:46 87 20 92 L 11/18/21 12:29 98.2 F 88 22 105/68 92 L Intake and Output 11/18/21 11/18/21 11/18/21 06:59 14:59 22:59 Other: Weight 65.317 kg GENERAL DESCRIPTION: Elderly female lying in bed, no distress. No tachypnea or accessory muscle of respiration use. HEENT: Shows Pallor , no scleral icterus. Oral mucous membrane is dry. No pharyngeal erythema or thrush NECK: Trachea central, no thyromegaly. LUNGS: Unlabored breathing. Decreased intensity of breath sounds, No wheeze or crackle. HEART: S1, S2, regular rate and rhythm. No loud murmur ABDOMEN: Soft, no tenderness , guarding or rigidity, no organomegaly EXTREMITIES: No edema of feet. SKIN: No rash, no masses palpable. NEUROLOGICAL: The patient is awake, alert, oriented x3, mood and affect normal. Results CBC & Chem 7: 11/19/21 07:48 11/19/21 07:56 Labs: Abnormal Lab Results - Last 24 Hours (Table) 11/18/21 11/18/21 11/18/21 Range/Units 13:07 13:07 13:07 Hgb 10.5 L (11.4-16.0) gm/dL MCHC 30.0 L (31.0-37.0) g/dL D-Dimer 3.05 H (<0.60) mg/L FEU Creatinine 1.95 H (0.52-1.04) mg/dL Glucose 183 H (74-99) mg/dL Calcium 8.0 L (8.4-10.2) mg/dL Total Protein 6.0 L (6.3-8.2) g/dL Urine Appearance (Clear) Urine Protein (Negative) Ur Leukocyte Esterase (Negative) Urine WBC (0-5) /hpf Urine Bacteria (None) /hpf Hyaline Casts (0-2) /lpf Urine Mucus (None) /hpf Coronavirus (PCR) (Not Detectd) 11/18/21 11/18/21 Range/Units 13:07 13:07 Hgb (11.4-16.0) gm/dL MCHC (31.0-37.0) g/dL D-Dimer (<0.60) mg/L FEU Creatinine (0.52-1.04) mg/dL Glucose (74-99) mg/dL Calcium (8.4-10.2) mg/dL Total Protein (6.3-8.2) g/dL Urine Appearance Cloudy H (Clear) Urine Protein Trace H (Negative) Ur Leukocyte Esterase Moderate H (Negative) Urine WBC 17 H (0-5) /hpf Urine Bacteria Rare H (None) /hpf Hyaline Casts 36 H (0-2) /lpf Urine Mucus Occasional H (None) /hpf Coronavirus (PCR) Detected A (Not Detectd) Assessment and Plan (1) Pneumonia due to COVID-19 virus Current Visit: Yes Status: Acute Code(s): U07.1 - COVID-19; J12.82 - PNEUMONIA DUE TO CORONAVIRUS DISEASE 2019 SNOMED Code(s): 854170450174048633 Plan: 1patient presented to hospital with increasing shortness of breath and hypoxemia this patient did have evidence of pneumonia secondary to COVID-19 and a question of possible secondary bacterial pneumonia unfortunately today is her day 8 of symptom onset and would not qualify for remdesivir per [facility] policy. Patient did have a positive UA and a possible component of urinary tract infection 2we will check procalcitonin level and obtain sputum for gram stain and culture 3continue with the dexamethasone Heparin zinc and ascorbic acid 4continue with Rocephin while waiting for the work-up to complete 5droplet isolation and respiratory support We will follow on clinical condition and cultures to further adjust medication if needed Thank you for this consultation will follow this patient along with you Time with Patient: Greater than 30
[2021-11-19] MEDS ORDERED: DEXTROSE 50% SYRINGE 50 ML IVP PRN ×2 (06:34)
[2021-11-19] MEDS: CITALOPRAM HYDROBROMIDE 20 MG TAB PO SCH (08:12)
[2021-11-19] MEDS: ASCORBIC ACID 500 MG TAB PO SCH (08:12)
[2021-11-19] MEDS: INSULIN ASPART (NovoLOG) 100 UNIT/ML VIAL SQ SCH ×4 (08:12→21:04)
[2021-11-19] MEDS: PANTOPRAZOLE 40 MG TABLET PO SCH (08:12)
[2021-11-19] MEDS: HEPARIN SODIUM,PORCINE/PF 5,000 UNIT/0.5 ML SYRINGE SQ SCH ×2 (08:12→20:17)
[2021-11-19] MEDS: CHOLECALCIFEROL 25 MCG (1000 IU) TABLET PO SCH (08:12)
[2021-11-19] MEDS: DEXAMETHASONE SOD PHOSPHATE 10 MG/ML 1 ML VIAL IVP SCH (08:13)
[2021-11-19] MEDS: buPROPion XL 150 MG TAB.ER.24H PO SCH (08:13)
[2021-11-19 08:14] LABS: Glucose,Whole Blood 220 mg/dL (70-110)
[2021-11-19] MEDS: risperiDONE 0.5 MG TAB PO SCH ×3 (08:14→21:04)
[2021-11-19] MEDS: PIOGLITAZONE 15 MG TAB PO SCH (08:14)
[2021-11-19] MEDS: ALPRAZolam 1 MG TAB PO PRN ×2 (08:24→20:17)
[2021-11-19] MEDS: ALBUTEROL HFA INHALER INHALATION PRN ×2 (08:57→12:15)
[2021-11-19] MEDS: AZITHROMYCIN 500 MG in SODIUM CHLORIDE 0.9% 250 ML IVPB SCH (09:23)
[2021-11-19 11:19] LABS: Glucose,Whole Blood 279 mg/dL (70-110)
[2021-11-19 12:04] LABS: HCT 31.6 % (37.2-46.3); HGB 9.1 g/dL (12.0-15.0); MCH 25.4 pg (27.0-32.0); MCHC 28.8 g/dL (32.0-37.0); MCV 88.3 fL (80.0-97.0); Mean Platelet Volume 12.2 fL (9.5-12.2); NRBC Per 100 WBC 0 /100 WBCS (0.0-0.0); Platelet Count 188 X 10*3/uL (140-440); RBC 3.58 X 10*6/uL (4.10-5.20); WBC 9.26 X 10*3/uL (4.50-10.00)
[2021-11-19 12:18] LABS: Basophils # (A) 0.01 X 10*3/uL (0.00-0.10); Basophils % (A) 0.1 %; Eosinophils # (A) 0 X 10*3/uL (0.04-0.35); Eosinophils % (A) 0 %; Immature Grans, Automated 0.5 %; Lymphocytes # (A) 3.16 X 10*3/uL (0.90-5.00); Lymphocytes % (A) 34.1 %; Monocytes # (A) 0.14 X 10*3/uL (0.20-1.00); Monocytes % (A) 1.5 %; Neutrophils % (A) 63.8 %
--- NOTE | 2021-11-19 12:30 | P.CNPUL ---
History of Present Illness Consult date: 11/19/21 Requesting physician: Ramon Richards Chief complaint: COVID-19 pneumonia, cough, shortness of breath History of present illness: 86-year-old female patient with past medical history of hypertension, hyperlipidemia, diabetes mellitus type 2, anxiety, depression former smoker, who came into the emergency department on 11/18/2021 with symptoms of generalized fatigue, cough, greenish mucus production. Patient is vaccinated and boosted against COVID-19. She states last week on (9 days ago), patient was playing cards with her friends, and the next day she received a phone call from her friend, who came down with COVID. Patient also started having symptoms the next day on . She took 2 home tasks and tested positive on Sunday and of this week. Patient denied any chest pain, abdominal pain, no nausea vomiting or diarrhea, she has had reduced appetite. No fevers. She was started on Paxlovid outpatient on 11/17/2021. The next day on 11/18/2021 she was brought in by her daughter to the emergency department related to generalized weakness, fatigue, and concern of worsening infection. Chest x-ray showing patchy densities within the mid lungs. EKG showed normal sinus. Lab work showed positive COVID-19 PCR test, white blood cell count of 5.8, hemoglobin of 10.5, d-dimer of 3.05, VQ scan showed low probability of pulmonary embolism. Electrolytes were within normal limits, BUN was 16 and creatinine is 1.95, LFTs were within normal limits, LDH is 326, troponin is less than 0.012, CRP is 0.5, for A LEVEL IS 0.09, urinalysis showed pyuria with 17 leukocytes, moderate leuks, patient was started on azithromycin and Rocephin with a concern of secondary bacterial infection. Urine culture is pending. She was given gentle IV hydration and started on prophylactic anticoagulation and Decadron 6 g daily. Review of Systems All systems: negative Constitutional: Reports fatigue, Reports lethargy, Reports malaise, Reports weakness, Denies chills Eyes: denies blurred vision, denies pain Ears, nose, mouth and throat: Denies headache, Denies sore throat Cardiovascular: Denies chest pain, Denies shortness of breath Respiratory: Reports cough Gastrointestinal: Denies abdominal pain, Denies diarrhea, Denies nausea, Denies vomiting Genitourinary: Denies dysuria, Denies hematuria Musculoskeletal: Denies myalgias Integumentary: Denies pruritus, Denies rash Neurological: Denies numbness, Denies weakness Psychiatric: Denies anxiety, Denies depression Endocrine: Denies fatigue, Denies weight change Past Medical History Past Medical History: Diabetes Mellitus, GERD/Reflux, Hyperlipidemia, Hyperten guero Additional Past Medical History / Comment(s): back pain, arthritis History of Any Multi-Drug Resistant Organisms: None Reported Past Surgical History: Appendectomy, Back Surgery, Breast Surgery, Joint Replacement, Tonsillectomy Additional Past Surgical History / Comment(s): bilateral knee sx Past Anesthesia/Blood Transfusion Reactions: No Reported Reaction Past Psychological History: Anxiety, Depression Smoking Status: Former smoker Past Alcohol Use History: None Reported Past Drug Use History: None Reported - Past Family History Father Family Medical History: Myocardial Infarction ([place]) Medications and Allergies Home Medications Medication Instructions Recorded Confirmed Type Omeprazole 20 mg PO DAILY 02/04/16 11/18/21 History Citalopram Hydrobromide [CeleXA] 40 mg PO DAILY 10/29/16 11/18/21 History ALPRAZolam [Xanax] 1 mg PO BID PRN 08/25/21 11/18/21 History Melatonin [Melatonin ER] 10 mg PO HS 08/25/21 11/18/21 History Pioglitazone [Actos] 15 mg PO DAILY 08/25/21 11/18/21 History buPROPion HCL [Wellbutrin XL] 150 mg PO DAILY 08/25/21 11/18/21 History fentaNYL 75MCG/HR PATCH [Duragesic 1 patch TRANSDERM Q72H 08/25/21 11/18/21 History 75MCG/HR] Albuterol Nebulized [Ventolin 2.5 mg INHALATION RT-Q6H PRN 11/18/21 11/18/21 History Nebulized] Cranberry Fruit Extract [Cranberry] 500 mg PO DAILY 11/18/21 11/18/21 History Nirmatrelvir/Ritonavir [Paxlovid 1 dose PO BID 11/18/21 11/18/21 History 2X150 mg-100 mg (Eua)] diphenhydrAMINE [Benadryl] 25 mg PO HS 11/18/21 11/18/21 History risperiDONE 0.5 mg PO TID 11/18/21 11/18/21 History Allergies Allergy/AdvReac Type Severity Reaction Status Date / Time Iodine and Iodide Containing Allergy Rash/Hives Verified 11/18/21 16:07 Produc Tetanus Vaccines and Toxoid Allergy Swelling Verified 11/18/21 16:07 [Tetanus Vaccines & Toxoid] morphine AdvReac Nausea & Verified 11/18/21 16:07 Vomiting Physical Exam Vitals: Vital Signs Temp Pulse Pulse Resp BP BP Pulse Ox 11/19/21 10:00 98.1 F 70 130/76 92 L 11/19/21 08:00 97.6 F 87 146/73 93 L 11/19/21 02:40 98.0 F 73 18 149/79 96 11/18/21 22:00 98 F 69 16 126/72 95 11/18/21 19:53 98.2 F 78 18 135/72 96 11/18/21 18:15 88 18 141/80 93 L 11/18/21 14:49 81 20 134/71 94 L 11/18/21 12:46 87 20 92 L 11/18/21 12:29 98.2 F 88 22 105/68 92 L Intake and Output 11/18/21 11/19/21 11/19/21 22:59 06:59 14:59 Intake Total 300 Balance 300 Intake: Intake, IV Titration 300 Amount Azithromycin 500 mg In 250 Sodium Chloride 0.9% 250 ml @ 250 mls/hr IVPB DAILY [facility] Rx#:[id number] cefTRIAXone 2 gm In 50 Sodium Chloride 0.9% 50 ml @ 100 mls/hr IVPB Q24HR [facility] Rx#:[id number] Other: Voiding Method Bedside Commode # Voids 1 Weight 65.317 kg GENERAL EXAM: Alert, very pleasant, 86-year-old female on 4 L of oxygen satting 93% comfortable in no apparent distress. HEAD: Normocephalic/atraumatic. EYES: Normal reaction of pupils, equal size. Conjunctiva pink, sclera white. NOSE: Clear with pink turbinates. THROAT: No erythema or exudates. NECK: No masses, no JVD, no thyroid enlargement, no adenopathy. CHEST: No chest wall deformity. Symmetrical expansion. LUNGS: Equal air entry with no crackles, wheeze, rhonchi or dullness. CVS: Regular rate and rhythm, normal S1 and S2, no gallops, no murmurs, no rubs ABDOMEN: Soft, nontender. No hepatosplenomegaly, normal bowel sounds, no guarding or rigidity. EXTREMITIES: No clubbing, no edema, no cyanosis, 2+ pulses and upper and lower extremities. MUSCULOSKELETAL: Muscle strength and tone normal. SPINE: No scoliosis or deformity SKIN: No rashes CENTRAL NERVOUS SYSTEM: Alert and oriented -3. No focal deficits, tone is normal in all 4 extremities. PSYCHIATRIC: Alert and oriented -3. Appropriate affect. Intact judgment and insight. Results - Laboratory Findings CBC and BMP: 11/19/21 07:48 11/18/21 13:07 PT/INR, D-dimer PT 10.2 sec (9.0-12.0) 11/18/21 13:07 INR 0.9 (<1.2) 11/18/21 13:07 D-Dimer 2.96 mg/L FEU (<0.60) H 11/19/21 07:56 Abnormal lab findings: Abnormal Labs 11/18/21 11/18/21 11/18/21 13:07 13:07 13:07 RBC Hgb 10.5 L Hct MCH MCHC 30.0 L RDW D-Dimer 3.05 H Creatinine 1.95 H Glucose 183 H POC Glucose (mg/dL) Calcium 8.0 L Total Protein 6.0 L Urine Appearance Urine Protein Ur Leukocyte Esterase Urine WBC Urine Bacteria Hyaline Casts Urine Mucus Coronavirus (PCR) 11/18/21 11/18/21 11/19/21 13:07 13:07 07:48 RBC 3.58 L Hgb 9.1 L Hct 31.6 L MCH 25.4 L MCHC 28.8 L RDW 15.0 H D-Dimer Creatinine Glucose POC Glucose (mg/dL) Calcium Total Protein Urine Appearance Cloudy H Urine Protein Trace H Ur Leukocyte Esterase Moderate H Urine WBC 17 H Urine Bacteria Rare H Hyaline Casts 36 H Urine Mucus Occasional H Coronavirus (PCR) Detected A 11/19/21 11/19/21 11/19/21 07:56 08:12 11:18 RBC Hgb Hct MCH MCHC RDW D-Dimer 2.96 H Creatinine Glucose POC Glucose (mg/dL) 220 H 279 H Calcium Total Protein Urine Appearance Urine Protein Ur Leukocyte Esterase Urine WBC Urine Bacteria Hyaline Casts Urine Mucus Coronavirus (PCR) - Diagnostic Findings Chest x-ray: report reviewed, image reviewed Additional studies: VQ scan, EKG reviewed Assessment and Plan Plan: Assessment: #1. Acute hypoxic respiratory failure related to acute COVID-19 infection. Patient presented to the emergency department with 8-days of symptom onset, status post completed vaccination and a booster against Covid 19 #2. Mildly elevated d-dimer, VQ scan showed low probability for PE, on prophylactic and Tequin remission #3. Possible urinary tract infection, with evidence of pyuria #4. Acute kidney injury #5. Dehydration #6. Hypertension #7. Hyperlipidemia #8. Diabetes mellitus type 2 #9. Anxiety and depression #10. Former smoker #11. Osteoarthritis Plan: Continue Decadron 6 mg daily Continue prophylactic anticoagulation and multivitamins Patient continues on antibiotics, until the urine culture finalizes Serum procrastinator level was noted Inflammatory markers were noted Continue gentle IV hydration Continue follow patient's clinical course I have personally seen and examined the patient, performed the documentation and the assessment and plan as written. Number of minutes spent on the visit: [15] Time with Patient: Greater than 30
[2021-11-19 12:35] VITALS: BMI 28.1
[2021-11-19 13:50] LABS: C Reactive Protein 4.6 mg/dL (0.00-0.80)
[2021-11-19 13:52] LABS: African American GFR (CKD) 49.2 (60.0-200.0); Anion Gap 12.1 mmol/L (10.00-18.00); BUN/Creat Ratio 14.87 Ratio (12.00-20.00); Blood Urea Nitrogen 17.4 mg/dL (9.0-27.0); Calcium 7.8 mg/dL (8.7-10.3); Carbon Dioxide 19.9 mmol/L (20.0-27.5); Ferritin 34.7 ng/mL (10.0-291.0); Non-African American GFR(CKD) 42.5 (60.0-200.0); Potassium 4.7 mmol/L (3.5-5.5)
[2021-11-19 16:28] LABS: Glucose,Whole Blood 266 mg/dL (70-110)
--- NOTE | 2021-11-19 18:26 | P.HPIM ---
History of Present Illness H&P Date: 11/18/21 Chief Complaint: Shortness of breath/weakness 86-year-old female with a past medical he significant for diabetes mellitus hypertension gastroesophageal reflux disease apparently started getting sick last that is about 8 days ago symptom has been mostly increasing shortness of breath, patient is also complaining of cough productive of some greenish sputum over the last few days patient denies any pleuritic chest pain has been complaining generalized fatigue decreased appetite nausea but no vomiting no abdominal pain did have some diarrhea and apparently that has improved patient was found by the daughter today to be very fatigued and the patient was brought to the hospital on arrival to the ER patient was afebrile patient was hypoxic with O2 sat of 92% currently on 4 L nasal cannula patient had normal white count no lymphopenia D-dimer was mildly elevated as well as a creatinine 1.95 limits of the normal CRP 0.5 urine has been mildly positive did have positive COVID test patient did have a chest x-ray correlate for pneumonia with patchy densities suspected within the mid lungs V/Q scan has been ordered and currently pending, patient has been admitted to hospital infectious disease was consulted for further management patient did have evidence of pneumonia secondary to COVID-19 and a question of possible secondary bacterial pneumonia Review of Systems REVIEW OF SYSTEMS: CONSTITUTIONAL: No fever, no malaise, no fatigue. HEENT: No recent visual problems or hearing problems. Denied any sore throat. CARDIOVASCULAR: No chest pain, orthopnea, PND, no palpitations, no syncope. PULMONARY: No shortness of breath, no cough, no hemoptysis. GASTROINTESTINAL: No diarrhea, no nausea, no vomiting, no abdominal pain. NEUROLOGICAL: No headaches, no weakness, no numbness. HEMATOLOGICAL: Denies any bleeding or petechiae. GENITOURINARY: Denies any burning micturition, frequency, or urgency. MUSCULOSKELETAL/RHEUMATOLOGICAL: Denies any joint pain, swelling, or any muscle pain. ENDOCRINE: Denies any polyuria or polydipsia. The rest of the 14-point review of systems is negative. Past Medical History Past Medical History: Diabetes Mellitus, GERD/Reflux, Hyperlipidemia, Hypertension Additional Past Medical History / Comment(s): back pain, arthritis History of Any Multi-Drug Resistant Organisms: None Reported Past Surgical History: Appendectomy, Back Surgery, Breast Surgery, Joint Replacement, Tonsillectomy Additional Past Surgical History / Comment(s): bilateral knee sx Past Anesthesia/Blood Transfusion Reactions: No Reported Reaction Past Psychological History: Anxiety, Depression Smoking Status: Former smoker Past Alcohol Use History: None Reported Past Drug Use History: None Reported - Past Family History Father Family Medical History: Myocardial Infarction ([place]) Medications and Allergies Home Medications Medication Instructions Recorded Confirmed Type Omeprazole 20 mg PO DAILY 02/04/16 11/18/21 History Citalopram Hydrobromide [CeleXA] 40 mg PO DAILY 10/29/16 11/18/21 History ALPRAZolam [Xanax] 1 mg PO BID PRN 08/25/21 11/18/21 History Melatonin [Melatonin ER] 10 mg PO HS 08/25/21 11/18/21 History Pioglitazone [Actos] 15 mg PO DAILY 08/25/21 11/18/21 History buPROPion HCL [Wellbutrin XL] 150 mg PO DAILY 08/25/21 11/18/21 History fentaNYL 75MCG/HR PATCH [Duragesic 1 patch TRANSDERM Q72H 08/25/21 11/18/21 History 75MCG/HR] Albuterol Nebulized [Ventolin 2.5 mg INHALATION RT-Q6H PRN 11/18/21 11/18/21 History Nebulized] Cranberry Fruit Extract [Cranberry] 500 mg PO DAILY 11/18/21 11/18/21 History Nirmatrelvir/Ritonavir [Paxlovid 1 dose PO BID 11/18/21 11/18/21 History 2X150 mg-100 mg (Eua)] diphenhydrAMINE [Benadryl] 25 mg PO HS 11/18/21 11/18/21 History risperiDONE 0.5 mg PO TID 11/18/21 11/18/21 History Allergies Allergy/AdvReac Type Severity Reaction Status Date / Time Iodine and Iodide Containing Allergy Rash/Hives Verified 11/18/21 16:07 Produc Tetanus Vaccines and Toxoid Allergy Swelling Verified 11/18/21 16:07 [Tetanus Vaccines & Toxoid] morphine AdvReac Nausea & Verified 11/18/21 16:07 Vomiting Physical Exam Vitals: Vital Signs Temp Pulse Resp BP Pulse Ox 11/18/21 18:15 88 18 141/80 93 L 11/18/21 14:49 81 20 134/71 94 L 11/18/21 12:46 87 20 92 L 11/18/21 12:29 98.2 F 88 22 105/68 92 L Intake and Output 11/18/21 11/18/21 11/18/21 06:59 14:59 22:59 Other: Weight 65.317 kg PHYSICAL EXAMINATION: GENERAL: The patient is alert and oriented x3, not in any acute distress. Well developed, well nourished. HEENT: Pupils are round and equally reacting to light. EOMI. No scleral icterus. No conjunctival pallor. Normocephalic, atraumatic. No pharyngeal erythema. No thyromegaly. CARDIOVASCULAR: S1 and S2 present. No murmurs, rubs, or gallops. PULMONARY: Chest is clear to auscultation, no wheezing or crackles. ABDOMEN: Soft, nontender, nondistended, normoactive bowel sounds. No palpable organomegaly. MUSCULOSKELETAL: No joint swelling or deformity. EXTREMITIES: No cyanosis, clubbing, or pedal edema. NEUROLOGICAL: Gross neurological examination did not reveal any focal deficits. SKIN: No rashes. Results CBC & Chem 7: 11/19/21 07:48 11/19/21 07:56 Labs: Abnormal Lab Results - Last 24 Hours (Table) 11/18/21 11/18/21 11/18/21 Range/Units 13:07 13:07 13:07 Hgb 10.5 L (11.4-16.0) gm/dL MCHC 30.0 L (31.0-37.0) g/dL D-Dimer 3.05 H (<0.60) mg/L FEU Creatinine 1.95 H (0.52-1.04) mg/dL Glucose 183 H (74-99) mg/dL Calcium 8.0 L (8.4-10.2) mg/dL Total Protein 6.0 L (6.3-8.2) g/dL Urine Appearance (Clear) Urine Protein (Negative) Ur Leukocyte Esterase (Negative) Urine WBC (0-5) /hpf Urine Bacteria (None) /hpf Hyaline Casts (0-2) /lpf Urine Mucus (None) /hpf Coronavirus (PCR) (Not Detectd) 11/18/21 11/18/21 Range/Units 13:07 13:07 Hgb (11.4-16.0) gm/dL MCHC (31.0-37.0) g/dL D-Dimer (<0.60) mg/L FEU Creatinine (0.52-1.04) mg/dL Glucose (74-99) mg/dL Calcium (8.4-10.2) mg/dL Total Protein (6.3-8.2) g/dL Urine Appearance Cloudy H (Clear) Urine Protein Trace H (Negative) Ur Leukocyte Esterase Moderate H (Negative) Urine WBC 17 H (0-5) /hpf Urine Bacteria Rare H (None) /hpf Hyaline Casts 36 H (0-2) /lpf Urine Mucus Occasional H (None) /hpf Coronavirus (PCR) Detected A (Not Detectd) Microbiology - Last 24 Hours (Table) 11/18/21 13:07 Urine Culture - Preliminary Urine,Voided Assessment and Plan Assessment: 1. COVID-19 related pneumonia; today is her day 8 of symptom onset and would not qualify for remdesivir per [facility] policy. continue with the dexamethasone Heparin zinc and ascorbic acid droplet isolation and respiratory support 2. Secondary bacterial pneumonia we will check procalcitonin level and obtain sputum for gram stain and culture continue with Rocephin per ID recommendations 3. UTI; patient has been placed on IV Rocephin and azithromycin; further recommendations once urine culture is available 4. Dyspnea/elevated d-dimer; patient has a baseline creatinine of 1.9 and unable to undergo CTA chest to rule out PE; we will scheduled for VQ scan; continue with subcu heparin 5. Acute renal injury; creatinine at 1.95; we will start patient on IV fluid hydration and monitor renal function and electrolytes; avoid nephrotoxins and hypotension 6. Hypertension; currently not on any antihypertensive therapy; monitor blood pressure closely and make adjustments; not on any statins 7. Diabetes mellitus; Actos 15 mg daily; monitor Accu-Cheks before meals and at bedtime with insulin sliding scale DVT prophylaxis; SCDs/subcu heparin CODE STATUS; DO NOT RESUSCITATE
--- NOTE | 2021-11-19 18:28 | P.PN ---
Subjective Progress Note Date: 11/19/21 86-year-old female with a past medical he significant for diabetes mellitus hypertension gastroesophageal reflux disease apparently started getting sick last that is about 8 days ago symptom has been mostly increasing shortness of breath, patient is also complaining of cough productive of some greenish sputum over the last few days patient denies any pleuritic chest pain has been complaining generalized fatigue decreased appetite nausea but no vomiting no abdominal pain did have some diarrhea and apparently that has improved patient was found by the daughter today to be very fatigued and the patient was brought to the hospital on arrival to the ER patient was afebrile patient was hypoxic with O2 sat of 92% currently on 4 L nasal cannula patient had normal white count no lymphopenia D-dimer was mildly elevated as well as a creatinine 1.95 limits of the normal CRP 0.5 urine has been mildly positive did have positive COVID test patient did have a chest x-ray correlate for pneumonia with patchy densities suspected within the mid lungs V/Q scan has been ordered and currently pending, patient has been admitted to hospital infectious disease was consulted for further management Objective - Vital Signs Vital signs: Vital Signs Temp 98.1 F 11/19/21 10:00 Pulse 70 11/19/21 10:00 Resp 18 11/19/21 02:40 BP 130/76 11/19/21 10:00 Pulse Ox 92 L 11/19/21 10:00 FiO2 Intake & Output 11/18/21 11/19/21 11/19/21 18:59 06:59 18:59 Intake Total 300 Balance 300 Weight 65.317 kg 65.317 kg Intake: Intake, IV Titration 300 Amount Azithromycin 500 mg In 250 Sodium Chloride 0.9% 250 ml @ 250 mls/hr IVPB DAILY [facility] Rx#:[id number] cefTRIAXone 2 gm In 50 Sodium Chloride 0.9% 50 ml @ 100 mls/hr IVPB Q24HR [facility] Rx#:[id number] Other: Voiding Method Bedside Commode # Voids 1 - Exam PHYSICAL EXAMINATION: GENERAL: The patient is alert and oriented x3, not in any acute distress. Well developed, well nourished. HEENT: Pupils are round and equally reacting to light. EOMI. No scleral icterus. No conjunctival pallor. Normocephalic, atraumatic. No pharyngeal erythema. No thyromegaly. CARDIOVASCULAR: S1 and S2 present. No murmurs, rubs, or gallops. PULMONARY: Chest is clear to auscultation, no wheezing or crackles. ABDOMEN: Soft, nontender, nondistended, normoactive bowel sounds. No palpable organomegaly. MUSCULOSKELETAL: No joint swelling or deformity. EXTREMITIES: No cyanosis, clubbing, or pedal edema. NEUROLOGICAL: Gross neurological examination did not reveal any focal deficits. SKIN: No rashes. - Labs CBC & Chem 7: 11/19/21 07:48 11/19/21 07:56 Labs: Abnormal Lab Results - Last 24 Hours (Table) 11/18/21 11/18/21 11/18/21 Range/Units 13:07 13:07 13:07 Hgb 10.5 L (11.4-16.0) gm/dL MCHC 30.0 L (31.0-37.0) g/dL D-Dimer 3.05 H (<0.60) mg/L FEU Creatinine 1.95 H (0.52-1.04) mg/dL Glucose 183 H (74-99) mg/dL POC Glucose (mg/dL) (70-110) mg/dL Calcium 8.0 L (8.4-10.2) mg/dL Total Protein 6.0 L (6.3-8.2) g/dL Urine Appearance (Clear) Urine Protein (Negative) Ur Leukocyte Esterase (Negative) Urine WBC (0-5) /hpf Urine Bacteria (None) /hpf Hyaline Casts (0-2) /lpf Urine Mucus (None) /hpf Coronavirus (PCR) (Not Detectd) 11/18/21 11/18/21 11/19/21 Range/Units 13:07 13:07 07:56 Hgb (11.4-16.0) gm/dL MCHC (31.0-37.0) g/dL D-Dimer 2.96 H (<0.60) mg/L FEU Creatinine (0.52-1.04) mg/dL Glucose (74-99) mg/dL POC Glucose (mg/dL) (70-110) mg/dL Calcium (8.4-10.2) mg/dL Total Protein (6.3-8.2) g/dL Urine Appearance Cloudy H (Clear) Urine Protein Trace H (Negative) Ur Leukocyte Esterase Moderate H (Negative) Urine WBC 17 H (0-5) /hpf Urine Bacteria Rare H (None) /hpf Hyaline Casts 36 H (0-2) /lpf Urine Mucus Occasional H (None) /hpf Coronavirus (PCR) Detected A (Not Detectd) 11/19/21 11/19/21 Range/Units 08:12 11:18 Hgb (11.4-16.0) gm/dL MCHC (31.0-37.0) g/dL D-Dimer (<0.60) mg/L FEU Creatinine (0.52-1.04) mg/dL Glucose (74-99) mg/dL POC Glucose (mg/dL) 220 H 279 H (70-110) mg/dL Calcium (8.4-10.2) mg/dL Total Protein (6.3-8.2) g/dL Urine Appearance (Clear) Urine Protein (Negative) Ur Leukocyte Esterase (Negative) Urine WBC (0-5) /hpf Urine Bacteria (None) /hpf Hyaline Casts (0-2) /lpf Urine Mucus (None) /hpf Coronavirus (PCR) (Not Detectd) Microbiology - Last 24 Hours (Table) 11/18/21 13:07 Urine Culture - Preliminary Urine,Voided Assessment and Plan Assessment: 1. COVID-19 related pneumonia; today is her day 8 of symptom onset and would not qualify for remdesivir per [facility] policy. continue with the dexamethasone Heparin zinc and ascorbic acid droplet isolation and respiratory support 2. Secondary bacterial pneumonia we will check procalcitonin level and obtain sputum for gram stain and culture continue with Rocephin per ID recommendations 3. UTI; patient has been placed on IV Rocephin and azithromycin; further recommendations once urine culture is available 4. Dyspnea/elevated d-dimer; patient has a baseline creatinine of 1.9 and unable to undergo CTA chest to rule out PE; we will scheduled for VQ scan; continue with subcu heparin 5. Acute renal injury; creatinine at 1.95; we will start patient on IV fluid hydration and monitor renal function and electrolytes; avoid nephrotoxins and hypotension 6. Hypertension; currently not on any antihypertensive therapy; monitor blood pressure closely and make adjustments; not on any statins 7. Diabetes mellitus; Actos 15 mg daily; monitor Accu-Cheks before meals and at bedtime with insulin sliding scale DVT prophylaxis; SCDs/subcu heparin CODE STATUS; DO NOT RESUSCITATE
--- NOTE | 2021-11-19 19:44 | P.PN ---
Subjective Progress Note Date: 11/19/21 Principal diagnosis: covid 19 pneumonia and UTI Patient is a 86-year-old female presenting to the hospital with increasing shortness of breath that has been going on for more than a days before presentation to the hospital patient had been diagnosed with a covid 19 pneumonia also have a positive UA concerning for symptomatic UTI On today's evaluation that is 11/19/2021, the patient denies having any fever or any chills, the patient is breathing slightly comfortably today still requiring supplemental oxygen, patient denies having any chest pain or worsening cough no abdominal pain or diarrhea Objective - Vital Signs Vital signs: Vital Signs Temp 98.1 F 11/19/21 10:00 Pulse 70 11/19/21 10:00 Resp 18 11/19/21 02:40 BP 130/76 11/19/21 10:00 Pulse Ox 92 L 11/19/21 10:00 FiO2 Intake & Output 11/18/21 11/19/21 11/19/21 18:59 06:59 18:59 Intake Total 300 Balance 300 Weight 65.317 kg 65.317 kg 65.317 kg Intake: Intake, IV Titration 300 Amount Azithromycin 500 mg In 250 Sodium Chloride 0.9% 250 ml @ 250 mls/hr IVPB DAILY [facility] Rx#:[id number] cefTRIAXone 2 gm In 50 Sodium Chloride 0.9% 50 ml @ 100 mls/hr IVPB Q24HR [facility] Rx#:[id number] Other: Voiding Method Bedside Commode # Voids 1 - Exam GENERAL DESCRIPTION: An elderly female lying in bed in no distress RESPIRATORY SYSTEM: Unlabored breathing , decreased breath sounds at bases HEART: S1 S2 regular rate and rhythm , ABDOMEN: Soft , no tenderness EXTREMITIES: No edema feet - Labs CBC & Chem 7: 11/19/21 07:48 11/19/21 07:56 Labs: Abnormal Lab Results - Last 24 Hours (Table) 11/18/21 11/18/21 11/18/21 Range/Units 13:07 13:07 13:07 RBC (4.10-5.20) X 10*6/uL Hgb 10.5 L (11.4-16.0) gm/dL Hct (37.2-46.3) % MCH (27.0-32.0) pg MCHC 30.0 L (31.0-37.0) g/dL RDW (11.5-14.5) % Immature Gran # (0.00-0.04) X 10*3/uL Monocytes # (0.20-1.00) X 10*3/uL Eosinophils # (0.04-0.35) X 10*3/uL D-Dimer 3.05 H (<0.60) mg/L FEU Creatinine 1.95 H (0.52-1.04) mg/dL Glucose 183 H (74-99) mg/dL POC Glucose (mg/dL) (70-110) mg/dL Hemoglobin A1c (0.0-6.0) % Calcium 8.0 L (8.4-10.2) mg/dL Total Protein 6.0 L (6.3-8.2) g/dL Procalcitonin (0.02-0.09) ng/mL Urine Appearance (Clear) Urine Protein (Negative) Ur Leukocyte Esterase (Negative) Urine WBC (0-5) /hpf Urine Bacteria (None) /hpf Hyaline Casts (0-2) /lpf Urine Mucus (None) /hpf Coronavirus (PCR) (Not Detectd) 11/18/21 11/18/21 11/19/21 Range/Units 13:07 13:07 07:48 RBC 3.58 L (4.10-5.20) X 10*6/uL Hgb 9.1 L (11.4-16.0) gm/dL Hct 31.6 L (37.2-46.3) % MCH 25.4 L (27.0-32.0) pg MCHC 28.8 L (31.0-37.0) g/dL RDW 15.0 H (11.5-14.5) % Immature Gran # 0.05 H (0.00-0.04) X 10*3/uL Monocytes # 0.14 L (0.20-1.00) X 10*3/uL Eosinophils # 0 L (0.04-0.35) X 10*3/uL D-Dimer (<0.60) mg/L FEU Creatinine (0.52-1.04) mg/dL Glucose (74-99) mg/dL POC Glucose (mg/dL) (70-110) mg/dL Hemoglobin A1c (0.0-6.0) % Calcium (8.4-10.2) mg/dL Total Protein (6.3-8.2) g/dL Procalcitonin (0.02-0.09) ng/mL Urine Appearance Cloudy H (Clear) Urine Protein Trace H (Negative) Ur Leukocyte Esterase Moderate H (Negative) Urine WBC 17 H (0-5) /hpf Urine Bacteria Rare H (None) /hpf Hyaline Casts 36 H (0-2) /lpf Urine Mucus Occasional H (None) /hpf Coronavirus (PCR) Detected A (Not Detectd) 11/19/21 11/19/21 11/19/21 Range/Units 07:55 07:55 07:56 RBC (4.10-5.20) X 10*6/uL Hgb (11.4-16.0) gm/dL Hct (37.2-46.3) % MCH (27.0-32.0) pg MCHC (31.0-37.0) g/dL RDW (11.5-14.5) % Immature Gran # (0.00-0.04) X 10*3/uL Monocytes # (0.20-1.00) X 10*3/uL Eosinophils # (0.04-0.35) X 10*3/uL D-Dimer 2.96 H (<0.60) mg/L FEU Creatinine (0.52-1.04) mg/dL Glucose (74-99) mg/dL POC Glucose (mg/dL) (70-110) mg/dL Hemoglobin A1c 6.9 H (0.0-6.0) % Calcium (8.4-10.2) mg/dL Total Protein (6.3-8.2) g/dL Procalcitonin 0.12 H (0.02-0.09) ng/mL Urine Appearance (Clear) Urine Protein (Negative) Ur Leukocyte Esterase (Negative) Urine WBC (0-5) /hpf Urine Bacteria (None) /hpf Hyaline Casts (0-2) /lpf Urine Mucus (None) /hpf Coronavirus (PCR) (Not Detectd) 11/19/21 11/19/21 Range/Units 08:12 11:18 RBC (4.10-5.20) X 10*6/uL Hgb (11.4-16.0) gm/dL Hct (37.2-46.3) % MCH (27.0-32.0) pg MCHC (31.0-37.0) g/dL RDW (11.5-14.5) % Immature Gran # (0.00-0.04) X 10*3/uL Monocytes # (0.20-1.00) X 10*3/uL Eosinophils # (0.04-0.35) X 10*3/uL D-Dimer (<0.60) mg/L FEU Creatinine (0.52-1.04) mg/dL Glucose (74-99) mg/dL POC Glucose (mg/dL) 220 H 279 H (70-110) mg/dL Hemoglobin A1c (0.0-6.0) % Calcium (8.4-10.2) mg/dL Total Protein (6.3-8.2) g/dL Procalcitonin (0.02-0.09) ng/mL Urine Appearance (Clear) Urine Protein (Negative) Ur Leukocyte Esterase (Negative) Urine WBC (0-5) /hpf Urine Bacteria (None) /hpf Hyaline Casts (0-2) /lpf Urine Mucus (None) /hpf Coronavirus (PCR) (Not Detectd) Microbiology - Last 24 Hours (Table) 11/18/21 13:07 Urine Culture - Preliminary Urine,Voided Assessment and Plan (1) Pneumonia due to COVID-19 virus Current Visit: Yes Status: Acute Code(s): U07.1 - COVID-19; J12.82 - PNEUMONIA DUE TO CORONAVIRUS DISEASE 2018 SNOMED Code(s): [id number] Plan: 1patient presented to hospital with increasing shortness of breath and hypoxemia this patient did have evidence of pneumonia secondary to COVID-19 and a question of possible secondary bacterial pneumonia unfortunately today is her day 8 of symptom onset and would not qualify for remdesivir per [facility] policy. Patient did have a positive UA and a possible component of urinary tract infection 2procalcitonin level not significantly elevated 3 patient to continue withcontinue with the dexamethasone Heparin zinc and ascorbic acid 4patient to continue with continue with Rocephin while waiting for urine cultures to finalize 5droplet isolation and respiratory support Time with Patient: Less than 30
[2021-11-19] MEDS: MELATONIN 5 MG TABLET PO SCH (20:17)
[2021-11-19] MEDS: diphenhydrAMINE 25 MG CAP PO SCH (20:17)
[2021-11-19 20:34] LABS: Glucose,Whole Blood 391 mg/dL (70-110)
[2021-11-20 07:20] LABS: Glucose,Whole Blood 216 mg/dL (70-110)
[2021-11-20] MEDS: INSULIN ASPART (NovoLOG) 100 UNIT/ML VIAL SQ SCH ×4 (07:57→21:36)
[2021-11-20] MEDS: ASCORBIC ACID 500 MG TAB PO SCH (07:58)
[2021-11-20] MEDS: CHOLECALCIFEROL 25 MCG (1000 IU) TABLET PO SCH (07:58)
[2021-11-20] MEDS: DEXAMETHASONE SOD PHOSPHATE 10 MG/ML 1 ML VIAL IVP SCH (07:58)
[2021-11-20] MEDS: buPROPion XL 150 MG TAB.ER.24H PO SCH (07:58)
[2021-11-20] MEDS: PANTOPRAZOLE 40 MG TABLET PO SCH (07:58)
[2021-11-20] MEDS: CITALOPRAM HYDROBROMIDE 20 MG TAB PO SCH (07:58)
[2021-11-20] MEDS: ALPRAZolam 1 MG TAB PO PRN (07:59)
[2021-11-20] MEDS: risperiDONE 0.5 MG TAB PO SCH ×3 (07:59→21:37)
[2021-11-20] MEDS: HEPARIN SODIUM,PORCINE/PF 5,000 UNIT/0.5 ML SYRINGE SQ SCH ×2 (07:59→21:36)
[2021-11-20] MEDS: PIOGLITAZONE 15 MG TAB PO SCH (07:59)
[2021-11-20] MEDS: ALBUTEROL HFA INHALER INHALATION PRN ×2 (08:25→11:49)
[2021-11-20] MEDS: AZITHROMYCIN 500 MG in SODIUM CHLORIDE 0.9% 250 ML IVPB SCH (09:44)
--- NOTE | 2021-11-20 10:51 | P.PN ---
Subjective Progress Note Date: 11/20/21 Principal diagnosis: COVID-19 pneumonia, cough, shortness of breath 86-year-old female patient with past medical history of hypertension, hyperlipidemia, diabetes mellitus type 2, anxiety, depression former smoker, who came into the emergency department on 11/18/2021 with symptoms of generalized fatigue, cough, greenish mucus production. Patient is vaccinated and boosted against COVID-19. She states last week on (9 days ago), patient was playing cards with her friends, and the next day she received a phone call from her friend, who came down with COVID. Patient also started having symptoms the next day on . She took 2 home tasks and tested positive on Sunday and of this week. Patient denied any chest pain, abdominal pain, no nausea vomiting or diarrhea, she has had reduced appetite. No fevers. She was started on Paxlovid outpatient on 11/17/2021. The next day on 11/18/2021 she was brought in by her daughter to the emergency department related to generalized weakness, fatigue, and concern of worsening infection. Chest x-ray showing patchy densities within the mid lungs. EKG showed normal sinus. Lab work showed positive COVID-19 PCR test, white blood cell count of 5.8, hemoglobin of 10.5, d-dimer of 3.05, VQ scan showed low probability of pulmonary embolism. Electrolytes were within normal limits, BUN was 16 and creatinine is 1.95, LFTs were within normal limits, LDH is 326, troponin is less than 0.012, CRP is 0.5, for A LEVEL IS 0.09, urinalysis showed pyuria with 17 leukocytes, moderate leuks, patient was started on azithromycin and Rocephin with a concern of secondary bacterial infection. Urine culture is pending. She was given gentle IV hydration and started on prophylactic anticoagulation and Decadron 6 g daily. On 11/20/2021 patient seen in follow-up. Patient is feeling a bit better, still feeling tired, but appears to be in no respiratory distress, has a mild cough, nonproductive. She remains on 3 L of oxygen satting 94-96%, afebrile, vital signs have been stable. Appetite is fair, no nausea vomiting or diarrhea, patient has been get not to the commode, sometimes unassisted. No lightheadedn ess or dizziness. No comparative chest discomfort. Objective - Vital Signs Vital signs: Vital Signs Temp 97.6 F 11/20/21 06:00 Pulse 74 11/20/21 06:00 Resp 18 11/20/21 06:00 BP 152/79 11/20/21 06:00 Pulse Ox 94 L 11/20/21 06:00 FiO2 Intake & Output 11/19/21 11/20/21 11/20/21 18:59 06:59 18:59 Intake Total 300 Balance 300 Weight 65.317 kg Intake: Intake, IV Titration 300 Amount Azithromycin 500 mg In 250 Sodium Chloride 0.9% 250 ml @ 250 mls/hr IVPB DAILY [facility] Rx#:[id number] cefTRIAXone 2 gm In 50 Sodium Chloride 0.9% 50 ml @ 100 mls/hr IVPB Q24HR [facility] Rx#:[id number] Other: Voiding Method Bedside Commode # Voids 1 4 - Exam GENERAL EXAM: Alert, very pleasant, 86-year-old female on 3 L of oxygen satting 93% comfortable in no apparent distress. HEAD: Normocephalic/atraumatic. EYES: Normal reaction of pupils, equal size. Conjunctiva pink, sclera white. NOSE: Clear with pink turbinates. THROAT: No erythema or exudates. NECK: No masses, no JVD, no thyroid enlargement, no adenopathy. CHEST: No chest wall deformity. Symmetrical expansion. LUNGS: Equal air entry with no crackles, wheeze, rhonchi or dullness. CVS: Regular rate and rhythm, normal S1 and S2, no gallops, no murmurs, no rubs ABDOMEN: Soft, nontender. No hepatosplenomegaly, normal bowel sounds, no guarding or rigidity. EXTREMITIES: No clubbing, no edema, no cyanosis, 2+ pulses and upper and lower extremities. MUSCULOSKELETAL: Muscle strength and tone normal. SPINE: No scoliosis or deformity SKIN: No rashes CENTRAL NERVOUS SYSTEM: Alert and oriented -3. No focal deficits, tone is normal in all 4 extremities. PSYCHIATRIC: Alert and oriented -3. Appropriate affect. Intact judgment and insight. - Labs CBC & Chem 7: 11/19/21 07:48 11/19/21 07:56 Labs: Abnormal Lab Results - Last 24 Hours (Table) 11/19/21 11/19/21 11/19/21 Range/Units 07:48 07:55 07:55 RBC 3.58 L (4.10-5.20) X 10*6/uL Hgb 9.1 L (12.0-15.0) g/dL Hct 31.6 L (37.2-46.3) % MCH 25.4 L (27.0-32.0) pg MCHC 28.8 L (32.0-37.0) g/dL RDW 15.0 H (11.5-14.5) % Immature Gran # 0.05 H (0.00-0.04) X 10*3/uL Monocytes # 0.14 L (0.20-1.00) X 10*3/uL Eosinophils # 0 L (0.04-0.35) X 10*3/uL Carbon Dioxide (20.0-27.5) mmol/L Est GFR (CKD-EPI)AfAm (60.0-200.0) Est GFR (CKD-EPI)NonAf (60.0-200.0) Glucose (70-110) mg/dL POC Glucose (mg/dL) (70-110) mg/dL Hemoglobin A1c 6.9 H (0.0-6.0) % Calcium (8.7-10.3) mg/dL C-Reactive Protein (0.00-0.80) mg/dL Procalcitonin 0.12 H (0.02-0.09) ng/mL 11/19/21 11/19/21 11/19/21 Range/Units 07:56 11:18 16:26 RBC (4.10-5.20) X 10*6/uL Hgb (12.0-15.0) g/dL Hct (37.2-46.3) % MCH (27.0-32.0) pg MCHC (32.0-37.0) g/dL RDW (11.5-14.5) % Immature Gran # (0.00-0.04) X 10*3/uL Monocytes # (0.20-1.00) X 10*3/uL Eosinophils # (0.04-0.35) X 10*3/uL Carbon Dioxide 19.9 L (20.0-27.5) mmol/L Est GFR (CKD-EPI)AfAm 49.2 L (60.0-200.0) Est GFR (CKD-EPI)NonAf 42.5 L (60.0-200.0) Glucose 223 H (70-110) mg/dL POC Glucose (mg/dL) 279 H 266 H (70-110) mg/dL Hemoglobin A1c (0.0-6.0) % Calcium 7.8 L (8.7-10.3) mg/dL C-Reactive Protein 4.60 H (0.00-0.80) mg/dL Procalcitonin (0.02-0.09) ng/mL 11/19/21 11/20/21 Range/Units 20:32 07:18 RBC (4.10-5.20) X 10*6/uL Hgb (12.0-15.0) g/dL Hct (37.2-46.3) % MCH (27.0-32.0) pg MCHC (32.0-37.0) g/dL RDW (11.5-14.5) % Immature Gran # (0.00-0.04) X 10*3/uL Monocytes # (0.20-1.00) X 10*3/uL Eosinophils # (0.04-0.35) X 10*3/uL Carbon Dioxide (20.0-27.5) mmol/L Est GFR (CKD-EPI)AfAm (60.0-200.0) Est GFR (CKD-EPI)NonAf (60.0-200.0) Glucose (70-110) mg/dL POC Glucose (mg/dL) 391 H 216 H (70-110) mg/dL Hemoglobin A1c (0.0-6.0) % Calcium (8.7-10.3) mg/dL C-Reactive Protein (0.00-0.80) mg/dL Procalcitonin (0.02-0.09) ng/mL Microbiology - Last 24 Hours (Table) 11/18/21 13:07 Urine Culture - Final Urine,Voided 11/18/21 13:07 Blood Culture - Preliminary Blood No Growth after 24 hours 11/18/21 13:07 Blood Culture - Preliminary Blood No Growth after 24 hours Assessment and Plan Plan: Assessment: #1. Acute hypoxic respiratory failure related to acute COVID-19 infection. Patient presented to the emergency department with 8-days of symptom onset, status post completed vaccination and a booster against Covid 19 #2. Mildly elevated d-dimer, VQ scan showed low probability for PE, on p rophylactic anticoagulation #3. Possible urinary tract infection, with evidence of pyuria #4. Acute kidney injury #5. Dehydration #6. Hypertension #7. Hyperlipidemia #8. Diabetes mellitus type 2 #9. Anxiety and depression #10. Former smoker #11. Osteoarthritis Plan: Continue current medical treatment Continue Decadron 6 mg daily Continue prophylactic anticoagulation and multivitamins Continues on antibiotics for urinary tract infection Increase activity as tolerated Follow-up chest x-ray in the morning I have personally seen and examined the patient, performed the documentation and the assessment and plan as written. Number of minutes spent on the visit: [15] Time with Patient: Less than 30
[2021-11-20 11:51] LABS: Glucose,Whole Blood 244 mg/dL (70-110)
[2021-11-20] MEDS ORDERED: VANCOMYCIN IV PER PHARMACY 1 EACH MISC MISCELLANE PRN (13:57)
[2021-11-20] MEDS ORDERED: VANCOMYCIN 1,250 MG in SODIUM CHLORIDE 0.9% 250 ML IVPB ONE (14:15)
[2021-11-20 16:48] LABS: Glucose,Whole Blood 263 mg/dL (70-110)
[2021-11-20 21:15] LABS: Glucose,Whole Blood 330 mg/dL (70-110)
[2021-11-20] MEDS: diphenhydrAMINE 25 MG CAP PO SCH (21:36)
[2021-11-20] MEDS: MELATONIN 5 MG TABLET PO SCH (21:41)
[2021-11-21 07:18] LABS: Glucose,Whole Blood 248 mg/dL (70-110)
--- NOTE | 2021-11-21 07:21 | XR ---
EXAMINATION TYPE: XR chest 1V portable DATE OF EXAM: 11/21/2021 COMPARISON: 11/19/2019 HISTORY: Cough TECHNIQUE: Single frontal view of the chest is obtained. FINDINGS: Previously noted patchy densities in the mid lungs are improved. No pneumothorax. Limited inspiration with bibasilar subsegmental consolidation. No sizable pleural effusion. Arthropathy of th e shoulders. Prominence the right perihilar structures could be positional rotational short-term x-ra y recommended. IMPRESSION: 1. Improving bilateral perihilar infiltrate with persistent basilar infiltrates.
--- NOTE | 2021-11-21 07:55 | P.PN ---
Subjective Progress Note Date: 11/20/21 Principal diagnosis: covid 19 pneumonia and UTI Patient is a 86-year-old female presenting to the hospital with increasing shortness of breath that has been going on for more than a days before presentation to the hospital patient had been diagnosed with a covid 19 pneumonia also have a positive UA concerning for symptomatic UTI On today's evaluation that is 11/20/2021, the patient remains to be afebrile, the patient is breathing comfortably on nasal cannula oxygen, patient denies having any chest pain or worsening cough , the patient denies abdominal pain or diarrhea Objective - Vital Signs Vital signs: Vital Signs Temp 98.0 F 11/20/21 14:00 Pulse 82 11/20/21 14:00 Resp 18 11/20/21 06:00 BP 154/71 11/20/21 14:00 Pulse Ox 97 11/20/21 14:00 FiO2 Intake & Output 11/20/21 11/20/21 11/21/21 06:59 18:59 06:59 Intake Total 300 Balance 300 Intake: Intake, IV Titration 300 Amount Azithromycin 500 mg In 250 Sodium Chloride 0.9% 250 ml @ 250 mls/hr IVPB DAILY [facility] Rx#:[id number] cefTRIAXone 2 gm In 50 Sodium Chloride 0.9% 50 ml @ 100 mls/hr IVPB Q24HR [facility] Rx#:[id number] Other: Voiding Method Bedside Commode # Voids 4 1 # Bowel Movements 1 - Exam GENERAL DESCRIPTION: An elderly female lying in bed in no distress RESPIRATORY SYSTEM: Unlabored breathing , decreased breath sounds at bases HEART: S1 S2 regular rate and rhythm , ABDOMEN: Soft , no tenderness EXTREMITIES: No edema feet - Labs CBC & Chem 7: 11/19/21 07:48 11/21/21 05:58 Labs: Abnormal Lab Results - Last 24 Hours (Table) 11/20/21 11/20/21 11/20/21 Range/Units 07:18 11:50 16:46 POC Glucose (mg/dL) 216 H 244 H 263 H (70-110) mg/dL 11/20/21 Range/Units 21:13 POC Glucose (mg/dL) 330 H (70-110) mg/dL Microbiology - Last 24 Hours (Table) 11/18/21 13:07 Blood Culture - Preliminary Blood No Growth after 48 hours 11/18/21 13:07 Blood Culture - Final Blood 11/18/21 13:07 Urine Culture - Final Urine,Voided Assessment and Plan (1) Pneumonia due to COVID-19 virus Current Visit: Yes Status: Acute Code(s): U07.1 - COVID-19; J12.82 - PNEUMONIA DUE TO CORONAVIRUS DISEASE 2018 SNOMED Code(s): 642664895502485458 Plan: 1patient presented to hospital with increasing shortness of breath and hypoxemia this patient did have evidence of pneumonia secondary to COVID-19 and a question of possible secondary bacterial pneumonia unfortunately today is her day 8 of symptom onset and would not qualify for remdesivir per [facility] policy. Patient did have a positive UA and a possible component of urinary tract infection 2procalcitonin level not significantly elevated 3 patient to continue withcontinue with the dexamethasone Heparin zinc and ascorbic acid 4patient to continue with continue with Rocephin while waiting for urine cul tures to finalize 5patient blood cultures came back positive for gram-positive cocci questionably skin contamination versus pneumonia vancomycin has been added while waiting for the idea of this pathogen blood culture has been repeated Time with Patient: Less than 30
[2021-11-21] MEDS: HEPARIN SODIUM,PORCINE/PF 5,000 UNIT/0.5 ML SYRINGE SQ SCH ×2 (08:18→20:54)
[2021-11-21] MEDS: ASCORBIC ACID 500 MG TAB PO SCH (08:19)
[2021-11-21] MEDS: CHOLECALCIFEROL 25 MCG (1000 IU) TABLET PO SCH (08:19)
[2021-11-21] MEDS: PANTOPRAZOLE 40 MG TABLET PO SCH (08:19)
[2021-11-21] MEDS: CITALOPRAM HYDROBROMIDE 20 MG TAB PO SCH (08:19)
[2021-11-21] MEDS: INSULIN ASPART (NovoLOG) 100 UNIT/ML VIAL SQ SCH ×4 (08:19→20:54)
[2021-11-21] MEDS: buPROPion XL 150 MG TAB.ER.24H PO SCH (08:19)
[2021-11-21] MEDS: AZITHROMYCIN 500 MG in SODIUM CHLORIDE 0.9% 250 ML IVPB SCH (08:20)
[2021-11-21] MEDS: DEXAMETHASONE SOD PHOSPHATE 10 MG/ML 1 ML VIAL IVP SCH (08:20)
[2021-11-21] MEDS: PIOGLITAZONE 15 MG TAB PO SCH (08:45)
[2021-11-21] MEDS: risperiDONE 0.5 MG TAB PO SCH ×3 (08:45→21:07)
[2021-11-21] MEDS: ALPRAZolam 1 MG TAB PO PRN ×2 (08:45→21:07)
[2021-11-21] MEDS: ALBUTEROL HFA INHALER INHALATION PRN ×2 (08:49→16:50)
[2021-11-21] MEDS ORDERED: VANCOMYCIN 1,250 MG in SODIUM CHLORIDE 0.9% 250 ML IVPB ONE (09:00)
--- NOTE | 2021-11-21 11:45 | P.PN ---
Subjective Progress Note Date: 11/20/21 Principal diagnosis: COVID-19 related pneumonia Secondary bacterial pneumonia UTI 86-year-old female with a past medical he significant for diabetes mellitus hypertension gastroesophageal reflux disease apparently started getting sick last that is about 8 days ago symptom has been mostly increasing shortness of breath, patient is also complaining of cough productive of some greenish sputum over the last few days patient denies any pleuritic chest pain has been complaining generalized fatigue decreased appetite nausea but no vomit ing no abdominal pain did have some diarrhea and apparently that has improved patient was found by the daughter today to be very fatigued and the patient was brought to the hospital on arrival to the ER patient was afebrile patient was hypoxic with O2 sat of 92% currently on 4 L nasal cannula patient had normal white count no lymphopenia D-dimer was mildly elevated as well as a creatinine 1.95 limits of the normal CRP 0.5 urine has been mildly positive did have positive COVID test patient did have a chest x-ray correlate for pneumonia with patchy densities suspected within the mid lungs V/Q scan has been ordered and currently pending, patient has been admitted to hospital infectious disease was consulted for further management 11/20/2021 patient is seen and evaluated in room at bedside; remains to be afebrile, the patient is breathing comfortably on nasal cannula oxygen, patient denies having any chest pain or worsening cough , the patient denies abdominal pain or diarrhea Vital signs are stable temperature of 98.0, pulse 62, respiration 18 and blood pressure 154/70 ---procalcitonin level not significantly elevated --patient to continue withcontinue with the dexamethasone Heparin zinc and ascorbic acid -patient to continue with continue with Rocephin while waiting for urine cultures to finalize ---patient blood cultures came back positive for gram-positive cocci questionably skin contamination versus pneumonia vancomycin has been added while waiting for the idea of this pathogen blood culture has been repeated Objective - Vital Signs Vital signs: Vital Signs Temp 97.6 F 11/20/21 10:00 Pulse 72 11/20/21 10:00 Resp 18 11/20/21 06:00 BP 150/67 11/20/21 10:00 Pulse Ox 94 L 11/20/21 10:00 FiO2 Intake & Output 11/19/21 11/20/21 11/20/21 18:59 06:59 18:59 Intake Total 300 300 Balance 300 300 Weight 65.317 kg Intake: Intake, IV Titration 300 300 Amount Azithromycin 500 mg In 250 250 Sodium Chloride 0.9% 250 ml @ 250 mls/hr IVPB DAILY [facility] Rx#:[id number] cefTRIAXone 2 gm In 50 50 Sodium Chloride 0.9% 50 ml @ 100 mls/hr IVPB Q24HR [facility] Rx#:[id number] Other: Voiding Method Bedside Commode # Voids 1 4 - Exam PHYSICAL EXAMINATION: GENERAL: The patient is alert and oriented x3, not in any acute distress. Well developed, well nourished. HEENT: Pupils are round and equally reacting to light. EOMI. No scleral icterus. No conjunctival pallor. Normocephalic, atraumatic. No pharyngeal erythema. No thyromegaly. CARDIOVASCULAR: S1 and S2 present. No murmurs, rubs, or gallops. PULMONARY: Chest is clear to auscultation, no wheezing or crackles. ABDOMEN: Soft, nontender, nondistended, normoactive bowel sounds. No palpable organomegaly. MUSCULOSKELETAL: No joint swelling or deformity. EXTREMITIES: No cyanosis, clubbing, or pedal edema. NEUROLOGICAL: Gross neurological examination did not reveal any focal deficits. SKIN: No rashes. - Labs CBC & Chem 7: 11/19/21 07:48 11/21/21 05:58 Labs: Abnormal Lab Results - Last 24 Hours (Table) 11/19/21 11/19/21 11/19/21 Range/Units 07:48 07:55 07:55 Immature Gran # 0.05 H (0.00-0.04) X 10*3/uL Monocytes # 0.14 L (0.20-1.00) X 10*3/uL Eosinophils # 0 L (0.04-0.35) X 10*3/uL Carbon Dioxide (20.0-27.5) mmol/L Est GFR (CKD-EPI)AfAm (60.0-200.0) Est GFR (CKD-EPI)NonAf (60.0-200.0) Glucose (70-110) mg/dL POC Glucose (mg/dL) (70-110) mg/dL Hemoglobin A1c 6.9 H (0.0-6.0) % Calcium (8.7-10.3) mg/dL C-Reactive Protein (0.00-0.80) mg/dL Procalcitonin 0.12 H (0.02-0.09) ng/mL 11/19/21 11/19/21 11/19/21 Range/Units 07:56 16:26 20:32 Immature Gran # (0.00-0.04) X 10*3/uL Monocytes # (0.20-1.00) X 10*3/uL Eosinophils # (0.04-0.35) X 10*3/uL Carbon Dioxide 19.9 L (20.0-27.5) mmol/L Est GFR (CKD-EPI)AfAm 49.2 L (60.0-200.0) Est GFR (CKD-EPI)NonAf 42.5 L (60.0-200.0) Glucose 223 H (70-110) mg/dL POC Glucose (mg/dL) 266 H 391 H (70-110) mg/dL Hemoglobin A1c (0.0-6.0) % Calcium 7.8 L (8.7-10.3) mg/dL C-Reactive Protein 4.60 H (0.00-0.80) mg/dL Procalcitonin (0.02-0.09) ng/mL 11/20/21 11/20/21 Range/Units 07:18 11:50 Immature Gran # (0.00-0.04) X 10*3/uL Monocytes # (0.20-1.00) X 10*3/uL Eosinophils # (0.04-0.35) X 10*3/uL Carbon Dioxide (20.0-27.5) mmol/L Est GFR (CKD-EPI)AfAm (60.0-200.0) Est GFR (CKD-EPI)NonAf (60.0-200.0) Glucose (70-110) mg/dL POC Glucose (mg/dL) 216 H 244 H (70-110) mg/dL Hemoglobin A1c (0.0-6.0) % Calcium (8.7-10.3) mg/dL C-Reactive Protein (0.00-0.80) mg/dL Procalcitonin (0.02-0.09) ng/mL Microbiology - Last 24 Hours (Table) 11/18/21 13:07 Urine Culture - Final Urine,Voided 11/18/21 13:07 Blood Culture - Preliminary Blood No Growth after 24 hours 11/18/21 13:07 Blood Culture - Preliminary Blood No Growth after 24 hours Assessment and Plan Assessment: 1. COVID-19 related pneumonia; today is her day 8 of symptom onset and would not qualify for remdesivir per [facility] policy. continue with the dexamethasone Heparin zinc and ascorbic acid droplet isolation and respiratory support 2. Secondary bacterial pneumonia we will check procalcitonin level and obtain sputum for gram stain and culture continue with Rocephin per ID recommendations 3. UTI; patient has been placed on IV Rocephin and azithromycin; further recommendations once urine culture is available 4. Dyspnea/elevated d-dimer; patient has a baseline creatinine of 1.9 and unable to undergo CTA chest to rule out PE; we will scheduled for VQ scan; continue with subcu heparin 5. Acute renal injury; creatinine at 1.95; we will start patient on IV fluid hydration and monitor renal function and electrolytes; avoid nephrotoxins and hypotension 6. Hypertension; currently not on any antihypertensive therapy; monitor blood pressure closely and make adjustments; not on any statins 7. Diabetes mellitus; Actos 15 mg daily; monitor Accu-Cheks before meals and at bedtime with insulin sliding scale DVT prophylaxis; SCDs/subcu heparin CODE STATUS; DO NOT RESUSCITATE
[2021-11-21 12:01] LABS: Glucose,Whole Blood 396 mg/dL (70-110)
--- NOTE | 2021-11-21 15:00 | P.PN ---
Subjective Progress Note Date: 11/21/21 Principal diagnosis: COVID-19 related pneumonia Secondary bacterial pneumonia UTI 86-year-old female with a past medical he significant for diabetes mellitus hypertension gastroesophageal reflux disease apparently started getting sick last that is about 8 days ago symptom has been mostly increasing shortness of breath, patient is also complaining of cough productive of some greenish sputum over the last few days patient denies any pleuritic chest pain has been complaining generalized fatigue decreased appetite nausea but no vomit ing no abdominal pain did have some diarrhea and apparently that has improved patient was found by the daughter today to be very fatigued and the patient was brought to the hospital on arrival to the ER patient was afebrile patient was hypoxic with O2 sat of 92% currently on 4 L nasal cannula patient had normal white count no lymphopenia D-dimer was mildly elevated as well as a creatinine 1.95 limits of the normal CRP 0.5 urine has been mildly positive did have positive COVID test patient did have a chest x-ray correlate for pneumonia with patchy densities suspected within the mid lungs V/Q scan has been ordered and currently pending, patient has been admitted to hospital infectious disease was consulted for further management 11/20/2021 patient is seen and evaluated in room at bedside; remains to be afebrile, the patient is breathing comfortably on nasal cannula oxygen, patient denies having any chest pain or worsening cough , the patient denies abdominal pain or diarrhea Vital signs are stable temperature of 98.0, pulse 62, respiration 18 and blood pressure 154/70 ---procalcitonin level not significantly elevated --patient to continue withcontinue with the dexamethasone Heparin zinc and ascorbic acid -patient to continue with continue with Rocephin while waiting for urine cultures to finalize ---patient blood cultures came back positive for gram-positive cocci questionably skin contamination versus pneumonia vancomycin has been added while waiting for the idea of this pathogen blood culture has been repeated 11/21/2021 Patient is seen and evaluated and discussed with nursing staff; no specific complaints hypertension Vital signs are reviewed temperature of 97.4, pulse 60, respiration 12 and blood pressure 179/74 with O2 saturation of 95% on 3 L Blood work is reviewed and reveals improvement in creatinine down to 1.14 from 1.95 upon admission; blood glucose remains elevated related to Decadron; patient remains on oral hypoglycemic therapy; we will add Levemir 15 units subcu daily at bedtime vitamin patient - Patient remains on IV Rocephin; we will adjust antibiotic therapy once final urine culture results are available Objective - Vital Signs Vital signs: Vital Signs Temp 97.4 F L 11/21/21 05:52 Pulse 60 11/21/21 05:52 Resp 12 11/21/21 05:52 BP 179/74 11/21/21 05:52 Pulse Ox 95 11/21/21 05:52 FiO2 Intake & Output 11/20/21 11/21/21 11/21/21 18:59 06:59 18:59 Intake Total 300 Balance 300 Intake: Intake, IV Titration 300 Amount Azithromycin 500 mg In 250 Sodium Chloride 0.9% 250 ml @ 250 mls/hr IVPB DAILY [facility] Rx#:[id number] cefTRIAXone 2 gm In 50 Sodium Chloride 0.9% 50 ml @ 100 mls/hr IVPB Q24HR [facility] Rx#:[id number] Other: # Voids 1 4 # Bowel Movements 1 2 - Exam PHYSICAL EXAMINATION: GENERAL: The patient is alert and oriented x3, not in any acute distress. Well developed, well nourished. HEENT: Pupils are round and equally reacting to light. EOMI. No scleral icterus. No conjunctival pallor. Normocephalic, atraumatic. No pharyngeal erythema. No thyromegaly. CARDIOVASCULAR: S1 and S2 present. No murmurs, rubs, or gallops. PULMONARY: Chest is clear to auscultation, no wheezing or crackles. ABDOMEN: Soft, nontender, nondistended, normoactive bowel sounds. No palpable organomegaly. MUSCULOSKELETAL: No joint swelling or deformity. EXTREMITIES: No cyanosis, clubbing, or pedal edema. NEUROLOGICAL: Gross neurological examination did not reveal any focal deficits. SKIN: No rashes. - Labs CBC & Chem 7: 11/19/21 07:48 11/21/21 05:58 Labs: Abnormal Lab Results - Last 24 Hours (Table) 11/20/21 11/20/21 11/20/21 Range/Units 11:50 16:46 21:13 Creatinine (0.52-1.04) mg/dL POC Glucose (mg/dL) 244 H 263 H 330 H (70-110) mg/dL 11/21/21 11/21/21 Range/Units 05:58 07:17 Creatinine 1.14 H (0.52-1.04) mg/dL POC Glucose (mg/dL) 248 H (70-110) mg/dL Microbiology - Last 24 Hours (Table) 11/18/21 13:07 Blood Culture Gram Stain - Preliminary Blood Blood Culture - Preliminary Coagulase Negative Staph 11/18/21 13:07 Blood Culture - Preliminary Blood No Growth after 48 hours 11/18/21 13:07 Blood Culture - Final Blood Assessment and Plan Assessment: 1. COVID-19 related pneumonia; today is her day 8 of symptom onset and would not qualify for remdesivir per [facility] policy. continue with the dexamethasone Heparin zinc and ascorbic acid droplet isolation and respiratory support 2. Secondary bacterial pneumonia we will check procalcitonin level and obtain sputum for gram stain and culture continue with Rocephin per ID recommendations 3. UTI; patient has been placed on IV Rocephin and azithromycin; further recommendations once urine culture is available 4. Dyspnea/elevated d-dimer; patient has a baseline creatinine of 1.9 and unable to undergo CTA chest to rule out PE; we will scheduled for VQ scan; continue with subcu heparin 5. Acute renal injury; creatinine at 1.95; we will start patient on IV fluid hydration and monitor renal function and electrolytes; avoid nephrotoxins and hypotension 6. Hypertension; currently not on any antihypertensive therapy; monitor blood pressure closely and make adjustments; not on any statins 7. Diabetes mellitus; Actos 15 mg daily; monitor Accu-Cheks before meals and at bedtime with insulin sliding scale DVT prophylaxis; SCDs/subcu heparin CODE STATUS; DO NOT RESUSCITATE
--- NOTE | 2021-11-21 15:30 | P.PN ---
Subjective Progress Note Date: 11/21/21 86-year-old female patient with past medical history of hypertension, hyperlipidemia, diabetes mellitus type 2, anxiety, depression former smoker, who came into the emergency department on 11/18/2021 with symptoms of generalized fatigue, cough, greenish mucus production. Patient is vaccinated and boosted against COVID-19. She states last week on (9 days ago), patient was playing cards with her friends, and the next day she received a phone call from her friend, who came down with COVID. Patient also started having symptoms the next day on . She took 2 home tasks and tested positive on Sunday and of this week. Patient denied any chest pain, abdominal pain, no nausea vomiting or diarrhea, she has had reduced appetite. No fevers. She was started on Paxlovid outpatient on 11/17/2021. The next day on 11/18/2021 she was brought in by her daughter to the emergency department related to generalized weakness, fatigue, and concern of worsening infection. Chest x-ray showing patchy densities within the mid lungs. EKG showed normal sinus. Lab work showed positive COVID-19 PCR test, white blood cell count of 5.8, hemoglobin of 10.5, d-dimer of 3.05, VQ scan showed low probability of pulmonary embolism. Electrolytes were within normal limits, BUN was 16 and creatinine is 1.95, LFTs were within normal limits, LDH is 326, troponin is less than 0.012, CRP is 0.5, for A LEVEL IS 0.09, urinalysis showed pyuria with 17 leukocytes, moderate leuks, patient was started on azithromycin and Rocephin with a concern of secondary bacterial infection. Urine culture is pending. She was given gentle IV hydration and started on prophylactic anticoagulation and Decadron 6 g daily. On 11/20/2021 patient seen in follow-up. Patient is feeling a bit better, still feeling tired, but appears to be in no respiratory distress, has a mild cough, nonproductive. She remains on 3 L of oxygen satting 94-96%, afebrile, vital signs have been stable. Appetite is fair, no nausea vomiting or diarrhea, patient has been get not to the commode, sometimes unassisted. No lighth eadedness or dizziness. No comparative chest discomfort. 11/21/2021, the patient is being seen for a follow-up. The patient is a case of COVID 19 infection and patient is currently stable. No new complaints otherwise for now. Remains on Decadron. She has developed some hyperglycemia and this is being covered with a sliding scale coverage. No new labs are available from today. The patient remains on 3 L of oxygen by nasal cannula. Pro-calcitonin level was low. CRP was at 4.6 and lactic acid level was at 136. Repeat chest x-ray showed resolution of of the bilateral pulmonary infiltrates. The patient is complaining of some congested cough. Unable to bring up much sputum. Blood culture was positive for coronary is negative staph. Otherwise, there is been no other significant events overnight. Objective - Vital Signs Vital signs: Vital Signs Temp 97.4 F L 11/21/21 05:52 Pulse 60 11/21/21 05:52 Resp 12 11/21/21 05:52 BP 179/74 11/21/21 05:52 Pulse Ox 95 11/21/21 05:52 FiO2 Intake & Output 11/20/21 11/21/21 11/21/21 18:59 06:59 18:59 Intake Total 300 Balance 300 Intake: Intake, IV Titration 300 Amount Azithromycin 500 mg In 250 Sodium Chloride 0.9% 250 ml @ 250 mls/hr IVPB DAILY [facility] Rx#:[id number] cefTRIAXone 2 gm In 50 Sodium Chloride 0.9% 50 ml @ 100 mls/hr IVPB Q24HR [facility] Rx#:[id number] Other: # Voids 1 4 # Bowel Movements 1 2 - Exam GENERAL EXAM: Alert, very pleasant, 86-year-old female on 3 L of oxygen satting 93% comfortable in no apparent distress. HEAD: Normocephalic/atraumatic. EYES: Normal reaction of pupils, equal size. Conjunctiva pink, sclera white. NOSE: Clear with pink turbinates. THROAT: No erythema or exudates. NECK: No masses, no JVD, no thyroid enlargement, no adenopathy. CHEST: No chest wall deformity. Symmetrical expansion. LUNGS: Equal air entry with no crackles, wheeze, rhonchi or dullness. CVS: Regular rate and rhythm, normal S1 and S2, no gallops, no murmurs, no rubs ABDOMEN: Soft, nontender. No hepatosplenomegaly, normal bowel sounds, no guarding or rigidity. EXTREMITIES: No clubbing, no edema, no cyanosis, 2+ pulses and upper and lower extremities. MUSCULOSKELETAL: Muscle strength and tone normal. SPINE: No scoliosis or deformity SKIN: No rashes CENTRAL NERVOUS SYSTEM: Alert and oriented -3. No focal deficits, tone is normal in all 4 extremities. PSYCHIATRIC: Alert and oriented -3. Appropriate affect. Intact judgment and insight. - Labs CBC & Chem 7: 11/19/21 07:48 11/21/21 05:58 Labs: Abnormal Lab Results - Last 24 Hours (Table) 11/20/21 11/20/21 11/20/21 Range/Units 11:50 16:46 21:13 Creatinine (0.52-1.04) mg/dL POC Glucose (mg/dL) 244 H 263 H 330 H (70-110) mg/dL 11/21/21 11/21/21 Range/Units 05:58 07:17 Creatinine 1.14 H (0.52-1.04) mg/dL POC Glucose (mg/dL) 248 H (70-110) mg/dL Microbiology - Last 24 Hours (Table) 11/18/21 13:07 Blood Culture Gram Stain - Preliminary Blood Blood Culture - Preliminary Coagulase Negative Staph 11/18/21 13:07 Blood Culture - Preliminary Blood No Growth after 48 hours 11/18/21 13:07 Blood Culture - Final Blood Assessment and Plan Plan: #1. Acute hypoxic respiratory failure related to acute COVID-19 infection. Patient presented to the emergency department with 8-days of symptom onset, status post completed vaccination and a booster against Covid 19. Inflammatory markers are low. Repeat chest x-ray shows improvement in the bilateral pulmonary infiltrates and the patient still on oxygen 3 L per minute nasal cannula. No interval worsening shortness of breath. He remains on Decadron and there is a component of hyperglycemia related to steroids. #2. Mildly elevated d-dimer, VQ scan showed low probability for PE, on prophylactic anticoagulation #3. Possible urinary tract infection, with evidence of pyuria #4. Acute kidney injury #5. Dehydration #6. Hypertension #7. Hyperlipidemia #8. Diabetes mellitus type 2, steroid-induced hyperglycemia #9. Anxiety and depression #10. Former smoker #11. Osteoarthritis Plan: Clinically stable Chest x-rays, improving IVs on the case Tighter blood sugar control per medicine Continue current medical treatment Continue Decadron 6 mg daily Continue prophylactic anticoagulation and multivitamins Continues on antibiotics for urinary tract infection Increase activity as tolerated Follow-up chest x-ray was noted and there is improvement in the chest x-ray findings or the pulmonary infiltrates
[2021-11-21 16:35] LABS: Glucose,Whole Blood 312 mg/dL (70-110)
[2021-11-21] MEDS: INSULIN DETEMIR (LEVEMIR) 100 UNIT/ML SYR SQ SCH (20:54)
[2021-11-21] MEDS: diphenhydrAMINE 25 MG CAP PO SCH (20:54)
[2021-11-21 20:55] LABS: Glucose,Whole Blood 307 mg/dL (70-110)
[2021-11-21] MEDS: MELATONIN 5 MG TABLET PO SCH (20:57)
[2021-11-22 06:55] LABS: Glucose,Whole Blood 188 mg/dL (70-110)
[2021-11-22] MEDS: ALBUTEROL HFA INHALER INHALATION PRN ×3 (07:40→19:12)
[2021-11-22] MEDS: HEPARIN SODIUM,PORCINE/PF 5,000 UNIT/0.5 ML SYRINGE SQ SCH ×2 (07:45→22:10)
[2021-11-22] MEDS: CITALOPRAM HYDROBROMIDE 20 MG TAB PO SCH (07:45)
[2021-11-22] MEDS: ACETAMINOPHEN TAB 325 MG TAB PO PRN ×2 (07:46→22:21)
[2021-11-22] MEDS: buPROPion XL 150 MG TAB.ER.24H PO SCH (07:46)
[2021-11-22] MEDS: PANTOPRAZOLE 40 MG TABLET PO SCH (07:46)
[2021-11-22] MEDS: CHOLECALCIFEROL 25 MCG (1000 IU) TABLET PO SCH (07:46)
[2021-11-22] MEDS: ASCORBIC ACID 500 MG TAB PO SCH (07:46)
[2021-11-22] MEDS: risperiDONE 0.5 MG TAB PO SCH ×3 (07:47→22:11)
[2021-11-22] MEDS: INSULIN ASPART (NovoLOG) 100 UNIT/ML VIAL SQ SCH ×4 (07:47→22:10)
[2021-11-22] MEDS: PIOGLITAZONE 15 MG TAB PO SCH (07:47)
[2021-11-22] MEDS: DEXAMETHASONE SOD PHOSPHATE 10 MG/ML 1 ML VIAL IVP SCH (09:28)
[2021-11-22] MEDS: ALPRAZolam 1 MG TAB PO PRN ×2 (09:36→22:10)
[2021-11-22 10:47] LABS: Basophils # (A) 0 X 10*3/uL (0.00-0.10); Basophils % (A) 0 %; Eosinophils # (A) 0 X 10*3/uL (0.04-0.35); Eosinophils % (A) 0 %; HGB 9.4 g/dL (12.0-15.0); Immature Grans, Automated 0.5 %; Lymphocytes % (A) 27.7 %; MCH 26.2 pg (27.0-32.0); MCHC 30.3 g/dL (32.0-37.0); MCV 86.4 fL (80.0-97.0); Monocytes # (A) 0.31 X 10*3/uL (0.20-1.00); Monocytes % (A) 2.8 %; NRBC Per 100 WBC 0 /100 WBCS (0.0-0.0); Neutrophils # (A) 7.71 X 10*3/uL (1.80-7.70); Platelet Count 206 X 10*3/uL (140-440); RBC 3.59 X 10*6/uL (4.10-5.20); RDW 14.9 % (11.5-14.5); WBC 11.18 X 10*3/uL (4.50-10.00)
[2021-11-22 10:59] LABS: African American GFR (CKD) 59.5 (60.0-200.0); Anion Gap 10.6 mmol/L (10.00-18.00); BUN/Creat Ratio 27.9 Ratio (12.00-20.00); Blood Urea Nitrogen 27.9 mg/dL (9.0-27.0); Calcium 9.1 mg/dL (8.7-10.3); Carbon Dioxide 26.4 mmol/L (20.0-27.5); Non-African American GFR(CKD) 51.3 (60.0-200.0); Potassium 4.5 mmol/L (3.5-5.5)
[2021-11-22 12:01] LABS: Glucose,Whole Blood 167 mg/dL (70-110)
--- NOTE | 2021-11-22 13:29 | P.PN ---
Subjective Progress Note Date: 11/22/21 Principal diagnosis: COVID-19 pneumonia, cough, shortness of breath 86-year-old female patient with past medical history of hypertension, hyperlipidemia, diabetes mellitus type 2, anxiety, depression former smoker, who came into the emergency department on 11/18/2021 with symptoms of generalized fatigue, cough, greenish mucus production. Patient is vaccinated and boosted against COVID-19. She states last week on (9 days ago), patient was playing cards with her friends, and the next day she received a phone call from her friend, who came down with COVID. Patient also started having symptoms the next day on . She took 2 home tasks and tested positive on Sunday and of this week. Patient denied any chest pain, abdominal pain, no nausea vomiting or diarrhea, she has had reduced appetite. No fevers. She was started on Paxlovid outpatient on 11/17/2021. The next day on 11/18/2021 she was brought in by her daughter to the emergency department related to generalized weakness, fatigue, and concern of worsening infection. Chest x-ray showing patchy densities within the mid lungs. EKG showed normal sinus. Lab work showed positive COVID-19 PCR test, white blood cell count of 5.8, hemoglobin of 10.5, d-dimer of 3.05, VQ scan showed low probability of pulmonary embolism. Electrolytes were within normal limits, BUN was 16 and creatinine is 1.95, LFTs were within normal limits, LDH is 326, troponin is less than 0.012, CRP is 0.5, for A LEVEL IS 0.09, urinalysis showed pyuria with 17 leukocytes, moderate leuks, patient was started on azithromycin and Rocephin with a concern of secondary bacterial infection. Urine culture is pending. She was given gentle IV hydration and started on prophylactic anticoagulation and Decadron 6 g daily. On 11/20/2021 patient seen in follow-up. Patient is feeling a bit better, still feeling tired, but appears to be in no respiratory distress, has a mild cough, nonproductive. She remains on 3 L of oxygen satting 94-96%, afebrile, vital signs have been stable. Appetite is fair, no nausea vomiting or diarrhea, patient has been get not to the commode, sometimes unassisted. No lightheadedn ess or dizziness. No comparative chest discomfort. On 11/22/2021 patient seen in follow-up. Patient is resting in bed, she still fatigued and weak, but vital signs have been stable, does admit to exertional dyspnea and some mild cough. No fever or chills. Satting 98% on 3 L. Patient continues on Decadron, continues on Rocephin and vancomycin has been discontinued. Culture from 11/18/2021 showed coagulase-negative staph. Follow- up blood culture remains negative urine culture is negative. Chest x-ray showing improving bilateral perihilar infiltrates. Objective - Vital Signs Vital signs: Vital Signs Temp 97.9 F 11/22/21 10:13 Pulse 64 11/22/21 10:13 Resp 17 11/22/21 10:13 BP 185/73 11/22/21 10:13 Pulse Ox 98 11/22/21 10:13 FiO2 Intake & Output 11/21/21 11/22/21 11/22/21 18:59 06:59 18:59 Other: # Voids 2 0 # Bowel Movements 1 - Exam GENERAL EXAM: Alert, very pleasant, 86-year-old female on 3 L of oxygen satting 98% comfortable in no apparent distress. HEAD: Normocephalic/atraumatic. EYES: Normal reaction of pupils, equal size. Conjunctiva pink, sclera white. NOSE: Clear with pink turbinates. THROAT: No erythema or exudates. NECK: No masses, no JVD, no thyroid enlargement, no adenopathy. CHEST: No chest wall deformity. Symmetrical expansion. LUNGS: Equal air entry with no crackles, wheeze, rhonchi or dullness. CVS: Regular rate and rhythm, normal S1 and S2, no gallops, no murmurs, no rubs ABDOMEN: Soft, nontender. No hepatosplenomegaly, normal bowel sounds, no guarding or rigidity. EXTREMITIES: No clubbing, no edema, no cyanosis, 2+ pulses and upper and lower extremities. MUSCULOSKELETAL: Muscle strength and tone normal. SPINE: No scoliosis or deformity SKIN: No rashes CENTRAL NERVOUS SYSTEM: Alert and oriented -3. No focal deficits, tone is normal in all 4 extremities. PSYCHIATRIC: Alert and oriented -3. Appropriate affect. Intact judgment and insight. - Labs CBC & Chem 7: 11/22/21 07:32 08/09/22 07:32 Labs: Abnormal Lab Results - Last 24 Hours (Table) 11/21/21 11/21/21 11/22/21 Range/Units 16:34 20:47 06:54 WBC (4.50-10.00) X 10*3/uL RBC (4.10-5.20) X 10*6/uL Hgb (12.0-15.0) g/dL Hct (37.2-46.3) % MCH (27.0-32.0) pg MCHC (32.0-37.0) g/dL RDW (11.5-14.5) % MPV (9.5-12.2) fL Immature Gran # (0.00-0.04) X 10*3/uL Neutrophils # (1.80-7.70) X 10*3/uL Eosinophils # (0.04-0.35) X 10*3/uL BUN (9.0-27.0) mg/dL Est GFR (CKD-EPI)AfAm (60.0-200.0) Est GFR (CKD-EPI)NonAf (60.0-200.0) BUN/Creatinine Ratio (12.00-20.00) Ratio Glucose (70-110) mg/dL POC Glucose (mg/dL) 312 H 307 H 188 H (70-110) mg/dL 11/22/21 11/22/21 11/22/21 Range/Units 07:32 07:32 11:59 WBC 11.18 H (4.50-10.00) X 10*3/uL RBC 3.59 L (4.10-5.20) X 10*6/uL Hgb 9.4 L (12.0-15.0) g/dL Hct 31.0 L (37.2-46.3) % MCH 26.2 L (27.0-32.0) pg MCHC 30.3 L (32.0-37.0) g/dL RDW 14.9 H (11.5-14.5) % MPV 13.0 H (9.5-12.2) fL Immature Gran # 0.06 H (0.00-0.04) X 10*3/uL Neutrophils # 7.71 H (1.80-7.70) X 10*3/uL Eosinophils # 0 L (0.04-0.35) X 10*3/uL BUN 27.9 H (9.0-27.0) mg/dL Est GFR (CKD-EPI)AfAm 59.5 L (60.0-200.0) Est GFR (CKD-EPI)NonAf 51.3 L (60.0-200.0) BUN/Creatinine Ratio 27.90 H (12.00-20.00) Ratio Glucose 210 H (70-110) mg/dL POC Glucose (mg/dL) 167 H (70-110) mg/dL Microbiology - Last 24 Hours (Table) 11/20/21 14:28 Blood Culture - Preliminary Blood No Growth after 24 hours 11/18/21 13:07 Blood Culture - Preliminary Blood No Growth after 72 hours Assessment and Plan Plan: Assessment: #1. Acute hypoxic respiratory failure related to acute COVID-19 infection. Patient presented to the emergency department with 8-days of symptom onset, status post completed vaccination and a booster against Covid 19. Yesterday's chest x-ray showing improving bilateral perihilar infiltrates. #2. Mildly elevated d-dimer, VQ scan showed low probability for PE, on prophylactic anticoagulation #3. Possible urinary tract infection, with evidence of pyuria, urine culture showed no growth #4. Acute kidney injury #5. Dehydration #6. Hypertension #7. Hyperlipidemia #8. Diabetes mellitus type 2 #9. Anxiety and depression #10. Former smoker #11. Osteoarthritis Plan: Increase activity as tolerated Continue Decadron to complete a ten-day course Continue prophylactic anticoagulation Antibiotics per ID service recommendations Chest x-rays showing improving perihilar infiltrate We'll continue to follow She could be considered for discharge home or ECF from pulmonary perspective if cleared by medicine I have personally seen and examined the patient and reviewed the documentation. I performed a joint evaluation with the nurse practitioner in this evaluation was done more than 20 minutes. I fully agree with the documentation above and the plan of care. The patient is clinically stable. Blood sugars under better control. Continue Decadron. Wean down the FiO2 and will continue to follow. Time with Patient: Less than 30
[2021-11-22 16:38] LABS: Glucose,Whole Blood 349 mg/dL (70-110)
[2021-11-22 20:56] LABS: Glucose,Whole Blood 309 mg/dL (70-110)
[2021-11-22] MEDS: diphenhydrAMINE 25 MG CAP PO SCH (22:11)
[2021-11-22] MEDS: MELATONIN 5 MG TABLET PO SCH (22:11)
[2021-11-22] MEDS: INSULIN DETEMIR (LEVEMIR) 100 UNIT/ML SYR SQ SCH (22:11)
--- NOTE | 2021-11-23 05:43 | P.PN ---
Subjective Progress Note Date: 11/22/21 COVID-19 related pneumonia Secondary bacterial pneumonia UTI 86-year-old female with a past medical he significant for diabetes mellitus hypertension gastroesophageal reflux disease apparently started getting sick last that is about 8 days ago symptom has been mostly increasing shortness of breath, patient is also complaining of cough productive of some gre enish sputum over the last few days patient denies any pleuritic chest pain has been complaining generalized fatigue decreased appetite nausea but no vomiting no abdominal pain did have some diarrhea and apparently that has improved patient was found by the daughter today to be very fatigued and the patient was brought to the hospital on arrival to the ER patient was afebrile patient was hypoxic with O2 sat of 92% currently on 4 L nasal cannula patient had normal white count no lymphopenia D-dimer was mildly elevated as well as a creatinine 1.95 limits of the normal CRP 0.5 urine has been mildly positive did have positive COVID test patient did have a chest x-ray correlate for pneumonia with patchy densities suspected within the mid lungs V/Q scan has been ordered and currently pending, patient has been admitted to hospital infectious disease was consulted for further management 11/20/2021 patient is seen and evaluated in room at bedside; remains to be afebrile, the patient is breathing comfortably on nasal cannula oxygen, patient denies having any chest pain or worsening cough , the patient denies abdominal pain or diarrhea Vital signs are stable temperature of 98.0, pulse 62, respiration 18 and blood pressure 154/70 ---procalcitonin level not significantly elevated --patient to continue withcontinue with the dexamethasone Heparin zinc and ascorbic acid -patient to continue with continue with Rocephin while waiting for urine cultures to finalize ---patient blood cultures came back positive for gram-positive cocci questionably skin contamination versus pneumonia vancomycin has been added while waiting for the idea of this pathogen blood culture has been repeated 11/21/2021 Patient is seen and evaluated and discussed with nursing staff; no specific complaints hypertension Vital signs are reviewed temperature of 97.4, pulse 60, respiration 12 and blood pressure 179/74 with O2 saturation of 95% on 3 L Blood work is reviewed and reveals improvement in creatinine down to 1.14 from 1.95 upon admission; blood glucose remains elevated related to Decadron; patient remains on oral hypoglycemic therapy; we will add Levemir 15 units subcu daily at bedtime vitamin patient - Patient remains on IV Rocephin; we will adjust antibiotic therapy once final urine culture results are available 11/22/2021 Patient is seen and evaluated and follow-up today with pulmonary and ID following for Covid 19 pneumonia and is continued on 3L via NC along with decadron, sliding scale, long acting levemir, and IV abx in the form of ceftriaxone. Awaiting finalized urine culture. Blood pressures have been elevated and will add norvasc and continue to monitor. Patient is afebrile and denies chest pain or palpitations. Patient continues to endorse weakness and shortness of breath. PT/OT following and recommending ECF and case management following and working on Covid Hub for continued PT/OT therapy. Encouraged oral intake. Review of systems: Constitutional: No reports of fatigue, fever, or chills, reports feeling unwell and anxious Cardiovascular: No reports of chest pain or palpitations Respiratory: reports of shortness of breath with no worsening GI: No reports of nausea, vomiting, or diarrhea : No reports of dysuria or retention Neurovascular: reports of weakness All medications have been reviewed Physical exam: GENERAL: The patient is alert and oriented x2-3, tearful on exam. Well developed, well nourished. HEENT: Pupils are round and equally reacting to light. EOMI. No scleral icterus. No conjunctival pallor. Normocephalic, atraumatic. No pharyngeal erythema. No thyromegaly. CARDIOVASCULAR: S1 and S2 present. No murmurs, rubs, or gallops. PULMONARY: diminished breath sounds bilaterally with no wheezing and some rhonchi noted. ABDOMEN: Soft, nontender, nondistended, normoactive bowel sounds. No palpable organomegaly. MUSCULOSKELETAL: No joint swelling or deformity. EXTREMITIES: No cyanosis, clubbing, or pedal edema. NEUROLOGICAL: Gross neurological examination did not reveal any focal deficits. diffusely weak SKIN: No rashes. Assessment: -COVID-19 related pneumonia -Secondary bacterial pneumonia -UTI, present on admission -Dyspnea/elevated d-dimer; patient has a baseline creatinine of 1.9 and unable to undergo CTA chest to rule out PE; VQ scan low probability for PE -Acute renal injury -Hypertension -Diabetes mellitus -DVT prophylaxis; SCDs/subcu heparin -DO NOT RESUSCITATE Plan: Recommend to continue with current medications with ID and pulmonary following Patient is continued on IV abx of ceftriaxone for UTI and possible pneumonia and ID following. awaiting cultures Patient is maintained on 3L via NC and denies worsening shortness of breath. Patient is anxious and tearful on exam and support provided PT/OT following and recommending ECF, will need to be a covid hub and case management following and working on ECF. Encouraged increased activity as tolerated Encouraged oral intake. Blood pressure is elevated and will add norvasc. Possible discharge in 24-48 hours. The impression and plan of care has been dictated by Nurse Do Prac titioner as directed. Dr. Hawk MD I have performed a history and examination and MDM of this patient, discussed the same with the dictator, and agree with the dictator's assessment and plan as written ,documented as a scribe. Based on total visit time, I have performed more than 50% of the visit. Objective - Vital Signs Vital signs: Vital Signs Temp 98.5 F 11/22/21 06:04 Pulse 86 11/22/21 06:04 Resp 18 11/22/21 06:04 BP 179/75 11/22/21 06:04 Pulse Ox 95 11/22/21 07:41 FiO2 Intake & Output 11/21/21 11/22/21 11/22/21 18:59 06:59 18:59 Other: # Voids 2 0 # Bowel Movements 1 - Labs CBC & Chem 7: 11/22/21 07:32 11/22/21 07:32 Labs: Abnormal Lab Results - Last 24 Hours (Table) 11/21/21 11/21/21 11/21/21 Range/Units 12:00 16:34 20:47 POC Glucose (mg/dL) 396 H 312 H 307 H (70-110) mg/dL 11/22/21 Range/Units 06:54 POC Glucose (mg/dL) 188 H (70-110) mg/dL Microbiology - Last 24 Hours (Table) 11/20/21 14:28 Blood Culture - Preliminary Blood No Growth after 24 hours 11/18/21 13:07 Blood Culture - Preliminary Blood No Growth after 72 hours
[2021-11-23 07:05] LABS: Glucose,Whole Blood 201 mg/dL (70-110)
[2021-11-23] MEDS: CITALOPRAM HYDROBROMIDE 20 MG TAB PO SCH (07:21)
[2021-11-23] MEDS: HEPARIN SODIUM,PORCINE/PF 5,000 UNIT/0.5 ML SYRINGE SQ SCH (07:21)
[2021-11-23] MEDS: INSULIN ASPART (NovoLOG) 100 UNIT/ML VIAL SQ SCH ×2 (07:21→11:58)
[2021-11-23] MEDS: ASCORBIC ACID 500 MG TAB PO SCH (07:22)
[2021-11-23] MEDS: buPROPion XL 150 MG TAB.ER.24H PO SCH (07:22)
[2021-11-23] MEDS: CHOLECALCIFEROL 25 MCG (1000 IU) TABLET PO SCH (07:22)
[2021-11-23] MEDS: PANTOPRAZOLE 40 MG TABLET PO SCH (07:22)
[2021-11-23] MEDS: PIOGLITAZONE 15 MG TAB PO SCH (07:23)
[2021-11-23] MEDS: risperiDONE 0.5 MG TAB PO SCH (07:23)
[2021-11-23] MEDS ORDERED: amLODIPine 10 MG TAB PO SCH (09:00)
[2021-11-23] MEDS: DEXAMETHASONE SOD PHOSPHATE 10 MG/ML 1 ML VIAL IVP SCH (09:12)
[2021-11-23] MEDS: ALPRAZolam 1 MG TAB PO PRN (09:12)
[2021-11-23] MEDS ORDERED: hydrALAZINE HCL 20 MG/ML 1 ML VIAL IVP STA (09:21)
[2021-11-23 10:15] VITALS: BP 131/73; PULSE 98; RESP 17; TEMP 98
[2021-11-23 11:54] LABS: Glucose,Whole Blood 211 mg/dL (70-110)
[2021-11-23] MEDS: ALBUTEROL HFA INHALER INHALATION PRN (12:15)
--- NOTE | 2021-11-23 12:45 | P.PN ---
Subjective Progress Note Date: 11/23/21 Principal diagnosis: COVID-19 pneumonia, cough, shortness of breath 86-year-old female patient with past medical history of hypertension, hyperlipidemia, diabetes mellitus type 2, anxiety, depression former smoker, who came into the emergency department on 11/18/2021 with symptoms of generalized fatigue, cough, greenish mucus production. Patient is vaccinated and boosted against COVID-19. She states last week on (9 days ago), patient was playing cards with her friends, and the next day she received a phone call from her friend, who came down with COVID. Patient also started having symptoms the next day on . She took 2 home tasks and tested positive on Sunday and of this week. Patient denied any chest pain, abdominal pain, no nausea vomiting or diarrhea, she has had reduced appetite. No fevers. She was started on Paxlovid outpatient on 11/17/2021. The next day on 11/18/2021 she was brought in by her daughter to the emergency department related to generalized weakness, fatigue, and concern of worsening infection. Chest x-ray showing patchy densities within the mid lungs. EKG showed normal sinus. Lab work showed positive COVID-19 PCR test, white blood cell count of 5.8, hemoglobin of 10.5, d-dimer of 3.05, VQ scan showed low probability of pulmonary embolism. Electrolytes were within normal limits, BUN was 16 and creatinine is 1.95, LFTs were within normal limits, LDH is 326, troponin is less than 0.012, CRP is 0.5, for A LEVEL IS 0.09, urinalysis showed pyuria with 17 leukocytes, moderate leuks, patient was started on azithromycin and Rocephin with a concern of secondary bacterial infection. Urine culture is pending. She was given gentle IV hydration and started on prophylactic anticoagulation and Decadron 6 g daily. On 11/20/2021 patient seen in follow-up. Patient is feeling a bit better, still feeling tired, but appears to be in no respiratory distress, has a mild cough, nonproductive. She remains on 3 L of oxygen satting 94-96%, afebrile, vital signs have been stable. Appetite is fair, no nausea vomiting or diarrhea, patient has been get not to the commode, sometimes unassisted. No lightheadedn ess or dizziness. No comparative chest discomfort. On 11/22/2021 patient seen in follow-up. Patient is resting in bed, she still fatigued and weak, but vital signs have been stable, does admit to exertional dyspnea and some mild cough. No fever or chills. Satting 98% on 3 L. Patient continues on Decadron, continues on Rocephin and vancomycin has been discontinued. Culture from 11/18/2021 showed coagulase-negative staph. Follow- up blood culture remains negative urine culture is negative. Chest x-ray showing improving bilateral perihilar infiltrates. On 11/23/2021 patient seen in follow-up on medical surgical floor, she is up in the chair, breathing comfortably, and she is currently on 2 L of oxygen pulse ox is 94%, afebrile, vital signs have been stable, no acute events overnight, remains on Decadron, remains on Rocephin, prophylactic anticoagulation. Blood culture showed coagulase-negative staph, follow blood cultures have shown no growth thus far, urine culture was negative. No acute events overnight, she is anticipated to be able to go home today Objective - Vital Signs Vital signs: Vital Signs Temp 98.0 F 11/23/21 10:08 Pulse 98 11/23/21 10:08 Resp 17 11/23/21 10:08 BP 131/73 11/23/21 10:08 Pulse Ox 94 L 11/23/21 10:08 FiO2 Intake & Output 11/22/21 11/23/21 11/23/21 18:59 06:59 18:59 Output Total 3 Balance -3 Output: Stool 3 Other: Voiding Method Bedside Commode # Voids 6 3 # Bowel Movements 4 3 - Exam GENERAL EXAM: Alert, very pleasant, 86-year-old female on 3 L of oxygen satting 98% comfortable in no apparent distress. HEAD: Normocephalic/atraumatic. EYES: Normal reaction of pupils, equal size. Conjunctiva pink, sclera white. NOSE: Clear with pink turbinates. THROAT: No erythema or exudates. NECK: No masses, no JVD, no thyroid enlargement, no adenopathy. CHEST: No chest wall deformity. Symmetrical expansion. LUNGS: Equal air entry with no crackles, wheeze, rhonchi or dullness. CVS: Regular rate and rhythm, normal S1 and S2, no gallops, no murmurs, no rubs ABDOMEN: Soft, nontender. No hepatosplenomegaly, normal bowel sounds, no guarding or rigidity. EXTREMITIES: No clubbing, no edema, no cyanosis, 2+ pulses and upper and lower extremities. MUSCULOSKELETAL: Muscle strength and tone normal. SPINE: No scoliosis or deformity SKIN: No rashes CENTRAL NERVOUS SYSTEM: Alert and oriented -3. No focal deficits, tone is normal in all 4 extremities. PSYCHIATRIC: Alert and oriented -3. Appropriate affect. Intact judgment and insight. - Labs CBC & Chem 7: 11/22/21 07:32 11/22/21 07:32 Labs: Abnormal Lab Results - Last 24 Hours (Table) 11/22/21 11/22/21 11/23/21 Range/Units 16:37 20:54 07:03 POC Glucose (mg/dL) 349 H 309 H 201 H (70-110) mg/dL 11/23/21 Range/Units 11:52 POC Glucose (mg/dL) 211 H (70-110) mg/dL Microbiology - Last 24 Hours (Table) 11/20/21 14:28 Blood Culture - Preliminary Blood No Growth after 48 hours 11/18/21 13:07 Blood Culture - Preliminary Blood No Growth after 96 hours 11/18/21 13:07 Blood Culture Gram Stain - Final Blood Blood Culture - Final Coagulase Negative Staph Assessment and Plan Plan: Assessment: #1. Acute hypoxic respiratory failure related to acute COVID-19 infection. Patient presented to the emergency department with 8-days of symptom onset, status post completed vaccination and a booster against Covid 19. Yesterday's chest x-ray showing improving bilateral perihilar infiltrates. #2. Mildly elevated d-dimer, VQ scan showed low probability for PE, on prophylactic anticoagulation #3. Possible urinary tract infection, with evidence of pyuria, urine culture showed no growth #4. Acute kidney injury #5. Dehydration #6. Hypertension #7. Hyperlipidemia #8. Diabetes mellitus type 2 #9. Anxiety and depression #10. Former smoker #11. Osteoarthritis Plan: No acute events overnight Patient could be considered for discharge home today Obtain home oxygen assessment Outpatient follow-up with Dr. Flores in the office in 7-10 days I have personally seen and examined the patient and reviewed the documentation. I performed a joint evaluation with the nurse practitioner in this evaluation was done more than 10 minutes. I fully agree with the documentation above and the plan of care. The patient is clinically stable. No new complaints. The patient can and should be weaned off the FiO2. I cut her down to 2 L. Should be evaluated for home O2 and discharge fracture being progress. Time with Patient: Less than 30
[2021-11-23] MEDS: ACETAMINOPHEN TAB 325 MG TAB PO PRN (14:28)
--- NOTE | 2021-11-24 11:06 | P.DS ---
Providers Date of admission: 11/18/21 15:28 Expected date of discharge: 11/23/21 Attending physician: Alia Reeves MD Consults: 11/18/21 15:28 Consult Physician Routine Consulting Provider: Lyle Flores Consult Reason/Comments: covid 19 pneumonia Do you want consulting provider notified?: Yes, Notify in am Consult Physician Routine Consulting Provider: Akash Walsh Consult Reason/Comments: covid 19 pneumonia Do you want consulting provider notified?: Yes Primary care physician: Harvey Wesley Hospital Course: Final diagnosis -COVID-19 related pneumonia -Secondary bacterial pneumonia -UTI, present on admission -Dyspnea/elevated d-dimer; patient has a baseline creatinine of 1.9 and unable to undergo CTA chest to rule out PE; VQ scan low probability for PE -Acute renal injury -Hypertension -Diabetes mellitus -Gait dysfunction -DVT prophylaxis -DO NOT RESUSCITATE Discharge disposition Patient is being discharged in a stable condition with guarded prognosis to home with home care . Patient will follow-up with Harvey Dyson in the outpatient setting upon discharge. Patient is to also follow-up with pulmonary in the next 2-3 weeks. Patient will continue on a dexamethasone taper along with inhaler and will continue to require 3 L of oxygen via nasal cannula secondary to COVID-19 pneumonia. Total time taken is greater than 35 minutes. Hospital course This is a 86-year-old female who was recently admitted with have been progressively feeling worse and increasing shortness of breath with a cough and productive phlegm over the last few days with 8 days ago onset and continued to worsen. Patient was being closely monitored by infectious disease and also pulmonary. Patient was found to be covered positive requiring some oxygen. Patient continued to be on oxygen and will continue on 3 L via nasal cannula to manage COVID-19. Patient was also maintained on IV antibiotics in the form of ceftriaxone for possible urinary tract infection and urine cultures have been were negative. Patient continues with weakness and was seen and evaluated by physical therapy recommending rehab although family is adamant about taking her home and will increase care in the home. She will continue a dexamethasone taper and also vitamin supplements and albuterol. Patient to follow-up with primary care provider along with pulmonary in the outpatient setting. Currently no reports of chest pain, worsening shortness of breath, or palpitations. Patient is afebrile. No reports of nausea or vomiting and patient is tolerating diet. Patient will be discharged home with home care today. Guarded prognosis and patient is high risk for readmission. Physical exam: Gen: This is a 86-year-old female awake, alert and oriented 2-3. Well-develope d, well-nourished. HEENT: Head is atraumatic, normocephalic. Pupils equal, round. Sclerae is anicteric. NECK: Supple. No JVD. No lymphadenopathy. No thyromegaly. LUNGS: Diminished breath sounds bilaterally with some scattered rhonchi noted No intercostal retractions. HEART: Regular rate and rhythm. No murmur. ABDOMEN: Soft. Bowel sounds are present. No masses. No tenderness. EXTREMITIES: No pedal edema. No calf tenderness. NEUROLOGICAL: Patient is awake, alert and oriented x3. Cranial nerves 2 through 12 are grossly intact. Diffusely weak Please refer to medication reconciliation sheet for a list of medications. The impression and plan of care has been dictated by Vonda Alvarez, Nurse Practitioner as directed. Dr. Stuart MD I have performed a history and examination and MDM of this patient, discussed the same with the dictator, and agree with the dictator's assessment and plan as written ,documented as a scribe. Based on total visit time, I have performed more than 50% of the visit. Patient Condition at Discharge: Fair Plan - Discharge Summary Discharge Rx Participant: No New Discharge Prescriptions: New Albuterol Inhaler [Ventolin Hfa Inhaler] 2 puff INHALATION RT-Q6H PRN 30 Days #1 each PRN Reason: Shortness Of Breath Or Wheezing Ascorbic Acid [Vitamin C] 500 mg PO DAILY 30 Days #30 tab Cholecalciferol [Vitamin D3 (25 Mcg = 1000 Iu)] 50 mcg PO DAILY 30 Days #60 tab dexAMETHasone 6 mg PO DAILY 5 Days #5 tablet amLODIPine [Norvasc] 10 mg PO DAILY 30 Days #30 tab Acetaminophen Tab [Tylenol] 650 mg PO Q4HR PRN #0 tab PRN Reason: Fever And/ Or Pain Continue Omeprazole 20 mg PO DAILY Citalopram Hydrobromide [CeleXA] 40 mg PO DAILY Melatonin [Melatonin ER] 10 mg PO HS ALPRAZolam [Xanax] 1 mg PO BID PRN PRN Reason: Anxiety fentaNYL 75MCG/HR PATCH [Duragesic 75MCG/HR] 1 patch TRANSDERM Q72H risperiDONE 0.5 mg PO TID Nirmatrelvir/Ritonavir [Paxlovid 2X150 mg-100 mg (Eua)] 1 dose PO BID Cranberry Fruit Extract [Cranberry] 500 mg PO DAILY Albuterol Nebulized [Ventolin Nebulized] 2.5 mg INHALATION RT-Q6H PRN PRN Reason: Shortness Of Breath buPROPion HCL [Wellbutrin XL] 150 mg PO DAILY Pioglitazone [Actos] 15 mg PO DAILY diphenhydrAMINE [Benadryl] 25 mg PO HS Discharge Medication List Omeprazole 20 mg PO DAILY 02/04/16 [History] Citalopram Hydrobromide [CeleXA] 40 mg PO DAILY 10/29/16 [History] ALPRAZolam [Xanax] 1 mg PO BID PRN 08/25/21 [History] Melatonin [Melatonin ER] 10 mg PO HS 08/25/21 [History] Pioglitazone [Actos] 15 mg PO DAILY 08/25/21 [History] buPROPion HCL [Wellbutrin XL] 150 mg PO DAILY 08/25/21 [History] fentaNYL 75MCG/HR PATCH [Duragesic 75MCG/HR] 1 patch TRANSDERM Q72H 08/25/21 [History] Albuterol Nebulized [Ventolin Nebulized] 2.5 mg INHALATION RT-Q6H PRN 11/18/21 [History] Cranberry Fruit Extract [Cranberry] 500 mg PO DAILY 11/18/21 [History] Nirmatrelvir/Ritonavir [Paxlovid 2X150 mg-100 mg (Eua)] 1 dose PO BID 11/18/21 [History] diphenhydrAMINE [Benadryl] 25 mg PO HS 11/18/21 [History] risperiDONE 0.5 mg PO TID 11/18/21 [History] Acetaminophen Tab [Tylenol] 650 mg PO Q4HR PRN #0 tab 11/23/21 [Rx] Albuterol Inhaler [Ventolin Hfa Inhaler] 2 puff INHALATION RT-Q6H PRN 30 Days #1 each 11/23/21 [Rx] Ascorbic Acid [Vitamin C] 500 mg PO DAILY 30 Days #30 tab 11/23/21 [Rx] Cholecalciferol [Vitamin D3 (25 Mcg = 1000 Iu)] 50 mcg PO DAILY 30 Days #60 tab 11/23/21 [Rx] amLODIPine [Norvasc] 10 mg PO DAILY 30 Days #30 tab 11/23/21 [Rx] dexAMETHasone 6 mg PO DAILY 5 Days #5 tablet 11/23/21 [Rx] Follow up Appointment(s)/Referral(s): [facility],Equipment [NON-STAFF] - As Needed (Call [facility] to arrange delivery of the Oxygen Concentrator. 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 Activity Limited until follow-up Follow-up with primary care provider on discharge Follow-up with pulmonary the outpatient setting in the next 2 weeks Continue taking medications as prescribed Continue with oxygen at 3 L via nasal cannula Recommend repeat labs in the next 2-3 days Recommend following consistent carb heart healthy diet and monitoring blood sugars Blood sugars expected to be elevated secondary to steroids and recommend continue 5 days of dexamethasone to complete the course Discharge/Stand Alone Forms: [facility] Home Discharge Disposition: HOME WITH HOME HEALTH SERVICES
== END 2021-11-23 15:35 | disposition home health service (06) | DRG 177 ==
LOC: EC 12:29 → 4SSUR 15:28
PROVIDERS: ADMIT Internal Medicine; ATTEND Internal Medicine
PROC: 3E0333Z Introduction of Anti-inflammatory into Peripheral Vein, Percutaneous Approach (ICD-10-PCS; principal; 2021-11-18)
DX: U07.1 COVID-19 (principal); J12.82 Pneumonia due to coronavirus disease 2019; J96.01 Acute respiratory failure with hypoxia; J15.9 Unspecified bacterial pneumonia; N39.0 Urinary tract infection, site not specified; N17.9 Acute kidney failure, unspecified; I10 Essential (primary) hypertension; F32.A Depression, unspecified; E11.65 Type 2 diabetes mellitus with hyperglycemia; E86.0 Dehydration; B95.7 Other staphylococcus as the cause of diseases classified elsewhere; E78.5 Hyperlipidemia, unspecified; K21.9 Gastro-esophageal reflux disease without esophagitis; F41.9 Anxiety disorder, unspecified; M19.90 Unspecified osteoarthritis, unspecified site; M54.9 Dorsalgia, unspecified; R79.89 Other specified abnormal findings of blood chemistry; Z66 Do not resuscitate; T38.0X5A Adverse effect of glucocorticoids and synthetic analogues, initial encounter; R26.9 Unspecified abnormalities of gait and mobility; Z96.653 Presence of artificial knee joint, bilateral; Z87.891 Personal history of nicotine dependence; Z79.84 Long term (current) use of oral hypoglycemic drugs; Z79.891 Long term (current) use of opiate analgesic; Z91.041 Radiographic dye allergy status; Z88.7 Allergy status to serum and vaccine; Z88.5 Allergy status to narcotic agent; Z90.89 Acquired absence of other organs; Z79.899 Other long term (current) drug therapy; Z82.49 Family history of ischemic heart disease and other diseases of the circulatory system
CPT/HCPCS: 36415; 71045; 78580; 80048; 80053; 81001; 82565; 82728; 83036; 83605; 83615; 83735; 84145; 84484; 85025; 85379; 85610; 85730; 86140; 87040; 87086; 87635; 93005; 94640; 94760; 96361; 96365; 96367; 96375; 99285

== ENCOUNTER 2023-11-25 20:36 | Inpatient (IN) | payer MEDICARE, OTHER ==
[~2023-11-25 20:36] MED LIST changes: -BACITRACIN 50,000 UNIT, POLYMYXIN B 500,000 UNIT in SODIUM CHLORIDE 0.9% IRRIGATIO 1,00... IRRIGATION ONE; -HYDROmorphone 1 MG/ML 1 ML SYRINGE IVP PRN; +KETOROLAC 15 MG/ML 1 ML VIAL ONE; -LIDOCAINE 1% 20 ML VIAL (10MG/ML) FOR IV START INTRADERMA PRN; -ONDANSETRON 4 MG/2 ML VIAL IVP ONE; -ceFAZolin 2 GM in SODIUM CHLORIDE 0.9% 100 ML IVPB ONE; +tiZANidine 4 MG TAB ONE
[2023-11-25] MEDS ORDERED: oxyCODONE-APAP 5-325MG 1 EACH TAB ONE (22:18)
[2023-11-26] MEDS ORDERED: ALPRAZolam 1 MG TAB ONE ×2 (01:23→08:01)
[2023-11-26] MEDS ORDERED: oxyCODONE-APAP 5-325MG 1 EACH TAB ONE ×3 (08:00→21:07)
[2023-11-26] MEDS ORDERED: amLODIPine 10 MG TAB ONE ×2 (08:01→21:08)
[2023-11-26] MEDS ORDERED: CITALOPRAM HYDROBROMIDE 20 MG TAB ONE (08:01)
[2023-11-26] MEDS ORDERED: ACETAMINOPHEN TAB 325 MG TAB ONE (13:16)
[2023-11-26] MEDS ORDERED: MELATONIN 5 MG TABLET ONE (21:07)
[2023-11-26] MEDS ORDERED: risperiDONE 0.5 MG TAB ONE (23:59)
[2023-11-26] MEDS ORDERED: PIOGLITAZONE 15 MG TAB ONE (23:59)
[2023-11-26] MEDS ORDERED: DICLOFENAC SODIUM GEL 50 GM TUBE TOPICAL ONE (23:59)
[2023-11-27] MEDS ORDERED: ALPRAZolam 1 MG TAB ONE ×2 (03:28→21:21)
[2023-11-27] MEDS ORDERED: diphenhydrAMINE 25 MG CAP ONE ×2 (03:29→23:32)
[2023-11-27] MEDS ORDERED: oxyCODONE-APAP 5-325MG 1 EACH TAB ONE ×2 (03:31→09:22)
[2023-11-27] MEDS ORDERED: risperiDONE 0.5 MG TAB ONE (09:00)
[2023-11-27] MEDS ORDERED: buPROPion XL 300 MG TAB.ER.24H PO ONE (09:22)
[2023-11-27] MEDS ORDERED: PANTOPRAZOLE 40 MG TABLET PO ONE (09:22)
[2023-11-27] MEDS ORDERED: CITALOPRAM HYDROBROMIDE 20 MG TAB ONE (09:22)
[2023-11-27] MEDS ORDERED: amLODIPine 10 MG TAB ONE ×2 (09:23→21:22)
[2023-11-27] MEDS ORDERED: HYDROcodone/APAP 5-325MG 1 EACH TAB ONE (09:35)
[2023-11-27] MEDS ORDERED: MELOXICAM 7.5 MG TAB ONE (16:46)
[2023-11-27] MEDS ORDERED: MELATONIN 5 MG TABLET ONE (21:21)
[2023-11-28] MEDS ORDERED: PANTOPRAZOLE 40 MG TABLET PO ONE (09:13)
[2023-11-28] MEDS ORDERED: amLODIPine 10 MG TAB ONE (09:13)
[2023-11-28] MEDS ORDERED: MELOXICAM 7.5 MG TAB ONE (09:13)
[2023-11-28] MEDS ORDERED: CITALOPRAM HYDROBROMIDE 20 MG TAB ONE ×2 (09:21→09:29)
[2023-11-28] MEDS ORDERED: ALPRAZolam 1 MG TAB ONE (09:43)
--- NOTE | 2023-12-26 14:06 | CT ---
[id number] ALEXANDRA CARDONA : 1935 EXAM: CT lumbar spine without contrast. DATE: 11/25/2023 18:37 INDICATION: Pain COMPARISON: None, please note PACS downtime occurred during the radiologist interpretation of these i mages with limited priors/reports.. TECHNIQUE: Multiple axial images were obtained from the midportion of T11 through the sacroiliac elaine nts. Soft tissue and bone windows in coronal and sagittal planes were obtained and reviewed. One or more CT dose reduction strategies were utilized during this examination. Total DLP was 988.8 mGycm. FINDINGS: Alignment: There are 5 lumbar type vertebral bodies within normal alignment. Bone: Multilevel degeneration changes throughout the spine with compression deformity with complete l oss centrally of T12 with retropulsion up to 6 mm. There is moderate spinal canal stenosis. Degenerat ion changes worse at L2-L3 with disc endplate sclerosis and vacuum disc phenomenon osteophyte formati on and facet joint arthropathy. Fixation hardware at L4-L5 with hardware intact. L4-L5 and L5-S1 disc ectomy changes. Laminectomy changes at L5. Discs: T11-T12: Degeneration with moderate to severe bilateral neural foraminal stenosis. T12-L1: No significant spinal canal or neural foraminal stenosis. L1-L2: No significant spinal canal or neural foraminal stenosis. L2-L3: Disc bulge and facet joint arthropathy result in mild spinal canal and moderate bilateral neur al foraminal stenosis. L3-L4: Disc bulge and facet joint arthropathy result in mild spinal canal and moderate to severe bila teral neural foraminal stenosis. L4-L5: No significant spinal canal or neural foraminal stenosis. L5-S1: No significant spinal canal or neural foraminal stenosis. Other: 7 mm right lower lobe pulmonary nodule. Scattered colonic diverticula. Atherosclerosis arteria l vasculature. Elevated left diaphragm. IMPRESSION: T12 compression deformity with moderate spinal canal stenosis and complete height loss. Chronicity is unclear correlate with back pain consider MRI. No additional evidence for acute fracture. Severe degeneration changes at L2-L3 Disc degeneration changes with moderate to severe L3-L4, T11-T12 bilateral neural foraminal stenosis Fixation hardware at L4-L5 with hardware intact. 7 mm right lower lobe pulmonary nodule comparisons with priors would be of benefit. Consider follow-u p in 6-12 months to ensure stability.
--- NOTE | 2023-12-26 15:53 | XR ---
[id number] ALEXANDRA DOOLEY : 1935 EXAM: 2 radiographic views of the right humerus 3 radiographic views of the right shoulder. DATE: 11/25/2023 18:00 INDICATION: Reason for study: PAIN NO KNOWN INJURY COMPARISON: None TECHNIQUE: 2 radiographic views of the right humerus, examined in frontal and lateral projections. The right shoulder was evaluated in frontal lateral and scapular Y views. FINDINGS: No evidence of acute osseous pathology, joint dislocation, or soft tissue swelling. The rem aining portions of the visualized chest are unremarkable. Mild degeneration changes the glenohumeral Hamilton clavicular joint with osteophyte formation and j oint space narrowing. IMPRESSION: No acute osseous pathology. 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
== END 2023-11-28 15:40 | disposition home health service (06) | DRG 544 ==
LOC: 4SSUR 20:36
PROVIDERS: ADMIT Internal Medicine; ATTEND Internal Medicine
DX: M48.54XA Collapsed vertebra, not elsewhere classified, thoracic region, initial encounter for fracture (principal); E11.9 Type 2 diabetes mellitus without complications; I10 Essential (primary) hypertension; M54.50 Low back pain, unspecified; G89.29 Other chronic pain; M25.511 Pain in right shoulder; Z91.041 Radiographic dye allergy status; Z79.84 Long term (current) use of oral hypoglycemic drugs; Z79.899 Other long term (current) drug therapy; Z88.7 Allergy status to serum and vaccine
CPT/HCPCS: 72131; 96372; 99285